=== PATIENT | female | born 1945 | race African-American/Black ===

== ENCOUNTER 2024-06-25 13:38 | Outpatient (CLI) | payer MEDICARE, SELFPAY ==
--- NOTE | ~2024-06-25 | XR_ITS ---
[id number] Ordering provider: Himanshu Quinn, History: . Cervicalgia . Comparison: None. FINDINGS: VERTEBRAL BODIES: Normal height and alignment. No visible fracture or subluxation. The dens is intact . DISK SPACES: Well maintained. PARASPINOUS SOFT TISSUES: No prevertebral soft tissue swelling. 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 IMPRESSION: No acute osseous abnormality cervical spine. 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 Reviewed, dictated and finalized at location A. IMPRESSION: No acute osseous abnormality cervical spine. 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
--- OUTSIDE RECORDS SUMMARY | 2024-06-26 14:07 | XMS_ITS | Continuity of Care Document ---
Author Organization [facility] Address [address] [place] [address] [address] [place] [address] Phone Care Team Providers Care Medical Office Coordinator Name Role Phone Abdulaziz Mak MD Unavailable Unavailable Procedures Procedure Date Office/outpatient Visit, Est Office/outpatient Visit, Est Progressive Lens, Plastic Frames Deluxe Tint Plastic, Non-Lizette Tax - Medical Office/outpatient Visit, Est Progressive Lens, Plastic Frames Deluxe Tint Plastic, Lizette 1 Or 2 Tax - Medical Office/outpatient Visit, Est Advance Directives Directive Yes / No Effective Date File Name No Information Encounters Encounter Description Practice Location Reason(s) For Visit Diagnoses Date Provider Providers Copied on Encounter Office/outpat ient Visit, [facility], [address] [place] [address] [address], [place], [place], [id number], [place] tel:[phone] [facility] No Information Oct-1 8-200 7 Aubree Cintron. [address] [facility] [address], [place], [place], [id number], [place]. tel:[phone] Office/outpat ient Visit, [facility], [address], [place], [place], [id number], [place] tel:[phone] [facility] No Information Sep-0 4-200 7 Aubree Cintron. [address], [place], [place], [id number], [place]. tel:[phone] [facility], [address], [place], [place], [id number], [place] tel:[phone] [facility] No Information 8[address] [facility] . [address] [facility], [address], [place], [place], [address], [place]. tel:[phone] Referring Provider: Abdulaziz Keen, [address] [facility] [address], [place], [address] . tel:[phone] sulting Provider: Dave Coelho, [facility], [place], [address]. tel:[phone] Office/outpat ient Visit, [facility], [address], [place], [place], [address], [place] tel:[phone] [facility] No Information 8200 7 Aubree Cintron. [address] [facility], [facility] [place], [id number], [place]. tel:[phone] [facility], [address], [place], [place], [address], [place] tel:[phone] [facility] No Information 0200 7 [facility] . [address] [facility], [address], [place], [place], [address], [place]. tel:[phone] Referring Provider: Abdulaziz Keen, [address] [facility] [address], [place], [address] . tel:[phone] sulting Provider: Dave Coelho, [facility] [address] [facility], [place], [address]. tel:[phone] Office/outpat ient Visit, [facility], [address], [place], [place], [address], [place] tel:[phone] [facility] No Information 0200 7 Aubree Cintron. [address] [facility], [place], [place], [address], [place]. tel:[phone] Family History Family Member Type Diagnosis Age At Onset No Information Payers Payer name Insurance type Covered republican ID Authoriza tion(s) No Information Social History Type Description Quantity Date Captured Comments Sex Female Smoking Status No Information Chief Complaint And Reason For Visit No Information Reason For Referral Reason For Referral No Information History Of Present Illness Encounter Date Complaint History Of Prese nt Illness No Information Functional Status Date Functional Assessmen t No Information Instructions Date Instruction Additional Infor mation No Information Assessments Type Assessment Date No Information Patient Care Teams Name Effective Dates (start - stop) Status Members No Information
--- OUTSIDE RECORDS SUMMARY | 2024-06-26 14:07 | XMS_ITS | Data Portability ---
Author Organization [place] - [facility] [employer], Main Office Address [address] [place] [address] Assessment Encounter Date Assessment Date Assessment LastModified by Organization Details LastModified Time 08/07/2022 08/07/2022 AFib anticoagulated and rate controlled. Rhinitis Singulair gout allopurinol GERD omeprazole AFib RVR stable still follows with Pulmonary Cardiology continue current therapy and follow up with me in 4 months [email or web address] Not available 09/15/2022 18:55:36 11/06/2022 11/06/2022 Will continue current therapy will follow-up in 4 months [email or web address] Not available 11/19/2022 10:24:25 12/11/2022 12/11/2022 Continue current therapy follow-up in 4 months [email or web address] Not available 12/13/2022 11:44:02 03/12/2023 03/12/2023 Warned of the il l effects of tobacco which were included but not limited to increased tumors of the aerodigestive tract increase incidence of heart attack stroke and cancer that can lead to cope chronic illness or sudden follow-up with me in 4 months continue current therapy [email or web address] Not available 03/25/2023 09:34:46 Plan of Treatment Reminders Order Date Submit Date Provider Last Modified By Organization Details Last Modified Time Details Appointments None recorded. Lab uric acid, serum or plasma 2022 023 [email or web address] [facility] (Lab), [address] [place], [address], 16:04:31 HbA1c (hemoglobin A1c), blood [email or web address] [place] [address] (Lab), [address] [place], [address], 4 18:25:52 T4, free, serum 2022 023 [facility] (Lab), [address] [place], [address], 3 16:04:55 T3, free, serum or plasma 2022 023 [facility] (Lab), [address] [place], [address], 3 16:36:30 TSH, serum or plasma 2022 023 [facility] (Lab), [address] [place], [address], 3 16:06:46 CMP, serum or plasma 2022 023 [facility] (Lab), [address] [place], [address], 3 16:04:20 lipid panel, serum 2022 023 [facility] (Lab), [address] [place], [address], 3 16:04:25 CBC w/ auto diff 2022 023 [email or web address] [facility] (Lab), [address] [place], [address], 3 13:47:39 Referral None recorded. Procedures None recorded. Surgeries None recorded. Imaging None recorded. Medication Orders mirtazapine 15 mg tablet 2022 023 [email or web address] [id number], [address], [place], [id number], 4 11:16:17 Patient TargetsNo targets recorded. Patient InstructionsNo instructions recorded. Reason for Referral None Reported. Results Created Date Observation Date Name Description Value Unit Range Abnormal Flag Note LastModifiedBy Organization Detail LastModifiedTime 11/07/1911/06/2022 CBC/C OMPLE TE BLD COUNT W/DIF F white blood cells 7.8 x10'3 /uL 4.2-10 .8 Not Available [facility] (Lab) [address] [place], [address], 11/06/2022 12:55:26 11/07/1911/06/2022 CBC/C OMPLE TE BLD COUNT W/DIF F red blood cells 3.97 x10'6 /uL 3.80-5 .20 Not Available [facility] (Lab) [address] [place], [address], 11/06/2022 12:55:26 11/07/1911/06/2022 CBC/C OMPLE TE BLD COUNT W/DIF F hemoglobin 11.8 g/dL 12.0-1 5.6 low Not Available [facility] (Lab) [address] [place], [address], 11/06/2022 12:55:26 11/07/1911/06/2022 CBC/C OMPLE TE BLD COUNT W/DIF F hematocrit 36.5 % 35.7-4 5.7 Not Available [facility] (Lab) [address] [place], [address], 11/06/2022 12:55:26 11/07/1911/06/2022 CBC/C OMPLE TE BLD COUNT W/DIF F mean red cell volume 91.9 fL 82.0-9 9.0 Not Available [facility] (Lab) [address] [place], [address], 11/06/2022 12:55:26 11/07/19 23 11/06/2022 CBC/C OMPLE TE BLD COUNT W/DIF F mean red cell hemoglobin 29.7 pg 27.0-3 3.0 Not Available [facility] (Lab) [address] [place], [address], 11/06/2022 12:55:26 11/07/1911/06/2022 CBC/C OMPLE TE BLD COUNT W/DIF F mean RBC HGB concentratio n 32.3 g/dL 31.0-[address] [facility] (Lab) [address] [place], [address], 11/06/2022 12:55:26 11/07/1911/06/2022 CBC/C OMPLE TE BLD COUNT W/DIF F red cell distribution width 15.6 % 11.8-1 5.5 high Not Available [facility] (Lab) [address] [place], [address], 11/06/2022 12:55:26 11/07/1911/06/2022 CBC/C OMPLE TE BLD COUNT W/DIF F platelets 201 x10'3 /uL 150-40 0 Not Available [facility] (Lab) [address] [place], [address], 11/06/2022 12:55:26 11/07/1911/06/2022 CBC/C OMPLE TE BLD COUNT W/DIF F mean platelet volume 9.7 fL 9.0-12 .4 Not Available [facility] (Lab) [address] [place], [address], 11/06/2022 12:55:26 11/07/1911/06/2022 CBC/C OMPLE TE BLD COUNT W/DIF F neutrophils 72.6 % 39.0-7 2.0 high Not Available [facility] (Lab) [address] [place], [address], 11/06/2022 12:55:26 11/07/19 23 11/06/2022 CBC/C OMPLE TE BLD COUNT W/DIF F lymphocytes 19.5 % 16.0-4 7.0 Not Available [facility] (Lab) [address] [place], [address], 11/06/2022 12:55:26 11/07/1911/06/2022 CBC/C OMPLE TE BLD COUNT W/DIF F monocytes 6.1 % 5.0-12 .0 Not Available [facility] (Lab) [address] [place], [address], 11/06/2022 12:55:26 11/07/1911/06/2022 CBC/C OMPLE TE BLD COUNT W/DIF F eosinophils 1.0 % 1.0-7. 0 Not Available [facility] (Lab) [address] [place], [address], 11/06/2022 12:55:26 11/07/1911/06/2022 CBC/C OMPLE TE BLD COUNT W/DIF F basophils 0.4 % 0.0-2. 0 Not Available [facility] (Lab) [address] [place], [address], 11/06/2022 12:55:26 11/07/1911/06/2022 CBC/C OMPLE TE BLD COUNT W/DIF F immature granulocytes 0.4 % 0.00-0 .50 Not Available [facility] (Lab) [address] [place], [address], 11/06/2022 12:55:26 11/07/1911/06/2022 CBC/C OMPLE TE BLD COUNT W/DIF F neutrophils, absolute count 5.64 x10'3 /uL 1.5-8. 0 Not Available [facility] (Lab) [address] [place], [address], 11/06/2022 12:55:26 11/07/1911/06/2022 CBC/C OMPLE TE BLD COUNT W/DIF F lymphocytes, absolute count 1.51 x10'3 /uL 1.07-3 .43 Not Available [facility] (Lab) [address] [place], [address], 11/06/2022 12:55:26 11/07/1911/06/2022 CBC/C OMPLE TE BLD COUNT W/DIF F monocytes, absolute count 0.47 x10'3 /uL 0.29-0 .99 Not Available [facility] (Lab) [address] [place], [address], 11/06/2022 12:55:26 11/07/1911/06/2022 CBC/C OMPLE TE BLD COUNT W/DIF F eosinophils, absolute count 0.08 x10'3 /uL 0.02-0 .53 Not Available [facility] (Lab) [address] [place], [address], 11/06/2022 12:55:26 11/07/1911/06/2022 CBC/C OMPLE TE BLD COUNT W/DIF F basophils, absolute count 0.03 x10'3 /uL 0.01-0 .08 Not Available [facility] (Lab) [address] [place], [address], 11/06/2022 12:55:26 11/07/1911/06/2022 CBC/C OMPLE TE BLD COUNT W/DIF F immature granulocytes ,absolute 0.03 x10'3 /uL 0.00-0 .05 Not Available [facility] (Lab) [address] [place], [address], 11/06/2022 12:55:26 11/07/1911/06/2022 CBC/C OMPLE TE BLD COUNT W/DIF F nucleated red blood cells 0.0 % -0 Not Available [facility] (Lab) [address] [place], [address], 11/06/2022 12:55:26 11/07/19 23 11/06/2022 CBC/C OMPLE TE BLD COUNT W/DIF F NRBC# 0.00 x10'3 /uL Not Available [facility] (Lab) [address] [place], [address], 11/06/2022 12:55:26 11/07/19 23 11/06/2022 HEMOG LOBIN A1C HA1C 6.3 % 4.0-6. 0 high Diabe tavia Scree naomi Crite tye: <5.7% Consi stent with absen ce of diabe tavia 5.7-6 .4% Consi stent with incre ased risk for diabe tavia (pred iabet es) >OR=6 .5% Consi stent with diabe tavia REFER ENCE: Diabe tavia Care 2016, 39( ppl.1 ):s13 -s22 Not Available [facility] (Lab) [address] [place], [address], 11/06/2022 13:40:06 11/07/19 23 11/06/2022 COMPR EHENS LAURA METAB OLIC PANEL sodium 139 mmol/ L 137-14 5 Not Available [facility] (Lab) [address] [place], [address], 11/06/2022 16:04:20 11/07/19 23 11/06/2022 COMPR EHENS LAURA METAB OLIC PANEL potassium 3.2 mmol/ L 3.5-5. 1 low Not Available [facility] (Lab) [address] [place], [address], 11/06/2022 16:04:20 11/07/19 23 11/06/2022 COMPR EHENS LAURA METAB OLIC PANEL chloride 100 mmol/ L 98-107 Not Available [facility] (Lab) [address] [place], [address], 11/06/2022 16:04:20 11/07/19 23 11/06/2022 COMPR EHENS LAURA METAB OLIC PANEL carbon dioxide 33 mmol/ L 22-[address] [facility] (Lab) [address] [place], [address], 11/06/2022 16:04:20 11/07/19 23 11/06/2022 COMPR EHENS LAURA METAB OLIC PANEL anion gap 9.2 mmol/ L 14-[address] [facility] (Lab) [address] [place], [address], 11/06/2022 16:04:20 11/07/19 23 11/06/2022 COMPR EHENS LAURA METAB OLIC PANEL glucose 138 mg/dL 70-99 high Not Available [facility] (Lab) [address] [place], [address], 11/06/2022 16:04:20 11/07/19 23 11/06/2022 COMPR EHENS LAURA METAB OLIC PANEL BUN 10 mg/dL 8-19 Not Available [facility] (Lab) [address] [place], [address], 11/06/2022 16:04:20 11/07/19 23 11/06/2022 COMPR EHENS LAURA METAB OLIC PANEL creatinine 0.65 mg/dL 0.66-1 .25 low Not Available [facility] (Lab) [address] [place], [address], 11/06/2022 16:04:20 11/07/1911/06/2022 COMPR EHENS LAURA METAB OLIC PANEL GFR >60 Refer ence Range : [place] GFR Healt hy Adult : >60 mL/mi n/1.7 3 m2 Chron ic Kidne y Disea se: 15-60 mL/mi n/1.7 3 m2 Kidne y Failu re: <15/m L/min /1.73 m2 www.n iddk. nih.g ov The MDRD study equat ion has not been valid ated in child denise <18 years of age; pregn ant women ; the elder ly >85 years of age; or in some racia l or ethni c subgr oups, such as Hispa nics. Outsi de the valid ated peyton eters , estim ated GFR is less accur ate, requi ring clini yonny judgm ent on a case- by-ca se basis . Clini yonny inter preta tion for other races and ages must be made by the clini uzma. The MDRD study equat ion has not been valid ated for the evalu ation of serum creat inine relat ed to nutri jordon l statu s or medic ation usage . For perso ns <18 years of age, a pedia tric GFR calcu lator is avail able on the [facility] websi te: https ://dulce maria nunez.yessica young/pr juan luisess ional s/kdo qi/gf r_cal culat or Not Available [facility] (Lab) [address] [place], [address], 11/06/2022 16:04:20 11/07/1911/06/2022 COMPR EHENS LAURA METAB OLIC PANEL alkaline phosphatase 93 U/L 38-126 Not Available [facility] (Lab) [address] [place], [address], 11/06/2022 16:04:20 11/07/19 23 11/06/2022 COMPR EHENS LAURA METAB OLIC PANEL alanine aminotransfe rase 19 U/L 0-35 Not Available [facility] (Lab) [address] [place], [address], 11/06/2022 16:04:20 11/07/19 23 11/06/2022 COMPR EHENS LAURA METAB OLIC PANEL aspartate aminotransfe rase 24 U/L 15-37 Not Available [facility] (Lab) [address] [place], [address], 11/06/2022 16:04:20 11/07/19 23 11/06/2022 COMPR EHENS LAURA METAB OLIC PANEL bilirubin, total 0.80 mg/dL 0.20-1 .30 Not Available [facility] (Lab) [address] [place], [address], 11/06/2022 16:04:20 11/07/19 23 11/06/2022 COMPR EHENS LAURA METAB OLIC PANEL calcium 9.0 mg/dL 8.4-10 .2 Not Available [facility] (Lab) [address] [place], [address], 11/06/2022 16:04:20 11/07/19 23 11/06/2022 COMPR EHENS LAURA METAB OLIC PANEL total protein 8.2 g/dL 6.3-8. 2 Not Available [facility] (Lab) [address] [place], [address], 11/06/2022 16:04:20 11/07/19 23 11/06/2022 COMPR EHENS LAURA METAB OLIC PANEL albumin 4.0 g/dL 3.0-4. 4 Not Available [facility] (Lab) [address] [place], [address], 11/06/2022 16:04:20 11/07/19 23 11/06/2022 COMPR EHENS LAURA METAB OLIC PANEL globulin 4.2 g/dL 2.6-4. 2 Not Available [facility] (Lab) [address] [place], [address], 11/06/2022 16:04:20 11/07/19 23 11/06/2022 COMPR EHENS LAURA METAB OLIC PANEL A/G ratio 1.0 ratio 1.0-2. 0 Not Available [facility] (Lab) [address] [place], [address], 11/06/2022 16:04:20 11/07/19 23 11/06/2022 LIPID PANEL cholesterol 137 mg/dL 140-19 9 low NIH OLIVIA NSUS RECOM MENDA TION FOR CHRISTIANO STERO L: ADULT CHILD LOW RISK: <200 <170 BORDE RLINE : <200- 239 ----- HIGH RISK: >240 >200 Not Available [facility] (Lab) [address] [place], [address], 11/06/2022 16:04:25 11/07/19 23 11/06/2022 LIPID PANEL triglyceride s 51 mg/dL 0-150 NIH OLIVIA NSUS REPOR T RECOM MENDA TION FOR TRIGL YCERI MARVA: ADULT CHILD LOW RISK: <150 ----- BODER LINE: 150-1 99 ----- HIGH RISK: >200 ----- Not Available [facility] (Lab) [address] [place], [address], 11/06/2022 16:04:25 11/07/19 23 11/06/2022 LIPID PANEL HDL cholesterol 62 mg/dL 40- Not Available [facility] (Lab) [address] [place], [address], 11/06/2022 16:04:25 11/07/19 23 11/06/2022 LIPID PANEL LDL cholesterol, calculated 65 mg/dL 0-130 NIH OLIVIA NSUS REPOR T RECOM MENDA TIONS FOR LDL: ADULT CHILD LOW RISK <130 <110 (OPTI MAL LDL) <100 ----- BORDE RLINE : 130-1 59 ----- HIGH RISK: >160 >130 A TRIGL YCERI DE RESUL T >400 INVAL IDATE S THE CALCU LATIO N FOR LDL FRACT IONAT ION - THE LDL RESUL T WILL NOT BE REPOR GINGER. Not Available [facility] (Lab) [address] [place], [address], 11/06/2022 16:04:25 11/07/1911/06/2022 URIC ACID SERUM uric acid 5.2 mg/dL 2.5-6. 2 Not Available [facility] (Lab) [address] [place], [address], 11/06/2022 16:04:31 11/07/19 23 11/06/2022 T4 FREE free T4 1.72 NG/dL 0.78-2 .19 Not Available [facility] (Lab) [address] [place], [address], 11/06/2022 16:04:55 11/07/19 23 11/06/2022 TSH thyroid-stim ulating hormone 1.890 uIU/m L 0.465- 4.680 Not Available [facility] (Lab) [address] [place], [address], 11/06/2022 16:06:46 11/07/19 23 11/06/2022 T3 FREE free T3 3.9 pg/mL 2.77-5 .27 Not Available [facility] (Lab) [address] [place], [address], 11/06/2022 16:36:30 08/06/19 23 07/20/2022 XR, chest No observ ation record ed. [facility] [address] [place], [address], 08/07/2022 16:10:20 08/06/19 23 07/20/2022 XR, chest No observ ation record ed. [facility] [address] [place], [address], 08/07/2022 16:08:56 01/29/20 23 01/20/2023 , echoc ardio gram No observ ation record ed. [email or web address] [facility] [address], [place], [address], 03/01/2023 11:51:45 Result Notes None recorded. Problems Name Problem SNOMED Code Status Onset Date Resolution Date Notes Provider Name and Address Organization Details Recorded Time Benign essential hypertensi on 9558778 Active Florence Rodríguez RN null, [place] [facility] [employer] 11:08:21 Bronchiect asis 20567906 Active 2021 Florence Rodríguez RN null, [facility] 4 11:08:22 Abscess 883779049 Active 2021 Florence Rodríguez RN null, [facility] 4 11:08:22 Chronic obstructiv e pulmonary disease 30139913 Active 2021 Florence Rodríguez RN null, [facility] 4 11:08:22 Urinary incontinen ce 658352777 Active 2022 Florence Rodríguez RN null, [facility] 4 11:08:22 Gastroesop hageal reflux disease 658107046 Active Florence Rodríguez RN null, [facility] 4 11:08:22 Dyspnea 054874025 Active 2021 Florence Rodríguez RN null, [facility] 4 11:08:22 Lesion of breast 716443290 Active Florence Rodríguez RN null, [facility] 4 11:08:22 Sarcoidosi s 30586478 Active 2019 Florence Rodríguez RN null, [facility] 4 11:08:22 Vitamin D deficiency 23003886 Active Florence Rodríguez RN null, [facility] 4 11:08:22 Irregular heart beat 402503073 Completed 201705/29/2017 Not Available [facility] 3 02:58:44 Neuropathy 713462705 Active Florence Rodríguez RN null, [facility] 4 11:08:22 Chronic atrial fibrillati on 596040788 Active 2021 Florence Rodríguez RN null, [facility] 4 11:08:22 Upper respirator y infection 80429843 Active 2021 Florence Rodríguez RN null, [facility] 4 11:08:22 Rhinitis 82786020 Active Florence Rodríguez RN null, [facility] 4 11:08:22 Diabetes mellitus 86249512 Active 2019 Florence Rodríguez RN null, [facility] 4 11:08:22 Palpitatio ns 39151527 Active 2016 Florence Rodríguez RN null, [facility] 4 11:08:22 Skin sensation disturbanc e 67344930 Active Florence Rodríguez RN null, [facility] 4 11:08:22 Gout 06777244 Active 2022 Florence Rodríguez RN null, [facility] 4 11:08:22 Fatigue 63319439 Active 2022 Florence Rodríguez RN null, [facility] 4 11:08:22 Notes:Medical History: Rhini tis Eosinophils 80/uL Severe COPD Hypertension EF 55% Elevated BNP Atrial fibrillation on warfarin Mod AR/MR/TR LAE, ROSIO PASP 41 mmHg T2DM with neuropathy/nephropathy GERD Urge urinary incontinence Vit D deficiency 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 Procedures Surgical History Date Name Laterality Status Provider Name and Address Organization Details Recorded Time 06/15/19 22 drainage of abscess completed Not Available [facility] 04/24/2022 02:51:32 05/30/19 18 Colonoscopy completed Not Available [facility] 04/25/19 02:51:32 05/29/19 18 Date of Last Colonoscopy completed Not Available [facility] 04/24/2022 02:51:28 05/30/19 17 Exc tr-ext b9+tabitha >4.0 cm completed Not Available [facility] 04/24/2022 02:51:32 05/30/19 17 Exc h-f-nk-sp b9+tabitha 2.1-3 completed Not Available [facility] 04/24/2022 02:51:32 Hysterectomy completed [facility] 04/24/2022 02:51:32 Imaging Results Imaging Date Name Status LastModified by Organization Details LastModified Time 07/20/2022 XR, chest completed [facility] [address] [facility], [place], [address], 08/07/2022 16:10:20 07/20/2022 XR, chest completed [facility] [address] [place], [address], 08/07/2022 16:08:56 01/20/2023 US, echocardiogram completed [address] [facility] [address], [place], [address], 03/01/2023 11:51:45 Procedure Notes None recorded. Medical Equipment None Reported. Allergies No known drug allergies Medications Name Sig Start Date Stop Date Status Note LastModified by Organization Details LastModified Time furosemid e 40 mg tablet TAKE 1 TABLET BY MOUTH EVERY DAY active Not Available Not Available No t Available metformin 500 mg tablet TAKE 1 TABLET BY MOUTH EVERY DAY 03/12 completed Not Available Not Available Not Available Ceftin 500 mg tablet Take 1 tablet every 12 hours by oral route for 10 days. 05/14 completed Not Available Not Available Not Available Klor-Con 10 mEq tablet,ex tended release Take 1 tablet every day by oral route. 2021 active Not Available Not Available Not Avai lable azithromy wilma 250 mg tablet TAKE 2 TABLETS (500 MG) BY ORAL ROUTE ONCE DAILY FOR 1 DAY THEN 1 TABLET (250 MG) BY ORAL ROUTE ONCE DAILY FOR 4 DAYS 03/21 completed Not Available Not Available Not Available metoprolo l succinate ER 50 mg tablet,ex tended release 24 hr TAKE 1 TABLET BY MOUTH DAILY AT NIGHT active Not Available Not Available No t Available hydrocodo ne 5 mg-acetam inophen 325 mg tablet TAKE 1 TABLET BY MOUTH EVERY 6 HOURS NEEDED 12/13 completed Not Available Not Available Not Available diltiazem CD 240 mg capsule,e xtended release 24 hr TK 1 C PO D 12/13 completed Not Available Not Available Not Available prednison e 20 mg tablet TAKE 2 TABLETS BY MOUTH EVERY DAY 08/07 completed Not Available Not Available Not Available ciproflox acin 250 mg tablet TAKE 1 TABLET BY MOUTH TWICE DAILY 09/13 completed Not Available Not Available Not Available allopurin ol 100 mg tablet TAKE 1 TABLET BY MOUTH DAILY 03/12 completed Not Available Not Available Not Available aspirin 81 mg tablet,de layed release Take 1 tablet every day by oral route. 11/19 completed Not Available Not Available Not Available doxycycli ne monohydra te 100 mg tablet TAKE 1 TABLET BY MOUTH TWICE DAILY FOR 10 DAYS active Not Available Not Available No t Available oxycodone -acetamin ophen 5 mg-325 mg tablet 04/30 completed Not Available Not Available Not Available magnesium oxide 400 mg (241.3 mg magnesium ) tablet TK 1 T PO BID 02/11 completed Not Available Not Available Not Available lisinopri l 10 mg tablet 06/10 completed Not Available Not Available Not Available warfarin 5 mg tablet TAKE 1 TABLET BY MOUTH EVERY DAY. EXCEPT ON FRIDAY TAKE A HALF OF A TABLET TO. MAKE 2.5 MG 08/07 completed Not Available Not Available Not Available metoprolo l tartrate 50 mg tablet Take 1 tablet twice a day by oral route. 02/11 completed Not Available Not Available Not Available omeprazol e 20 mg capsule,d elayed release TAKE 1 CAPSULE BY MOUTH EVERY DAY active Not Available Not Available No t Available felodipin e ER 10 mg tablet,ex tended release 24 hr TAKE 1 TABLET BY MOUTH EVERY MORNING active Not Available Not Available No t Available montel[facility] st 10 mg tablet TAKE 1 TABLET BY MOUTH EVERY DAY active Not Available Not Available No t Available lisinopri l 5 mg tablet TAKE ONE TABLET BY MOUTH EVERY DAY 04/26 completed stopped in hosp Not Available Not Available Not Available hydrochlo rothiazid e 25 mg tablet TK 1 T PO QD 05/10 completed Not Available Not Available Not Available furosemid e 20 mg tablet TAKE 1 TABLET BY MOUTH EVERY DAY 08/07 completed Not Available Not Available Not Available mirtazapi ne 15 mg tablet TAKE 1 TABLET BY MOUTH EVERY DAY 03/12 completed Not Available Not Available Not Available ergocalci ferol (vitamin D2) 1,250 mcg (50,000 unit) capsule TAKE 1 CAPSULE BY MOUTH EVERY OTHER WEEK active Not Available Not Available No t Available levofloxa wilma 500 mg tablet TAKE 1 TABLET BY MOUTH ONCE A DAY FOR 7 DAYS 03/27 completed Not Available Not Available Not Available levofloxa wilma 750 mg tablet TAKE 1 TABLET BY MOUTH EVERY DAY 08/07 completed Not Available Not Available Not Available albuterol sulfate HFA 90 mcg/actua tion aerosol inhaler INHALE 1 PUFF BY MOUTH FOUR TIMES DAILY DIRECTED active Not Available Not Available No t Available colchicin e 0.6 mg tablet TAKE 2 TABLETS BY MOUTH TWICE DAILY 12/13 completed Not Available Not Available Not Available fluticaso ne propionat e 50 mcg/actua tion nasal spray,sienna pension SPRAY TWICE IN EACH NOSTRIL ONCE DAILY active Not Available Not Available No t Available amoxicill in 875 mg-potass ium clavulana te 125 mg tablet 11/19 completed Not Available Not Available Not Available neomycin- polymyxin -hydrocor t 3.5 mg-10,000 unit/mL-1 % ear drops,sienna p 2014 active Not Available Not Available Not Avai lable Vigamox 0.5 % eye drops 04/28 completed Not Available Not Available Not Available metoprolo l tartrate 25 mg tablet 04/30 completed Not Available Not Available Not Available DILT-XR 180 mg capsule, extended release TK ONE C PO D 02/11 completed Not Available Not Available Not Available peg 3350 240 gram-elec trolytes 22.72 gram-6.72 g-5.84 g powdr for soln 05/29 completed Not Available Not Available Not Available oseltamiv ir 30 mg capsule TK 1 C PO BID 04/26 completed Not Available Not Available Not Available Durezol 0.05 % eye drops 04/28 completed Not Available Not Available Not Available Vitamin D3 50 mcg (2,000 unit) capsule Take 1 capsule every day by oral route. 07/03 completed Not Available Not Available Not Available Xarelto 20 mg tablet 04/30 completed Not Available Not Available Not Available OneTouch Verio test strips USE TO TEST TWICE DAILY active Not Available Not Available No t Available Myrbetriq 25 mg tablet,ex tended release TAKE 1 TABLET BY MOUTH DAILY active Not Available Not Available No t Available Ilevro 0.3 % eye drops,sienna pension 04/28 completed Not Available Not Available Not Available Eliquis 5 mg tablet TAKE 1 TABLET BY MOUTH TWICE DAILY 03/12 completed Not Available Not Available Not Available Fluvirin 45 mcg (15 mcg x 3)/0.5 mL intramusc ular suspensio n INJECT 0.5 ML INTRAMUS CULARLY DIRECTED . active Not Available Not Available No t Available OneTouch Verio Flex Meter USE TO TEST TWICE DAILY active Not Available Not Available No t Available Trelegy Ellipta 100 mcg-62.5 mcg-25 mcg powder for inhalatio n INHALE 1 PUFF BY MOUTH EVERY DAY active Not Available Not Available No t Available OneTouch Delica Plus Lancet 33 gauge USE TO TEST TWICE DAILY active Not Available Not Available No t Available Fluzone High-Dose Quad (PF) 240 mcg/0.7 mL IM syringe ADM 0.7ML IM UTD 05/10 completed Not Available Not Available Not Available Vitals Date Recorded Body height Body mass index (BMI) Body weight Body temperature Heart rate Systolic blood pressure Diastolic blood pressure Provider Name and Address Organization Details Last Updated DateTime 3 170.18 cm 24 kg/m2 37504.6 3 g 97.3 [degF] 82 /min 122 mm[Hg] 76 mm[Hg] LEVON Enriquez [facility] [employer] [facility] 3 14:22:31 Date Recorded Body height Body mass index (BMI) Body weight Body temperature Heart rate Systolic blood pressure Diastolic blood pressure Provider Name and Address Organization Details Last Updated DateTime 3 170.18 cm 23 kg/m2 31019.0 8 g 97.8 [degF] 88 /min 118 mm[Hg] 84 mm[Hg] LEVON Enriquez [facility] [employer] [facility] 3 11:41:05 Date Recorded Body height Body mass index (BMI) Body weight Body temperature Heart rate Oxygen saturation Oxygen saturation in Arterial blood by Pulse oximetry Systolic blood pressure Diastolic blood pressure Provider Name and Address Organization Details Last Updated DateTime 3 170.18 cm 23.2 kg/m2 69497.6 7 g 97.8 [degF] 84 /min 97 % 97 % 122 mm[Hg] 80 mm[Hg] Nova Ndiaye RN [facility] [employer] [facility] 3 12:05:14 Date Recorded Body weight Body temperature Respiratory rate Pain severity - 0-10 verbal numeric rating [Score] - Reported Heart rate Oxygen saturation Oxygen saturation in Arterial blood by Pulse oximetry Systolic blood pressure Diastolic blood pressure Provider Name and Address Organization Details Last Updated DateTime 4 05348.1 1 g 95.3 [degF] 20 /min 0 80 /min 99 % 99 % 152 mm[Hg] 82 mm[Hg] Florence Rodríguez RN [facility] [employer] 4 11:19:42 Date Recorded Body mass index (BMI) Body height Heart rate Body temperature Body weight Systolic blood pressure Diastolic blood pressure Provider Name and Address Organization Details Last Updated DateTime 3 24.9 kg/m2 170.18 cm 70 /min 98.3 [degF] 99727.1 9 g 118 mm[Hg] 74 mm[Hg] Not Available [employer] 3 02:55:45 Social History Question Answer Notes LastModified by Organization Details LastModified Time Tobacco Smoking Status Former Smoker quit May 2022 LEVON Enriquez, MS [employer] [facility] [employer] 08/07/2022 14:21:09 Do You Have An Advance Directive? No MIGRATION.0301 823127 Information not available 04/24/2022 What Is Your Level Of Alcohol Consumption? None MIGRATION.030 569455 Information not available 04/24/2022 Do You Wear A Helmet When Biking? No MIGRATION.030 163589 Information not available 04/24/2022 Are You Blind Or Do You Have Difficulty Seeing? No MIGRATION.030 175441 Information not available 04/24/2022 What Is Your Level Of Caffeine Consumption? Occasional MIGRATION.0301 484339 Information not available 04/24/2022 How Much Tobacco Do You Chew? None MIGRATION.0301 384846 Information not available 04/24/2022 In The 14 Days Before Symptom Onset, Have You Had Close Contact With A Laboratory-confi rmed COVID-19 While That Case Was Ill? No MIGRATION.0301 893181 Information not available 04/24/2022 In The 14 Days Before Symptom Onset, Have You Had Close Contact With A Person Who Is Under Investigation For COVID-19 While That Person Was Ill? No MIGRATION.0301 909115 Information not available 04/24/2022 Are You Deaf Or Do You Have Serious Difficulty Hearing? No MIGRATION.0301 221000 Information not available 04/24/2022 What Type Of Diet Are You Following? REGULAR MIGRATION.0301 [id number] Information not available 04/24/2022 Which Illicit Or Recreational Drugs Have You Used? None MIGRATION.0301 897468 Information not available 04/24/2022 Do You Or Have You Ever Used E-cigarettes Or Vape? Never Used Electronic Cigarettes MIGRATION.0301 660726 Information not available 04/24/2022 What Is The Highest Grade Or Level Of School You Have Completed Or The Highest Degree You Have Received? [id number] MIGRATION.0301 153797 Information not available 04/24/2022 What Is Your Occupation? Retired MIGRATION.0301 080891 Information not available 04/24/2022 Have There Been Any Changes To Your Family Or Social Situation? No MIGRATION.0301 093622 Information not available 04/24/2022 Are There Any Guns Present In Your Home? No MIGRATION.0301 459879 Information not available 04/24/2022 Do You Use Insect Repellent Routinely? No MIGRATION.0301 916474 Information not available 04/24/2022 Where Do You Live? SingleLevelHouse MIGRATION.0301 234472 Information not available 04/24/2022 Do You Have A Medical Power Of V Belt Coverer? No MIGRATION.0301 957579 Information not available 04/24/2022 What Was The Date Of Your Most Recent Tobacco Screening? 12/11/2022 [email or web address] Information not available 12/11/2022 Do You Have Any Pets? Yes MIGRATION.0301 185984 Information not available 04/24/2022 What Is Your Relationship Status? MIGRATION.0301 595522 Information not available 04/24/2022 Do You Use Your Seat Belt Or Car Seat Routinely? Yes MIGRATION.0301 870209 Information not available 04/24/2022 Do You Have Smoke And Carbon Monoxide Detectors In Your Home? Yes MIGRATION.0301 744667 Information not available 04/24/2022 At What Age Did You Start Smoking Tobacco? 13 MIGRATION.0301 998570 Information not available 04/24/2022 Are You Passively Exposed To Smoke? Yes MIGRATION.0301 689491 Information not available 04/24/2022 Do You Or Have You Ever Used Smokeless Tobacco? Never Used Smokeless Tobacco MIGRATION.0301 914391 Information not available 04/24/2022 Are There Any Smokers In Your House? Yes MIGRATION.0301 375048 Information not available 04/24/2022 How Much Tobacco Do You Smoke? 0.25 PPD MIGRATION.030 653141 Information not available 04/24/2022 Do You Feel Stressed (tense, Restless, Nervous, Or Anxious, Or Unable To Sleep At Night)? [id number] MIGRATION.0301 560237 Information not available 04/24/2022 Do You Use Any Illicit Or Recreational Drugs? No MIGRATION.0301 993999 Information not available 04/24/2022 Do You Use Sunscreen Routinely? No MIGRATION.0301 484289 Information not available 04/24/2022 Have You Recently Traveled Abroad? No MIGRATION.0301 784147 Information not available 04/24/2022 Do You Have Any Dietary Restrictions? No MIGRATION.0301 616113 Information not available 04/24/2022 Do You Or Have You Ever Used Any Other Forms Of Tobacco Or Nicotine? No MIGRATION.0301 365086 Information not available 04/24/2022 Sex: Female Functional Status Question Answer Note LastModified by [employer] ion Details LastModified Time Do you have difficulty walking or climbing stairs? No MIGRATION.0295570 026 Information not available 04/24/2022 Do you have transportation difficulties? No MIGRATION.6493782 026 Information not available 04/24/2022 Are you able to walk? YESWOREST MIGRATION.0999618 026 Information not available 04/24/2022 Do you have difficulty doing errands alone? No MIGRATION.1313566 026 Information not available 04/24/2022 Are you able to care for yourself? Yes MIGRATION.5188153 026 Information not available 04/24/2022 Do you have difficulty dressing or bathing? No MIGRATION.7944155 026 Information not available 04/24/2022 What is your exercise level? Moderate MIGRATION.6413209 026 Information not available 04/24/2022 Mental Status Question Answer Note LastModified by [employer] ion Details LastModified Time Do you have difficulty concentrating, remembering or making decisions? No MIGRATION.[id number] 6 Information not available 04/24/2022 Family History Relationship Description Onset Age of this Age Resolved Age Notes LastModified by Organization Details LastModified Time Paternal Grandmother General health good MIGRATION.786 [id number] Not available 04/24/2022 02:51:36 Father Congestive heart failure MIGRATION.306 [id number] Not available 04/24/2022 02:51:36 Medical History Condition Response BLINDNESS N NERVE DISEASE Y RHEUMATIC FEVER N BLADDER PROBLEMS N KIDNEY STONES N MRSA N OTHER # 1 N POLIO N LUNG DISEASE/DISORDER Y HISTORY OF DRUG ABUSE N RADIATION / CHEMOTHERAPY N COPD N Other # 2 N BLOOD DISEASES N SURGERY N EAR OR HEARING PROBLEMS N MUMPS N SHINGLES N DEPRESSION (INCLUDING POST ) N BOWEL PROBLEMS N STROKE/TIA N ULCERS N BENIGN PROSTATIC HYPERPLASIA N MEASLES Y HYPOTENSION N MYOCARDIAL INFARCTION N OBESITY N GERD/NAUSEA Y ANEURYSM N URINARY/BLADDER/KIDNEY PROBLEMS N INPATIENT PSYCH CARE N CORONARY ARTERY DISEASE (CAD) N ADDICTION CONCERNS N ENDOMETRIOSIS N Impotence N USE OF BLOOD THINNERS Y SKIN PROBLEMS N GASTROINTESTINAL DISORDER N PERIPHERAL VASCULAR DISEASE N MUSCLE,JOINT OR BONE PROBLEMS N GASTROINTESTINAL BLEEDING N BLOOD CLOTS N ASTHMA N CATARACTS N ERECTILE DYSFUNCTION N VARICOSITIES N GI PROBLEMS N Low Testosterone N INFERTILITY N AIDS/HIV N CHEMOTHERAPY / RADIATION N LIVER DISEASE N MALE HYPOGONADISM N HYPERTENSION Y Deficiency Y TOURETTE'S N ANXIETY DISORDER N BLOOD TRANSFUSION N ANEMIA/BLOOD DISORDER N CHRONIC EAR INFECTIONS N BRONCHITIS N TUBERCULOSIS N GLAUCOMA N FOOT PROBLEM N DIVERTICULITIS N CHICKENPOX Y SLEEP APNEA N INFECTIOUS DISEASE N HEART ARRHYTHMIA N PROSTATE N INSOMNIA N HIGH CHOLESTEROL / HYPERLIPIDEMIA Y HYPERTHYROIDISM N EYE PROBLEMS N NEUROLOGICAL PROBLEMS N EDEMA N CHRONIC PAIN SYNDROME N HYPOTHYROIDISM N CAROTID BLOCKAGE N CONSTIPATION N BACK / NECK PROBLEMS N HAVE YOU BEEN HOSPITALIZED OR SEEN IN [facility] IN THE PAST YEAR ? N ATHEROSCLEROSIS N BREAST PROBLEMS N DIALYSIS N ECZEMA N OSTEOPOROSIS N ARTHRITIS N APPENDICITIS N DIABETES, TYPE Y BAD TEETH N ENT N HEARTBURN / REFLUX N AUTISM SPECTRUM DISORDER (ASD) N HEPATITIS / LIVER DISEASE N PULMONARY DISEASE N GOUT N SLEEP DISORDER N ALZHEIMER'S DISEASE N Brain Problems N HERPES N DEMENTIA N HEADACHES/MIGRAINES N SEIZURES/EPILEPSY N VASCULAR DISEASE N PACEMAKER N Blood Disorder N DIZZINESS N HEART DISEASE/HEART PROBLEMS N KIDNEY DISEASE N MULTIPLE SCLEROSIS N CARDIAC ARRHYTHMIA N CANCER: SPECIFY N ANESTHESIA COMPLICATIONS N ATRIAL FIBRILLATION Y Gall Stones N PULMONARY EMBOLISM N AUTOIMMUNE DISEASE N Gynecological History Statement/Question Response Date of Last Pap Date of Last Mammogram 04/25/2017 Date of Last Colonoscopy 05/28/2017 Obstetrics History GPAL:G 0 P 0 0 0 0 Immunizations Vaccine Type Date Status Note Provider Nam e and Address Organization Details Recorded Time COVID-19, mRNA, LNP-S, PF, 100 mcg/0.5mL dose or 50 mcg/0.25mL dose 01/05/2021 completed Not Available [facility] 3 00:19:52 Influenza, high-dose, quadrivalent, PF 12/31/2020 completed Not Available [facility] 3 00:19:52 COVID-19, mRNA, LNP-S, PF, 100 mcg/0.5mL dose or 50 mcg/0.25mL dose 04/28/2020 completed Not Available [facility] 3 00:19:52 COVID-19, mRNA, LNP-S, PF, 100 mcg/0.5mL dose or 50 mcg/0.25mL dose 03/31/2020 completed Not Available [facility] 3 00:19:52 Influenza, high-dose, quadrivalent, PF 12/20/2019 completed Not Available [facility] 3 00:19:52 Influenza, high-dose, quadrivalent, PF 11/28/2021 completed Not Available [facility] 3 00:19:52 Influenza, high-dose, trivalent, PF 12/27/2015 completed Not Available [facility] 2022 00:19:52 Influenza, split virus, quadrivalent, PF 12/28/2014 completed Not Available [facility] 3 00:19:52 Past Encounters Encounter ID Performer Location Encounter Start Date Encounter Closed Date Diagnosis/Indication Diagnosis SNOMED-CT Code Diagnosis ICD10 Code Diagnosis Note [id number] Himanshu Quinn MD [facility] Internal Med [facility] [address] [address] 05/10/2020 00:00:00 05/21/2020 18:46:10 [id number] Himanshu Quinn MD [facility] Internal Med [facility] [address] [place] [address] [address] 09/13/2020 00:00:00 09/16/2020 12:37:12 [id number] Himanshu Quinn MD [facility] Internal Med [facility] [address] [facility] [address] [address] 12/13/2020 00:00:00 12/31/2020 15:04:52 [id number] Forrest Prado MD [facility] Pulmonolo [facility] [address] [place] [address] 12/27/2020 00:00:00 12/27/2020 15:08:33 [id number] Himanshu Quinn MD [facility] Internal Med [facility] [address] [place] [address]., [address] [address] 03/21/2021 00:00:00 03/21/2021 21:33:36 [id number] MD EDWARD BrasherS_[facility]G Internal Med [facility] [address] [place] [address]., [address] [address] 06/13/2021 00:00:00 06/23/2021 14:11:34 [id number] Grant cohen MD S[facility] General Surgery [address] [facility] [address] [address] 06/14/2021 00:00:00 06/14/2021 11:56:19 [id number] Grant cohen MD [facility] General Surgery [address] [place] [address]., [address] [address] 06/19/2021 00:00:00 06/19/2021 13:41:05 [id number] Himanshu Quinn MD [facility] Internal Med [facility] [address] [place] [address]., [address] [address] 1 06/21/2021 00:00:00 06/23/2021 14:12:54 [id number] Himanshu Quinn MD [facility] Internal Med [facility] [address] [place], [place] [address]., [address] [address] 06/27/2021 00:00:00 06/27/2021 21:35:08 [id number] Grant cohen MD [facility] General Surgery [address] [facility] [address] [place] [address] 07/03/2021 00:00:00 07/03/2021 13:57:08 [id number] Himanshu Quinn MD [facility] Internal Med [facility] [address] [facility] [address] 08/06/2021 00:00:00 09/01/2021 16:55:53 [id number] Himanshu Quinn MD [facility] Internal Med [facility] [address] [address] 08/29/2021 00:00:00 08/29/2021 18:26:54 [id number] Himanshu Quinn MD [facility] Internal Med [facility] 2043 [facility], [address] [address] 11/28/2021 00:00:00 01/13/2022 21:13:52 [id number] Hiamnshu Quinn MD [facility] Internal Med [facility] [address] [address] 03/27/2022 00:00:00 03/27/2022 22:35:23 [id number] Himanshu Quinn MD [facility] Internal Med [facility] [address] [address] 08/07/2022 14:04:41 08/07/2022 15:35:32 Chronic atrial fibrillation 580207553 I48.20 Bronchiectasis 34928805 J47.9 Chronic ob structive pulmonary disease 65426173 J44.9 Gastroesop hageal reflux disease 301924360 K21.9 Diabetes mellitus 109249 09 E11.9 [id number] Himanshu Quinn MD [facility] Internal Med [facility] [address] [place] [address] 11/06/2022 11:15:40 11/06/2022 12:11:07 Benign essential hypertension 4873952 I10 Diabetes mellitus 178850 09 E11.9 Gout 57101662 M10.9 Fatigue 98442782 R53.83 Chronic at rial fibrillation 541675921 I48.20 Sarcoidosis 48017144 D86 .9 [id number] Himanshu Quinn MD [facility] Internal Med [address] [place] [address] 12/11/2022 11:19:11 12/11/2022 12:56:13 Bronchiectasis 32840144 J47.9 Chronic at rial fibrillation 755316116 I48.20 Sarcoidosis 28565995 D86 .9 Urinary incontinence 165 013607 R32 Benign ess ential hypertension 7036925 I10 Diabetes mellitus 307660 09 E11.9 [id number] Himanshu Quinn MD [facility] Internal Med [address] [place] [address] 03/12/2023 11:05:21 03/12/2023 12:17:53 Benign essential hypertension 8463432 I10 Chronic ob structive pulmonary disease 53842295 J44.9 Diabetes mellitus 044435 09 E11.9 Gastroesop hageal reflux disease 396118446 K21.9 Chronic at rial fibrillation 872128797 I48.20 Sarcoidosis 88483013 D86 .9 Health Concerns Section Related Observation LastModified by Organization Detai ls LastModified Time None Recorded Concern Status LastModified by Organization Details LastModified Time None Recorded Advance Directives Directive N: Payers Encounter Date Sequence Insurance Name Policy Number Policy Cortes Covered Member ID Cortes Member ID Guarantor Name 08/07/2022 1 [facility] (MEDICARE REPLACEMENT/A DVANTAGE - PPO) [id number] Jacqueline El [id number] Jacqueline El 11/06/2022 1 [facility] (MEDICARE REPLACEMENT/A DVANTAGE - PPO) [id number] Jacqueline El [id number] Jacqueline El 12/11/2022 1 [facility] (MEDICARE REPLACEMENT/A DVANTAGE - PPO) [id number] Jacqueline El [id number] Jacqueline El 03/12/2023 1 [facility] (MEDICARE REPLACEMENT/A DVANTAGE - PPO) [id number] Jacqueline El [id number] Jacqueline El Notes Date Note Type Note Provider Name and Address Organization Details Recorded Time 08/07/2022 text/html Hospitalized las t month AFib RVR little bit of pneumonia she is feeling better no major changes in her medication regimen diabetes has been doing fine Himanshu Quinn MD [address], [place], [address], [employer] [facility] [employer] [facility] 09/15/2022 18:55:57 11/06/2022 text/html AFib RVR little bit of pneumonia she is feeling better no major changes in her medication regimen diabetes has been doing fine Himanshu Quinn MD [address], [place], [address], [facility] [employer] [facility] [employer] [facility] 11/19/2022 10:25:44 12/11/2022 text/html Bronchiectasis d oing fine COPD stable sarcoid cough sometimes AFib no palpitations or dizziness urinary incontinence better hypertension no headache no dizziness diabetes no polyphagia no polydipsia Himanshu Quinn MD [address], [place], [address], [employer] [facility] [employer] [facility] 12/13/2022 11:44:20 03/12/2023 text/html Bronchiectasis d oing fine COPD stable sarcoid cough sometimes AFib no palpitations or dizziness urinary incontinence better hypertension no headache no dizziness diabetes no polyphagia no polydipsia Himanshu Quinn MD [address], [place], [address], [employer] [facility] [employer] [facility] 03/25/2023 09:35:04 OBGyn Episode No OBEpisode recorded.
--- OUTSIDE RECORDS SUMMARY | 2024-06-26 14:07 | XMS_ITS | Referral Summary ---
Author Organization [facility] [address] Address [address] [place] [address] Care Team Providers Care Dean Of Student Services Name Role Phone Himanshu Quinn MD Primary Care Provider [phone] Allergies No known active allergies Medications lisinopril (PRINIVIL,ZESTRI L) 5 mg tablet Take 5 mg by mouth daily. Active omeprazole (PriLOSEC) 20 mg capsule Take 20 mg by mouth daily. Active felodipine (PLENDIL) 10 mg 24 hr tablet Take 10 mg by mouth daily. Active rivaroxaban (XARELTO) 20 mg tablet Take 1 tablet (20 mg total) by mouth daily. 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/2016): PULMONARY TB NOS-UNSPEC Benign hypertension 07/10/2013 Overview (05/31/2016): BENIGN HYPERTENSION Atopic rhinitis 07/10/2013 Overview (05/31/2016): ALLERGIC RHINITIS NOS Impaired fasting glucose 07/10/2013 Overview (05/31/2016): IMPAIRED FASTING GLUCOSE Immunizations Immunization Administration Dates Next Due Influenza, Split 12/15/2009 Influenza, Trivalent, IM (MDV) 12/21/2008 Pneumococcal Polysaccharide PPV23 12/15/2009 Social History Tobacco Use Types Packs/Day Years Used Date Smoking Tobacco: Every Day Cigarettes Smokeless Tobacco: Never Alcohol Use Standard Drinks/Week Comments No 0 (1 standard drink = 0.6 oz pur e alcohol) Comments Unknown Sex and Gender Information Value Date Recorded Sex Assigned at Not on file 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 Gender Identity Not on file Sexual Orientation Not on file Last Filed Vital Signs Vital Sign Reading Time Taken Comments Blood Pressure 136/74 10/21/2016 9:40 AM CDT Pulse 72 10/21/2016 9:40 AM CDT Temperature - - Respiratory Rate - - Oxygen Saturation 99% 10/21/2016 9:40 AM CDT Inhaled Oxygen Concentration - - Weight 74.4 kg (164 lb) 10/21/2016 9:40 AM CDT Height 172.7 cm (5' 8 ) 10/21/2016 9:40 AM CDT Body Mass Index 24.94 10/21/2016 9:40 AM CDT Plan of Treatment Not on file Insurance Care Teams Dean Of Student Services Relationship Specialty Start Date End Date Himanshu Quinn MD PCP - General Internal Medicine 10/21/16
--- OUTSIDE RECORDS SUMMARY | 2024-06-26 14:07 | XMS_ITS | Clinical Summary ---
Author Organization [facility] [address] Address [address] [place] [address] Care Team Providers Care Fax Machine Repairer Name Role Phone Himanshu Quinn MD Primary Care Provider Allergies No known active allergies Medications lisinopril [...] IM (MDV) 12/21/2008 Pneumococcal Polysaccharide PPV23 12/15/2009 Surgical History Surgery Date Site/Laterality Comments APPENDECTOMY Appendectomy TOTAL ABDOMINAL HYSTERECTOMY W/ BILATERAL SALPINGOOPHORECTOMY 1978 Hysterectomy, total abdominal, BSO Medical History Medical History Date Comments Hx Other Medical Iritis Gastroesophageal reflux disease GERD Family History Medical History Relation Name Comments Heart disease Father Relation Name Status Comments Father Mother Social History Tobacco Use Types Packs/Day Years Used Date Smoking Tobacco: Every Day Cigarettes Smokeless Tobacco: Never Alcohol Use Standard Drinks/Week Comments No 0 (1 standard drink = 0.6 oz pur e alcohol) Comments Unknown Sex and Gender Information Value Date Recorded Sex Assigned at Not on file 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
--- OUTSIDE RECORDS SUMMARY | 2024-06-26 14:08 | XMS_ITS | Data Portability ---
[facility] [address] [place] [address] Care Team Providers Care Provisioning Specialist Name Role Phone SAEID QUINN Primary Care Provider Assessment Encounter Date Assessment Date Assessment LastModified by Organization Details LastModified Time 05/27/2023 05/27/2023 Continue current therapy follow-up 3 months [email or web address] Not available 06/01/2023 15:07:25 08/26/2023 08/26/2023 continue current therapy all questions answered about diagnosis and assessment and plan we will follow up in 4 months. [email or web address] Not available 08/26/2023 21:31:02 11/25/2023 11/25/2023 blood work has been ordered advised to stay up-to-date on flu COVID and RSV as well as pneumonia shots she will see me in 3 months continue current therapy [email or web address] Not available 12/07/2023 15:15:46 05/14/2024 05/14/2024 COPD continue wi th inhalers atrial fibrillation she was anticoagulated and is in atrial fibrillation currently rhinitis montelukast GERD omeprazole cop winder albuterol and Trelegy she did try to take the Chantix it did not work well for her hypertension felodipine metoprolol hyperuricemia allopurinol blood work ordered she is not interested in pharmacotherapy to stop smoking see me in 3 months [email or web address] Not available 05/15/2024 14:14:21 Plan of Treatment Reminders Order Date Submit Date Provider Last Modified By Organization Details Last Modified Time Details Appointments ANY 15 2024 01:30P M Saeid Quinn MD Not available Not available Not available Lab CBC w/ auto diff 2024 025 [facility], [address], [place], [address], 05/15/2024 08:25:01 CMP, serum or plasma 2024 025 [facility], [address], [place], [address], 05/15/2024 08:25:00 lipid panel, serum 2024 025 [facility], [address], [place], [address], 05/15/2024 08:24:59 uric acid, serum or plasma 2023 024 [facility], [address], [place], [address], 11/26/2023 08:31:18 CBC w/ auto diff 2023 024 [facility], [address], [place], [address], 11/26/2023 08:31:19 CMP, serum or plasma 2023 024 [facility], [address], [place], [address], 11/26/2023 08:31:18 lipid panel, serum 2023 024 [facility], [address], [place], [address], 11/26/2023 08:31:17 Referral None recorded . Procedures None recorded . Surgeries None recorded . Imaging None recorded . Medication Orders None recorded . Patient TargetsNo targets recorded. Patient Instructions Encounter Date Encounter Id Patient Instructions Last Modified By Organization Details Last Modified Time 05/14/2024 [id number] A healthy lifestyle: care instructions [email or web address] Not available 05/14/2024 17:58:26 Reason for Referral None Reported. Results Created Date Observation Date Name Description Value Unit Range Abnormal Flag Note LastModifiedBy Organization Detail LastModifiedTime 04/30/19 24 05/01/2023 LIPID PANEL cholesterol, total 119 mg/dL 100-19 9 Not Available [facility] ([facility]) [address], [address], 05/01/2023 08:27:41 04/30/19 24 05/01/2023 LIPID PANEL triglyceride s 47 mg/dL 0-149 Not Available [facility] ([facility]) [address] [facility] [place], [address], 05/01/2023 08:27:41 04/30/19 24 05/01/2023 LIPID PANEL HDL cholesterol 36 mg/dL >39 below low normal Not Available [facility] ([facility]) [address] [facility] [place], [address], 05/01/2023 08:27:41 04/30/19 24 05/01/2023 LIPID PANEL VLDL cholesterol yonny 11 mg/dL 5-40 Not Available [facility] ([facility]) [address] [facility] [place], [address], 05/01/2023 08:27:41 04/30/19 24 05/01/2023 LIPID PANEL LDL chol calc ([facility]) 72 mg/dL 0-99 Not Available [facility] ([facility]) [address] [facility] [place], [address], 05/01/2023 08:27:41 04/30/19 24 05/01/2023 COMP. METAB OLIC PANEL (14) glucose 181 mg/dL 70-99 above high normal Not Available [facility] ([facility]) [address] [facility] [place], [address], 05/01/2023 08:27:41 04/30/19 24 05/01/2023 COMP. METAB OLIC PANEL (14) BUN 12 mg/dL 8-27 Not Available [facility] ([facility]) [address] [place], [address], 05/01/2023 08:27:41 04/30/19 24 05/01/2023 COMP. METAB OLIC PANEL (14) creatinine 0.82 mg/dL 0.57-1 .00 Not Available [facility] ([facility]) [address] [place], [address], 05/01/2023 08:27:41 04/30/19 24 05/01/2023 COMP. METAB OLIC PANEL (14) eGFR 73 mL/mi n/1.7 3 >59 Not Available [facility] ([facility]) [address] [place], [address], 05/01/2023 08:27:41 04/30/19 24 05/01/2023 COMP. METAB OLIC PANEL (14) BUN/creatini ne ratio 15 12-28 Not Available [facility] ([facility]) [address] [place], [address], 05/01/2023 08:27:41 04/30/19 24 05/01/2023 COMP. METAB OLIC PANEL (14) sodium 141 mmol/ L 134-14 4 Not Available [facility] ([facility]) [address] [place], [address], 05/01/2023 08:27:41 04/30/19 24 05/01/2023 COMP. METAB OLIC PANEL (14) potassium 4.2 mmol/ L 3.5-5. 2 Not Available [facility] ([facility]) [address] [facility], [address], 05/01/2023 08:27:41 04/30/19 24 05/01/2023 COMP. METAB OLIC PANEL (14) chloride 98 mmol/ L 96-106 Not Available [facility] ([facility]) [address] [facility], [address], 05/01/2023 08:27:41 04/30/19 24 05/01/2023 COMP. METAB OLIC PANEL (14) carbon dioxide, total 28 mmol/ L 20-29 Not Available [facility] ([facility]) [address] [place], [address], 05/01/2023 08:27:41 04/30/19 24 05/01/2023 COMP. METAB OLIC PANEL (14) calcium 9.5 mg/dL 8.7-10 .3 Not Available [facility] ([facility]) [address] [place], [address], 05/01/2023 08:27:41 04/30/19 24 05/01/2023 COMP. METAB OLIC PANEL (14) protein, total 7.8 g/dL 6.0-8. 5 Not Available [facility] ([facility]) [address] [place], [address], 05/01/2023 08:27:41 04/30/19 24 05/01/2023 COMP. METAB OLIC PANEL (14) albumin 3.4 g/dL 3.8-4. 8 below low normal Not Available [facility] ([facility]) [address] [facility], [address], 05/01/2023 08:27:41 04/30/19 24 05/01/2023 COMP. METAB OLIC PANEL (14) globulin, total 4.4 g/dL 1.5-4. 5 Not Available [facility] ([facility]) [address] [place], [address], 05/01/2023 08:27:41 04/30/19 24 05/01/2023 COMP. METAB OLIC PANEL (14) A/G ratio 0.8 1.2-2. 2 below low normal Not Available [facility] ([facility]) [address] [facility], [address], 05/01/2023 08:27:41 04/30/19 24 05/01/2023 COMP. METAB OLIC PANEL (14) bilirubin, total 0.5 mg/dL 0.0-1. 2 Not Available [facility] ([facility]) [address] [facility] [place], [address], 05/01/2023 08:27:41 04/30/19 24 05/01/2023 COMP. METAB OLIC PANEL (14) alkaline phosphatase 101 IU/L 44-121 Not Available [facility] ([facility]) [address] [facility] [place], [address], 05/01/2023 08:27:41 04/30/19 24 05/01/2023 COMP. METAB OLIC PANEL (14) AST (SGOT) 18 IU/L 0-40 Not Available [facility] ([facility]) [address] [facility] [place], [address], 05/01/2023 08:27:41 04/30/19 24 05/01/2023 COMP. METAB OLIC PANEL (14) ALT (SGPT) 12 IU/L 0-32 Not Available [facility] ([facility]) [address] [facility] [place], [address], 05/01/2023 08:27:41 04/30/19 24 05/01/2023 MAGNE SIUM magnesium 1.1 mg/dL 1.6-2. 3 below low normal Not Available [facility] ([facility]) [address] [place], [address], 05/01/2023 08:27:42 04/30/19 24 05/01/2023 CBC WITH DIFFE RENTI AL/PL ATELE T WBC 11.0 x10e3 /uL 3.4-10 .8 above high normal Not Available [facility] ([facility]) [address] [facility] [place], [address], 05/01/2023 08:27:43 04/30/19 24 05/01/2023 CBC WITH DIFFE RENTI AL/PL ATELE T RBC 3.87 x10e6 /uL 3.77-5 .28 Not Available [facility] ([facility]) [address] [facility], [place], [address], 05/01/2023 08:27:43 04/30/19 24 05/01/2023 CBC WITH DIFFE RENTI AL/PL ATELE T hemoglobin 11.8 g/dL 11.1-1 5.9 Not Available [facility] ([facility]) [address] [place], [address], 05/01/2023 08:27:43 04/30/19 24 05/01/2023 CBC WITH DIFFE RENTI AL/PL ATELE T hematocrit 35.4 % 34.0-4 6.6 Not Available [facility] ([facility]) [address] [place], [address], 05/01/2023 08:27:43 04/30/19 24 05/01/2023 CBC WITH DIFFE RENTI AL/PL ATELE T MCV 92 fL 79-97 Not Available [facility] ([facility]) [address] [place], [address], 05/01/2023 08:27:43 04/30/19 24 05/01/2023 CBC WITH DIFFE RENTI AL/PL ATELE T MCH 30.5 pg 26.6-3 3.0 Not Available [facility] ([facility]) [address] [place], [address], 05/01/2023 08:27:43 04/30/19 24 05/01/2023 CBC WITH DIFFE RENTI AL/PL ATELE T MCHC 33.3 g/dL 31.5-3 5.7 Not Available [facility] ([facility]) [address] [place], [address], 05/01/2023 08:27:43 04/30/19 24 05/01/2023 CBC WITH DIFFE RENTI AL/PL ATELE T RDW 13.4 % 11.7-1 5.4 Not Available [facility] ([facility]) [address] [facility], [place], [address], 05/01/2023 08:27:43 04/30/19 24 05/01/2023 CBC WITH DIFFE RENTI AL/PL ATELE T platelets 386 x10e3 /uL 150-45 0 Not Available [facility] ([facility]) [address] [facility] [address], [place], [address], 05/01/2023 08:27:43 04/30/19 24 05/01/2023 CBC WITH DIFFE RENTI AL/PL ATELE T neutrophils 74 % notest ab. Not Available [facility] ([facility]) [address] [facility] [address], [place], [address], 05/01/2023 08:27:43 04/30/19 24 05/01/2023 CBC WITH DIFFE RENTI AL/PL ATELE T lymphs 18 % notest ab. Not Available [facility] ([facility]) [address] [facility] [address], [place], [address], 05/01/2023 08:27:43 04/30/19 24 05/01/2023 CBC WITH DIFFE RENTI AL/PL ATELE T monocytes 6 % notest ab. Not Available [facility] ([facility]) [address] [facility], [place], [address], 05/01/2023 08:27:43 04/30/19 24 05/01/2023 CBC WITH DIFFE RENTI AL/PL ATELE T eos 1 % notest ab. Not Available [facility] ([facility]) [address] [facility] [address], [place], [address], 05/01/2023 08:27:43 04/30/19 24 05/01/2023 CBC WITH DIFFE RENTI AL/PL ATELE T basos 1 % notest ab. Not Available [facility] ([facility]) [address] [facility], [place], [address], 05/01/2023 08:27:43 04/30/19 24 05/01/2023 CBC WITH DIFFE RENTI AL/PL ATELE T neutrophils (absolute) 8.1 x10e3 /uL 1.4-7. 0 above high normal Not Available [facility] ([facility]) [address] [facility], [place], [address], 05/01/2023 08:27:43 04/30/19 24 05/01/2023 CBC WITH DIFFE RENTI AL/PL ATELE T lymphs (absolute) 2.0 x10e3 /uL 0.7-3. 1 Not Available [facility] ([facility]) [address] [facility], [place], [address], 05/01/2023 08:27:43 04/30/19 24 05/01/2023 CBC WITH DIFFE RENTI AL/PL ATELE T monocytes(ab solute) 0.7 x10e3 /uL 0.1-0. 9 Not Available [facility] ([facility]) [address] [facility] [address], [place], [address], 05/01/2023 08:27:43 04/30/19 24 05/01/2023 CBC WITH DIFFE RENTI AL/PL ATELE T eos (absolute) 0.1 x10e3 /uL 0.0-0. 4 Not Available [facility] ([facility]) [address] [place], [address], 05/01/2023 08:27:43 04/30/19 24 05/01/2023 CBC WITH DIFFE RENTI AL/PL ATELE T baso (absolute) 0.1 x10e3 /uL 0.0-0. 2 Not Available [facility] ([facility]) [address] [place], [address], 05/01/2023 08:27:43 04/30/19 24 05/01/2023 CBC WITH DIFFE RENTI AL/PL ATELE T immature granulocytes 0 % notest ab. Not Available [facility] ([facility]) [address] [facility] [address], [place], [address], 05/01/2023 08:27:43 04/30/19 24 05/01/2023 CBC WITH DIFFE RENTI AL/PL ATELE T immature grans (abs) 0.0 x10e3 /uL 0.0-0. 1 Not Available [facility] ([facility]) [address] [facility] [address], [place], [address], 05/01/2023 08:27:43 11/25/1911/26/2023 LIPID PANEL cholesterol, total 115 mg/dL 100-19 9 Not Available [facility] ([facility]) [address] [facility], [place], [address], 11/26/2023 08:31:17 11/25/19 24 11/26/2023 LIPID PANEL triglyceride s 41 mg/dL 0-149 Not Available [facility] ([facility]) [address] [place], [address], 11/26/2023 08:31:17 11/25/19 24 11/26/2023 LIPID PANEL HDL cholesterol 55 mg/dL >39 Not Available [facility] ([facility]) [address] [facility] [address], [place], [address], 11/26/2023 08:31:17 11/25/1911/26/2023 LIPID PANEL VLDL cholesterol yonny 11 mg/dL 5-40 Not Available [facility] ([facility]) [address] [place], [address], 11/26/2023 08:31:17 11/25/1911/26/2023 LIPID PANEL LDL chol calc ([facility]) 49 mg/dL 0-99 Not Available [facility] ([facility]) [address] [place], [address], 11/26/2023 08:31:17 11/25/19 24 11/26/2023 COMP. METAB OLIC PANEL (14) glucose 136 mg/dL 70-99 above high normal Not Available [facility] ([facility]) [address] [facility], [place], [address], 11/26/2023 08:31:17 11/25/19 24 11/26/2023 COMP. METAB OLIC PANEL (14) BUN 11 mg/dL 8-27 Not Available [facility] ([facility]) [address] [place], [address], 11/26/2023 08:31:17 11/25/19 24 11/26/2023 COMP. METAB OLIC PANEL (14) creatinine 0.85 mg/dL 0.57-1 .00 Not Available [facility] ([facility]) [address] [place], [address], 11/26/2023 08:31:17 11/25/19 24 11/26/2023 COMP. METAB OLIC PANEL (14) eGFR 70 mL/mi n/1.7 3 >59 Not Available [facility] ([facility]) [address] [place], [address], 11/26/2023 08:31:17 11/25/19 24 11/26/2023 COMP. METAB OLIC PANEL (14) BUN/creatini ne ratio 13 12-28 Not Available [facility] ([facility]) [address] [place], [address], 11/26/2023 08:31:17 11/25/19 24 11/26/2023 COMP. METAB OLIC PANEL (14) sodium 140 mmol/ L 134-14 4 Not Available [facility] ([facility]) [address] [place], [address], 11/26/2023 08:31:17 11/25/19 24 11/26/2023 COMP. METAB OLIC PANEL (14) potassium 3.9 mmol/ L 3.5-5. 2 Not Available [facility] ([facility]) [address] [facility] [place], [address], 11/26/2023 08:31:17 11/25/19 24 11/26/2023 COMP. METAB OLIC PANEL (14) chloride 97 mmol/ L 96-106 Not Available [facility] ([facility]) [address] [facility] [place], [address], 11/26/2023 08:31:17 11/25/19 24 11/26/2023 COMP. METAB OLIC PANEL (14) carbon dioxide, total 28 mmol/ L 20-29 Not Available [facility] ([facility]) [address] [facility], [place], [address], 11/26/2023 08:31:17 11/25/19 24 11/26/2023 COMP. METAB OLIC PANEL (14) calcium 9.0 mg/dL 8.7-10 .3 Not Available [facility] ([facility]) [address] [facility] [place], [address], 11/26/2023 08:31:17 11/25/19 24 11/26/2023 COMP. METAB OLIC PANEL (14) protein, total 7.9 g/dL 6.0-8. 5 Not Available [facility] ([facility]) [address] [facility], [place], [address], 11/26/2023 08:31:17 11/25/19 24 11/26/2023 COMP. METAB OLIC PANEL (14) albumin 3.5 g/dL 3.8-4. 8 below low normal Not Available [facility] ([facility]) [address] [facility] [place], [address], 11/26/2023 08:31:17 11/25/19 24 11/26/2023 COMP. METAB OLIC PANEL (14) globulin, total 4.4 g/dL 1.5-4. 5 Not Available [facility] ([facility]) [address] [facility], [place], [address], 11/26/2023 08:31:17 11/25/19 24 11/26/2023 COMP. METAB OLIC PANEL (14) bilirubin, total 0.5 mg/dL 0.0-1. 2 Not Available [facility] ([facility]) [address] [facility], [place], [address], 11/26/2023 08:31:17 11/25/19 24 11/26/2023 COMP. METAB OLIC PANEL (14) alkaline phosphatase 93 IU/L 44-121 Not Available [facility] ([facility]) [address] [facility] [address], [place], [address], 11/26/2023 08:31:17 11/25/19 24 11/26/2023 COMP. METAB OLIC PANEL (14) AST (SGOT) 23 IU/L 0-40 Not Available [facility] ([facility]) [address] [facility], [place], [address], 11/26/2023 08:31:17 11/25/1911/26/2023 COMP. METAB OLIC PANEL (14) ALT (SGPT) 11 IU/L 0-32 Not Available [facility] ([facility]) [address] [facility], [place], [address], 11/26/2023 08:31:17 11/25/19 24 11/26/2023 URIC ACID uric acid 5.6 mg/dL 3.1-7. 9 Thera peuti c elige t for gout patie nts: <6.0 Not Available [facility] ([facility]) [address] [facility], [place], [address], 11/26/2023 08:31:18 11/25/19 24 11/26/2023 CBC WITH DIFFE RENTI AL/PL ATELE T WBC 8.5 x10e3 /uL 3.4-10 .8 Not Available [facility] ([facility]) [address] [facility], [place], [address], 11/26/2023 08:31:19 11/25/19 24 11/26/2023 CBC WITH DIFFE RENTI AL/PL ATELE T RBC 4.06 x10e6 /uL 3.77-5 .28 Not Available [facility] ([facility]) [address] [facility], [place], [address], 11/26/2023 08:31:19 11/25/19 24 11/26/2023 CBC WITH DIFFE RENTI AL/PL ATELE T hemoglobin 12.3 g/dL 11.1-1 5.9 Not Available [facility] ([facility]) [address] [facility], [place], [address], 11/26/2023 08:31:19 11/25/19 24 11/26/2023 CBC WITH DIFFE RENTI AL/PL ATELE T hematocrit 37.8 % 34.0-4 6.6 Not Available [facility] ([facility]) [address] [facility], [place], [address], 11/26/2023 08:31:19 11/25/19 24 11/26/2023 CBC WITH DIFFE RENTI AL/PL ATELE T MCV 93 fL 79-97 Not Available [facility] ([facility]) [address] [facility], [place], [address], 11/26/2023 08:31:19 11/25/19 24 11/26/2023 CBC WITH DIFFE RENTI AL/PL ATELE T MCH 30.3 pg 26.6-3 3.0 Not Available [facility] ([facility]) [address] [facility], [place], [address], 11/26/2023 08:31:19 11/25/19 24 11/26/2023 CBC WITH DIFFE RENTI AL/PL ATELE T MCHC 32.5 g/dL 31.5-3 5.7 Not Available [facility] ([facility]) [address] [facility], [place], [address], 11/26/2023 08:31:19 11/25/19 24 11/26/2023 CBC WITH DIFFE RENTI AL/PL ATELE T RDW 13.2 % 11.7-1 5.4 Not Available [facility] ([facility]) [address] [facility], [place], [address], 11/26/2023 08:31:19 11/25/19 24 11/26/2023 CBC WITH DIFFE RENTI AL/PL ATELE T platelets 224 x10e3 /uL 150-45 0 Not Available [facility] ([facility]) [address] [facility], [place], [address], 11/26/2023 08:31:19 11/25/19 24 11/26/2023 CBC WITH DIFFE RENTI AL/PL ATELE T neutrophils 70 % notest ab. Not Available [facility] ([facility]) [address] [facility], [place], [address], 11/26/2023 08:31:19 11/25/19 24 11/26/2023 CBC WITH DIFFE RENTI AL/PL ATELE T lymphs 20 % notest ab. Not Available [facility] ([facility]) [address] [facility], [place], [address], 11/26/2023 08:31:19 11/25/19 24 11/26/2023 CBC WITH DIFFE RENTI AL/PL ATELE T monocytes 8 % notest ab. Not Available [facility] ([facility]) [address] [facility], [place], [address], 11/26/2023 08:31:19 11/25/19 24 11/26/2023 CBC WITH DIFFE RENTI AL/PL ATELE T eos 1 % notest ab. Not Available [facility] ([facility]) [address] [facility], [place], [address], 11/26/2023 08:31:19 11/25/19 24 11/26/2023 CBC WITH DIFFE RENTI AL/PL ATELE T basos 1 % notest ab. Not Available [facility] ([facility]) [address] [facility], [place], [address], 11/26/2023 08:31:19 11/25/19 24 11/26/2023 CBC WITH DIFFE RENTI AL/PL ATELE T neutrophils (absolute) 6.0 x10e3 /uL 1.4-7. 0 Not Available [facility] ([facility]) [address] [facility], [place], [address], 11/26/2023 08:31:19 11/25/19 24 11/26/2023 CBC WITH DIFFE RENTI AL/PL ATELE T lymphs (absolute) 1.7 x10e3 /uL 0.7-3. 1 Not Available [facility] ([facility]) [address] [facility], [place], [address], 11/26/2023 08:31:19 11/25/19 24 11/26/2023 CBC WITH DIFFE RENTI AL/PL ATELE T monocytes(ab solute) 0.7 x10e3 /uL 0.1-0. 9 Not Available [facility] ([facility]) [address] [facility], [place], [address], 11/26/2023 08:31:19 11/25/19 24 11/26/2023 CBC WITH DIFFE RENTI AL/PL ATELE T eos (absolute) 0.1 x10e3 /uL 0.0-0. 4 Not Available [facility] ([facility]) [address] [facility], [place], [address], 11/26/2023 08:31:19 11/25/19 24 11/26/2023 CBC WITH DIFFE RENTI AL/PL ATELE T baso (absolute) 0.0 x10e3 /uL 0.0-0. 2 Not Available [facility] ([facility]) [address] [facility], [place], [address], 11/26/2023 08:31:19 11/25/1911/26/2023 CBC WITH DIFFE RENTI AL/PL ATELE T immature granulocytes 0 % notest ab. Not Available [facility] ([facility]) [address] [facility], [place], [address], 11/26/2023 08:31:19 11/25/19 24 11/26/2023 CBC WITH DIFFE RENTI AL/PL ATELE T immature grans (abs) 0.0 x10e3 /uL 0.0-0. 1 Not Available [facility] ([facility]) [address] [facility], [place], [address], 11/26/2023 08:31:19 05/15/19 25 05/15/2024 LIPID PANEL cholesterol, total 130 mg/dL 100-19 9 Not Available [facility] ([facility]) [address] [place], [address], 05/15/2024 08:24:59 05/15/19 25 05/15/2024 LIPID PANEL triglyceride s 38 mg/dL 0-149 Not Available [facility] ([facility]) [address] [place], [address], 05/15/2024 08:24:59 05/15/19 25 05/15/2024 LIPID PANEL HDL cholesterol 60 mg/dL >39 Not Available [facility] ([facility]) [address] [place], [address], 05/15/2024 08:24:59 05/15/19 25 05/15/2024 LIPID PANEL VLDL cholesterol yonny 10 mg/dL 5-40 Not Available [facility] ([facility]) [address] [place], [address], 05/15/2024 08:24:59 05/15/19 25 05/15/2024 LIPID PANEL LDL chol calc ([facility]) 60 mg/dL 0-99 Not Available [facility] ([facility]) [address] [place], [address], 05/15/2024 08:24:59 05/15/19 25 05/15/2024 COMP. METAB OLIC PANEL (14) glucose 111 mg/dL 70-99 above high normal Not Available [facility] ([facility]) [address] [place], [address], 05/15/2024 08:25:00 05/15/19 25 05/15/2024 COMP. METAB OLIC PANEL (14) BUN 12 mg/dL 8-27 Not Available [facility] ([facility]) [address] [place], [address], 05/15/2024 08:25:00 05/15/19 25 05/15/2024 COMP. METAB OLIC PANEL (14) creatinine 0.81 mg/dL 0.57-1 .00 Not Available [facility] ([facility]) [address] [place], [address], 05/15/2024 08:25:00 05/15/19 25 05/15/2024 COMP. METAB OLIC PANEL (14) eGFR 74 mL/mi n/1.7 3 >59 Not Available [facility] ([facility]) [address] [place], [address], 05/15/2024 08:25:00 05/15/19 25 05/15/2024 COMP. METAB OLIC PANEL (14) BUN/creatini ne ratio 15 12-28 Not Available [facility] ([facility]) [address] [place], [address], 05/15/2024 08:25:00 05/15/19 25 05/15/2024 COMP. METAB OLIC PANEL (14) sodium 141 mmol/ L 134-14 4 Not Available [facility] ([facility]) [address] [place], [address], 05/15/2024 08:25:00 05/15/19 25 05/15/2024 COMP. METAB OLIC PANEL (14) potassium 4.1 mmol/ L 3.5-5. 2 Not Available [facility] ([facility]) [address] [place], [address], 05/15/2024 08:25:00 05/15/19 25 05/15/2024 COMP. METAB OLIC PANEL (14) chloride 100 mmol/ L 96-106 Not Available [facility] ([facility]) [address] [place], [address], 05/15/2024 08:25:00 05/15/19 25 05/15/2024 COMP. METAB OLIC PANEL (14) carbon dioxide, total 28 mmol/ L 20-29 Not Available [facility] ([facility]) [address] [facility] [place], [address], 05/15/2024 08:25:00 05/15/19 25 05/15/2024 COMP. METAB OLIC PANEL (14) calcium 9.1 mg/dL 8.7-10 .3 Not Available [facility] ([facility]) [address] [facility] [place], [address], 05/15/2024 08:25:00 05/15/19 25 05/15/2024 COMP. METAB OLIC PANEL (14) protein, total 8.2 g/dL 6.0-8. 5 Not Available [facility] ([facility]) [address] [facility] [place], [address], 05/15/2024 08:25:00 05/15/19 25 05/15/2024 COMP. METAB OLIC PANEL (14) albumin 3.8 g/dL 3.8-4. 8 Not Available [facility] ([facility]) [address] [facility] [place], [address], 05/15/2024 08:25:00 05/15/19 25 05/15/2024 COMP. METAB OLIC PANEL (14) globulin, total 4.4 g/dL 1.5-4. 5 Not Available [facility] ([facility]) [address] [facility], [place], [address], 05/15/2024 08:25:00 05/15/19 25 05/15/2024 COMP. METAB OLIC PANEL (14) bilirubin, total 0.5 mg/dL 0.0-1. 2 Not Available [facility] ([facility]) [address] [facility], [place], [address], 05/15/2024 08:25:00 05/15/19 25 05/15/2024 COMP. METAB OLIC PANEL (14) alkaline phosphatase 111 IU/L 44-121 Not Available [facility] ([facility]) [address] [facility], [place], [address], 05/15/2024 08:25:00 05/15/19 25 05/15/2024 COMP. METAB OLIC PANEL (14) AST (SGOT) 24 IU/L 0-40 Not Available [facility] ([facility]) [address] [facility], [place], [address], 05/15/2024 08:25:00 05/15/19 25 05/15/2024 COMP. METAB OLIC PANEL (14) ALT (SGPT) 17 IU/L 0-32 Not Available [facility] ([facility]) [address] [facility], [place], [address], 05/15/2024 08:25:00 05/15/19 25 05/15/2024 CBC WITH DIFFE RENTI AL/PL ATELE T WBC 8.7 x10e3 /uL 3.4-10 .8 Not Available [facility] ([facility]) [address] [place], [address], 05/15/2024 08:25:01 05/15/19 25 05/15/2024 CBC WITH DIFFE RENTI AL/PL ATELE T RBC 4.25 x10e6 /uL 3.77-5 .28 Not Available [facility] ([facility]) [address] [facility], [place], [address], 05/15/2024 08:25:01 05/15/19 25 05/15/2024 CBC WITH DIFFE RENTI AL/PL ATELE T hemoglobin 13.0 g/dL 11.1-1 5.9 Not Available [facility] ([facility]) [address] [place], [address], 05/15/2024 08:25:01 05/15/1905/15/2024 CBC WITH DIFFE RENTI AL/PL ATELE T hematocrit 39.8 % 34.0-4 6.6 Not Available [facility] ([facility]) [address] [facility], [place], [address], 05/15/2024 08:25:01 05/15/1905/15/2024 CBC WITH DIFFE RENTI AL/PL ATELE T MCV 94 fL 79-97 Not Available [facility] ([facility]) [address] [place], [address], 05/15/2024 08:25:01 05/15/19 25 05/15/2024 CBC WITH DIFFE RENTI AL/PL ATELE T MCH 30.6 pg 26.6-3 3.0 Not Available [facility] ([facility]) [address] [place], [address], 05/15/2024 08:25:01 05/15/19 25 05/15/2024 CBC WITH DIFFE RENTI AL/PL ATELE T MCHC 32.7 g/dL 31.5-3 5.7 Not Available [facility] ([facility]) [address] [place], [address], 05/15/2024 08:25:01 05/15/19 25 05/15/2024 CBC WITH DIFFE RENTI AL/PL ATELE T RDW 13.0 % 11.7-1 5.4 Not Available [facility] ([facility]) [address] [facility], [place], [address], 05/15/2024 08:25:01 05/15/19 25 05/15/2024 CBC WITH DIFFE RENTI AL/PL ATELE T platelets 216 x10e3 /uL 150-45 0 Not Available [facility] ([facility]) [address] [facility], [place], [address], 05/15/2024 08:25:01 05/15/19 25 05/15/2024 CBC WITH DIFFE RENTI AL/PL ATELE T neutrophils 62 % notest ab. Not Available [facility] ([facility]) [address] [facility], [place], [address], 05/15/2024 08:25:01 05/15/19 25 05/15/2024 CBC WITH DIFFE RENTI AL/PL ATELE T lymphs 28 % notest ab. Not Available [facility] ([facility]) [address] [facility], [place], [address], 05/15/2024 08:25:01 05/15/19 25 05/15/2024 CBC WITH DIFFE RENTI AL/PL ATELE T monocytes 8 % notest ab. Not Available [facility] ([facility]) [address] [facility], [place], [address], 05/15/2024 08:25:01 05/15/19 25 05/15/2024 CBC WITH DIFFE RENTI AL/PL ATELE T eos 1 % notest ab. Not Available [facility] ([facility]) [address] [facility], [place], [address], 05/15/2024 08:25:01 05/15/19 25 05/15/2024 CBC WITH DIFFE RENTI AL/PL ATELE T basos 1 % notest ab. Not Available [facility] ([facility]) [address] [facility], [place], [address], 05/15/2024 08:25:01 05/15/19 25 05/15/2024 CBC WITH DIFFE RENTI AL/PL ATELE T neutrophils (absolute) 5.4 x10e3 /uL 1.4-7. 0 Not Available [facility] ([facility]) [address] [facility], [place], [address], 05/15/2024 08:25:01 05/15/19 25 05/15/2024 CBC WITH DIFFE RENTI AL/PL ATELE T lymphs (absolute) 2.4 x10e3 /uL 0.7-3. 1 Not Available [facility] ([facility]) [address] [facility], [place], [address], 05/15/2024 08:25:01 05/15/19 25 05/15/2024 CBC WITH DIFFE RENTI AL/PL ATELE T monocytes(ab solute) 0.7 x10e3 /uL 0.1-0. 9 Not Available [facility] ([facility]) [address] [place], [address], 05/15/2024 08:25:01 05/15/19 25 05/15/2024 CBC WITH DIFFE RENTI AL/PL ATELE T eos (absolute) 0.1 x10e3 /uL 0.0-0. 4 Not Available [facility] ([facility]) [address] [place], [address], 05/15/2024 08:25:01 05/15/19 25 05/15/2024 CBC WITH DIFFE RENTI AL/PL ATELE T baso (absolute) 0.1 x10e3 /uL 0.0-0. 2 Not Available [facility] ([facility]) [address] [place], [address], 05/15/2024 08:25:01 05/15/19 25 05/15/2024 CBC WITH DIFFE RENTI AL/PL ATELE T immature granulocytes 0 % notest ab. Not Available [facility] ([facility]) [address] [facility], [place], [address], 05/15/2024 08:25:01 05/15/19 25 05/15/2024 CBC WITH DIFFE RENTI AL/PL ATELE T immature grans (abs) 0.0 x10e3 /uL 0.0-0. 1 Not Available [facility] ([facility]) [address] [facility], [place], [address], 05/15/2024 08:25:01 06/26/19 25 06/25/2024 XR, cervi yonny spine No observ ation record ed. [address], [place], [address], 06/25/2024 17:18:18 06/27/19 25 06/25/2024 XR, cervi yonny spine No observ ation record ed. [address], [place], [address], 06/26/2024 09:38:57 Result Notes None recorded. Problems Name Problem SNOMED Code Status Onset Date Resolution Date Notes Provider Name and Address Organization Details Recorded Time Essential hypertension 67558982 Active 2023 Saeid Quinn MD Attn: Sada cooley,[address] [place], [address], [place] - [facility] 4 15:07:02 Atrial fibrillation 27147924 Active 2023 Saeid Quinn MD Attn: Sada cooley,[address] [place], [address], [place] [facility] 4 15:07:03 Pulmonary Mycobacterium avium complex infection 886048922 Active 2023 Saeid Quinn MD Attn: Sada cooley,[address] [place], [address], [place] [facility] 4 15:07:04 Gastroesophage al reflux disease without esophagitis 023714381 Active 2023 Saeid Quinn MD Attn: Sada cooley,[address] [facility], [place], [address], [facility] - [facility] 4 15:07:08 Chronic rhinitis 71335620 Active 2023 Saeid Quinn MD Attn: Accountangella g,[address] [facility], [place], [address], [facility] - [facility] 4 15:07:09 Chronic obstructive pulmonary disease 70858554 Active 2023 Saeid Quinn MD Attn: Sada cooley,[address] [facility], [place], [address], [facility] - [facility] 4 15:07:10 Neck pain 25093612 Active 2024 Kristy Liriano MA [facility], [place] - [facility] 5 11:31:58 Problem Notes None recorded. Procedures Surgical History Date Name Laterality Status Provider Name and Address Organization Details Recorded Time Eye Surgery completed Olegario Hayward MA [facility] 04/30/2023 10:46:19 Total hysterectomy completed Olegario Hayward MA [facility] 04/30/2023 10:46:26 Imaging Results Imaging Date Name Status LastModified by [facility] Details LastModified Time 06/25/2024 XR, cervical spine active [address] [place] [address], [address], 06/25/2024 17:18:18 06/25/2024 XR, cervical spine active [address] [place] [address], [address], 06/26/2024 09:38:57 Procedure Notes None recorded. Medical Equipment None Reported. Allergies No known drug allergies Medications Name Sig Start Date Stop Date Status Note LastModified by Organization Details LastModified Time cyclobenz aprine 10 mg tablet Take 0.5 tablets twice a day by oral route as needed, for neck spasms. 2024 active Not Available Not Available Not Avai lable furosemid e 40 mg tablet TAKE 1 TABLET BY MOUTH EVERY DAY 04/29 completed Not Available Not Available Not Available metformin 500 mg tablet TAKE 1 TABLET BY MOUTH EVERY DAY 04/29 completed Not Available Not Available Not Available benzonata te 200 mg capsule TAKE 1 CAPSULE BY MOUTH THREE TIMES DAILY FOR 10 DAYS 05/14 completed Not Available Not Available Not Available metoprolo l succinate ER 50 mg tablet,ex tended release 24 hr TAKE 1 TABLET BY MOUTH DAILY AT NIGHT active Not Available Not Available No t Available prednison e 20 mg tablet TAKE 2 TABLETS BY MOUTH EVERY DAY 04/29 completed Not Available Not Available Not Available allopurin ol 100 mg tablet TAKE 1 TABLET BY MOUTH DAILY active Patient stop taking Not Available Not Available Not Available magnesium oxide 400 mg (241.3 mg magnesium ) tablet TAKE 1 TABLET BY MOUTH TWICE DAILY active Not Available Not Available No t Available doxycycli ne monohydra te 100 mg capsule TAKE 1 CAPSULE BY MOUTH TWICE DAILY FOR 7 DAYS 05/14 completed Not Available Not Available Not Available warfarin 5 mg tablet TAKE 1 TABLET BY MOUTH EVERY DAY. EXCEPT ON FRIDAY TAKE A HALF OF A TABLET TO. MAKE 2.5 MG 04/29 completed Not Available Not Available Not Available omeprazol e 20 mg capsule,d elayed release TAKE 1 CAPSULE BY MOUTH EVERY DAY active Not Available Not Available No t Available felodipin e ER 10 mg tablet,ex tended release 24 hr TAKE 1 TABLET BY MOUTH EVERY DAY 2024 active Not Available Not Available Not Avai lable mont[place] st 10 mg tablet TAKE 1 TABLET BY MOUTH EVERY DAY active Not Available Not Available No t Available furosemid e 20 mg tablet TAKE 1 TABLET BY MOUTH EVERY DAY 04/29 completed Not Available Not Available Not Available mirtazapi ne 15 mg tablet TAKE 1 TABLET BY MOUTH EVERY DAY 04/29 completed Not Available Not Available Not Available levofloxa wilma 750 mg tablet TAKE 1 TABLET BY MOUTH EVERY DAY 04/29 completed Not Available Not Available Not Available albuterol sulfate HFA 90 mcg/actua tion aerosol inhaler INHALE 1 PUFF BY MOUTH FOUR TIMES DAILY DIRECTED 05/14 completed Not Available Not Available Not Available varenicli ne tartrate 0.5 mg (11)-1 mg (42) tablets in a dose pack FOLLOW PACKAGE DIRECTIO NS 05/14 completed Not Available Not Available Not Available Eliquis 5 mg tablet TAKE 1 TABLET BY MOUTH TWICE DAILY active this is managed by Cardiol[facility] gy Not Available Not Available Not Available Eliquis 2.5 mg tablet TAKE 1 TABLET BY MOUTH TWICE DAILY active Not Available Not Available No t Available Trelegy Ellipta 100 mcg-62.5 mcg-25 mcg powder for inhalatio n INHALE 1 PUFF BY MOUTH EVERY DAY active Not Available Not Available No t Available Vitals Date Recorded Body height Body mass index (BMI) Body weight Oxygen saturation Oxygen saturation in Arterial blood by Pulse oximetry Heart rate Systolic blood pressure Diastolic blood pressure Provider Name and Address Organization Details Last Updated DateTime 4 170.18 cm 22.4 kg/m2 48015.7 1 g 95 % 95 % 99 /min 130 mm[Hg] 86 mm[Hg] Olegario Hayward MA [facility] 4 12:04:31 Date Recorded Body height Body mass index (BMI) Body weight Heart rate Oxygen saturation Oxygen saturation in Arterial blood by Pulse oximetry Systolic blood pressure Diastolic blood pressure Provider Name and Address Organization Details Last Updated DateTime 4 170.18 cm 22.4 kg/m2 17665.9 9 g 67 /min 99 % 99 % 124 mm[Hg] 82 mm[Hg] Olegario Hayward MA [facility] 4 11:23:07 Date Recorded Body height Body mass index (BMI) Body weight Respiratory rate Oxygen saturation Oxygen saturation in Arterial blood by Pulse oximetry Heart rate Systolic blood pressure Diastolic blood pressure Provider Name and Address Organization Details Last Updated DateTime 4 170.18 cm 21.8 kg/m2 33006.4 2 g 18 /min 97 % 97 % 60 /min 136 mm[Hg] 74 mm[Hg] Tracy Hayward MA [facility] 4 11:35:08 Date Recorded Body height Body mass index (BMI) Body weight Heart rate Oxygen saturation Oxygen saturation in Arterial blood by Pulse oximetry Systolic blood pressure Diastolic blood pressure Provider Name and Address Organization Details Last Updated DateTime 5 170.18 cm 22.3 kg/m2 82214.8 4 g 69 /min 96 % 96 % 130 mm[Hg] 70 mm[Hg] Vianney Padilla MA [facility] 15:00:07 Date Recorded Body height Body mass index (BMI) Body weight Heart rate Oxygen saturation Oxygen saturation in Arterial blood by Pulse oximetry Systolic blood pressure Diastolic blood pressure Provider Name and Address Organization Details Last Updated DateTime 170.18 cm 21.9 kg/m2 59270.2 1 g 60 /min 96 % 96 % 130 mm[Hg] 80 mm[Hg] Bita Davis MA [facility] 10:42:41 Social History Question Answer Notes LastModified by Organizat ion Details LastModified Time Tobacco Smoking Status Current Some Day Smoker pt says when things get on her nerves she smokes 3-4 cigarettes Tracy Hayward MA [facility] 11/25/2023 11:42:24 What Is Your Level Of Alcohol Consumption? None Information not available 04/30/2023 Are You Blind Or Do You Have Difficulty Seeing? No Information not available 04/30/2023 What Is Your Level Of Caffeine Consumption? Occasional Information not available 04/30/2023 Are You Deaf Or Do You Have Serious Difficulty Hearing? No Information not available 04/30/2023 What Type Of Diet Are You Following? REGULAR Information not available 05/27/2023 Are There Any Guns Present In Your Home? No Information not available 04/30/2023 What Was The Date Of Your Most Recent Tobacco Screening? 06/25/2024 Information not available 06/25/2024 What Is Your Current Pack Years? 10-19packyear s Information not available 04/30/2023 What Is Your Relationship Status? Information not available 04/30/2023 Do You Use Your Seat Belt Or Car Seat Routinely? Yes Information not available 04/30/2023 Do You Have Smoke And Carbon Monoxide Detectors In Your Home? Yes Information not available 04/30/2023 At What Age Did You Start Smoking Tobacco? 15 crevisma Information not available 11/25/2023 Do You Feel Stressed (tense, Restless, Nervous, Or Anxious, Or Unable To Sleep At Night)? [id number] Information not available 04/30/2023 Do You Use Any Illicit Or Recreational Drugs? No Information not available 04/30/2023 Do You Use Sunscreen Routinely? No Information not available 04/30/2023 Has Tobacco Cessation Counseling Been Provided? Yes Information not available 04/30/2023 On What Date Was Tobacco Cessation Counseling Provided? 06/25/2024 Information not available 06/25/2024 Do You Or Have You Ever Used Any Other Forms Of Tobacco Or Nicotine? No Information not available 04/30/2023 Sex: Female Functional Status Question Answer Note LastModified by Organization D etails LastModified Time Are you able to care for yourself? Yes Information n ot available 04/30/2023 What is your exercise level? None Information not available 05/27/2023 Mental Status None recorded. Family History Nothing Reported. Medical History Condition Response Coronary Artery Disease N Other N High Blood Pressure Y Atrial Fibrillation N Kidney or Bladder Problems N Thyroid Problems N GI Problems N Depression N COPD Y Blood Clots N Skin Problems N Anemia N Heart Attack ([place]) N Anxiety Disorder N Diabetes N Muscle, Joint, or Bone Problems N Seizures/Epilepsy N Acid Reflux (GERD) N Cancer N Stroke N Asthma N Allergies N High Cholesterol N Hepatitis N Liver Disease N Headaches N Osteoporosis N Heart Failure N Gynecological History Statement/Question Response If Post Menopausal, Age at Menopause 38 Obstetrics History GPAL:G 2 P 2 0 0 1 Type Value Full Term 2 Living 1 Total 2 Immunizations Vaccine Type Date Status Note Provider Nam e and Address Organization Details Recorded Time Influenza, high-dose, quadrivalent, PF 2 completed Amy C[place], [place] [facility] 07/28/2023 15:50:11 Influenza, high-dose, quadrivalent, PF 3 completed [place] [facility] 07/28/2023 15:50:11 Influenza, high-dose, quadrivalent, PF 0 completed [place] [facility] 07/28/2023 15:50:11 Influenza, high-dose, quadrivalent, PF 1 completed [place] [facility] 07/28/2023 15:50:11 Influenza, adjuvanted, quadrivalent, PF 1 completed Amy [place] [facility] 07/28/2023 15:50:11 COVID-19, mRNA, LNP-S, PF, 100 mcg/0.5mL dose or 50 mcg/0.25mL dose 1 completed Amy [place] [facility] 07/28/2023 15:50:11 COVID-19, mRNA, LNP-S, PF, 100 mcg/0.5mL dose or 50 mcg/0.25mL dose 1 completed Amy [place] [facility] 07/28/2023 15:50:11 COVID-19, mRNA, LNP-S, PF, 100 mcg/0.5mL dose or 50 mcg/0.25mL dose 1 completed [place] [facility] 07/28/2023 15:50:11 COVID-19, mRNA, LNP-S, bivalent, PF, 30 mcg/0.3 mL dose 2 completed [place] [facility] 07/28/2023 15:50:11 COVID-19, mRNA, LNP-S, PF, 50 mcg/0.5 mL 3 completed [place] [facility] 07/28/2023 15:50:11 Influenza, high-dose, trivalent, PF 0 completed [place] [facility] 07/28/2023 15:50:11 Influenza, high-dose, trivalent, PF 6 completed [place] [facility] 07/28/2023 15:50:11 Influenza, split virus, trivalent, preservative 4 completed [place] [facility] 07/28/2023 15:50:11 Influenza, split virus, quadrivalent, PF 5 completed [place] [facility] 07/28/2023 15:50:11 Influenza, high-dose, trivalent, PF 4 completed Saeid Quinn MD Attn: Accounting,[address] [facility], [place], [address], [facility] - [facility] 12/07/2023 15:14:38 Past Encounters Encounter ID Performer Location Encounter Start Date Encounter Closed Date Diagnosis/Indication Diagnosis SNOMED-CT Code Diagnosis ICD10 Code Diagnosis Note [id number] Saeid Quinn MD [facility] (Adult Med) [address] [place] [phone] 04/30/2023 09:58:59 04/30/2023 11:52:43 Essential hypertension 22306698 I10 Atrial fibrillation 4943 6004 I48.91 Pulmonary Mycobacterium avium complex infection 056321779 A31.0 Gastroesop hageal reflux disease without esophagitis 475593761 K21.9 Chronic rhinitis 8109891 6 J31.0 Chronic ob structive pulmonary disease 47227917 J44.9 [id number] Saeid Quinn MD [place] (Adult Med) [address] [place] [phone] 05/27/2023 11:18:26 05/27/2023 12:51:10 Essential hypertension 96938784 I10 Atrial fibrillation 4943 6004 I48.91 Pulmonary Mycobacterium avium complex infection 285455156 A31.0 Gastroesop hageal reflux disease without esophagitis 392293471 K21.9 Chronic rhinitis 3840430 6 J31.0 Chronic ob structive pulmonary disease 13506261 J44.9 [id number] Saeid Quinn MD [facility] (Adult Med) [address] [place] [phone] 08/26/2023 11:06:50 08/26/2023 12:22:45 Chronic obstructive pulmonary disease 62611077 J44.9 Atrial fibrillation 4943 6004 I48.91 Gastroesop hageal reflux disease without esophagitis 471237600 K21.9 Chronic rhinitis 6038819 6 J31.0 [id number] MD Laurie Driscoll (Adult Med) [address] [place] [phone] 11/25/2023 11:10:07 11/25/2023 12:08:59 Essential hypertension 83057408 I10 Gout 73892542 M10.9 Administra tion of influenza vaccine 78492159 Z23 Pulmonary Mycobacterium avium complex infection 159142744 A31.0 Gastroesop hageal reflux disease without esophagitis 981164551 K21.9 Chronic ob structive pulmonary disease 72403859 J44.9 Atrial fibrillation 4943 6004 I48.91 [id number] Saeid Quinn MD [facility] (Adult Med) [address] [place] [id number] 05/14/2024 14:43:09 05/14/2024 15:54:31 Body mass index 20-24 - normal 922797888 Z68.22 Overweight 118931642 E66 .3 Essential hypertension 22465723 I10 Gastroesop hageal reflux disease without esophagitis 456796191 K21.9 Atrial fibrillation 4943 6004 I48.91 Chronic ob structive pulmonary disease 85121090 J44.9 Chronic rhinitis 9353400 6 J31.0 [id number] Saeid Quinn MD [facility] (Adult Med) [address] [place] [phone] 06/25/2024 10:24:38 06/25/2024 11:48:40 Cigarette smoker 88663626 F17.210 Smoker 73146532 F17.200 Normal weight 91804227 Z 68.21 Overweight 441079371 E66 .3 Neck pain 53750283 M54.2 Health Concerns Section Related Observation LastModified by Organization Detai ls LastModified Time None Recorded Concern Status LastModified by Organization Details LastModified Time None Recorded Advance Directives Directive None Recorded Payers Encounter Date Sequence Insurance Name Policy Number Policy Cortes Covered Member ID Cortes Member ID Guarantor Name 05/27/2023 1 [facility] (MEDICARE REPLACEMENT/A DVANTAGE - HMO) [id number] Jacqueline J Nikko [id number] Jacqueline Nikko 08/26/2023 1 [facility] (MEDICARE REPLACEMENT/A DVANTAGE - HMO) [id number] Jacqueline J Nikko [id number] Jacqueline Nikko 11/25/2023 1 [facility] (MEDICARE REPLACEMENT/A DVANTAGE - HMO) [id number] Jacqueline J Nikko [id number] Jacqueline Nikko 05/14/2024 1 [facility] (MEDICARE REPLACEMENT/A DVANTAGE - HMO) [id number] Jacqueline J Nikko [id number] Jacqueline Nikko Notes Date Note Type Note Provider Name and Address Organization Details Recorded Time 05/27/2023 text/html Short interval follow-up she feels 100% better Saeid Quinn MD Attn: Accounting,[address] [facility], [place], [address], [facility] 06/01/2023 15:07:40 08/26/2023 text/html Hypertension no headache or dizziness atrial fibrillation no palpitations does not like she has got a pass out SHAMIKA some cough GERD no nausea or vomiting chronic rhinitis stable COPD no wheezing Saeid Quinn MD Attn: Accounting,[address] [facility], [place], [address], [facility] 08/26/2023 21:31:19 11/25/2023 text/html atrial fibrillation no headache no palpitations. Gout no red hot swollen joints. hypertension no palpitations or dizziness. Chronic rhinitis stable. GERD doing fine on current medications. COPD no cough or wheezing at this time. SHAMIKA no fever chills night sweats weight loss Saeid Quinn MD Attn: Accounting,[address] [facility], [place], [address], [facility] 12/07/2023 15:16:08 05/14/2024 text/html COPD no cough wheezing or shortness of breath GERD denies nausea or vomiting atrial fibrillation she was wearing a heart monitor from Cardiology currently rhinitis has been stable on current medical management blood pressure has been continues to smoke [facility] [facility] 05/17/2024 11:56:16 OBGyn Episode No OBEpisode recorded.
--- OUTSIDE RECORDS SUMMARY | 2024-06-26 14:08 | XMS_ITS | CONTINUITY OF CARE DOCUMENT ---
Author Name colleen macias Address Unknown Organization [facility] Address [address] [place] [address] Phone [phone] Care Team Providers Care Tapper Shank Name Role Phone Marcio MORAN, Molly Unavailable SAEID SINGH MD Unavailable [phone] SAEID SINGH MD Unavailable PROBLEMS Condition Status Date Provider Notes Weight loss active Myles Jj RN Vitamin D deficiency- on meds active Myles Jj RN Palpitations active Angeli Luis Atrial fibrillation, persistent active Toy Dominguez Hypertension--echo ef nl, 12/2022 active Molly Buckley MD Aortic insufficiency, moderate active Molly Buckley MD Mitral regurgitation, mild active Molly contreras MD Tricuspid insufficiency, mild completed - Molly Buckley MD Leg edema, bilateral active Molly Buckley MD Diabetes mellitus active Molly Buckley MD Gout active Toy Dominguez Tobacco abuse active Molly Buckley MD Coumadin therapy completed - Molly Buckley MD Aortic stenosis, mild active Molly Camacho Cardiology examination active Janine frias [employer] Date Type Provider Location Encounter Diag nosis - In-person encounter Office Visit Molly Buckley MD [facility] - In-person encounter Office Visit Molly Buckley MD [facility] Office Cardiology examinati on - In-person encounter Office Visit Molly Buckley MD [facility] - In-person encounter Office Visit Molly Buckley MD [facility] Hypertension--echo ef nl, 12/2022Mitral regurgitation, mildTricuspid insufficiency, mildTobacco abuseAortic stenosis, mild - In-person encounter Office Visit Molly Buckley MD [facility] - In-person encounter Office Visit Molly Buckley MD [facility] - In-person encounter Office Visit Molly Buckley MD [facility] Tobacco abuse - In-person encounter Office Visit Mloly Buckley MD [facility] - In-person encounter Office Visit Molly Buckley MD [facility] Coumadin therapy - In-person encounter Office Visit Molly Buckley MD [facility] - In-person encounter Office Visit Molly Buckley MD [facility] - In-person encounter Office Visit Molly Buckley MD [facility] - In-person encounter Office Visit Molly Buckley MD [facility] Hypertension--echo ef nl, 12/2022 - In-person encounter Office Visit Molly Buckley MD [facility] Atrial fibrillation, persistentGout - In-person encounter Office Visit Molly Buckley MD [facility] - In-person encounter Office Visit Molly Buckley MD [facility] Diabetes mellitus - In-person encounter Office Visit Molly Buckley MD [facility] Leg edema, bilateral - In-person encounter Office Visit Molly Buckley MD [facility] - In-person encounter Office Visit Molly Buckley MD [facility] Aortic insufficiency, moderateMitral regurgitation, mild - In-person encounter Office Visit Molly Buckley MD [facility] - In-person encounter Office Visit Molly Buckley MD [facility] Hypertension--echo ef nl, 12/2022 VITAL SIGNS Date Observation Value Provider Body Mass Index (Ratio) 21.28 kg/m2 Tom Buckley MD oxygen saturation, oximetry 84 % [facility] pulse rate 83 /min [facility] blood pressure, diastolic 80 mm[Hg] [facility] blood pressure, systolic 142 mm[Hg] [facility] respiratory rate E&M 12 /min [facility] weight E&M 140 [lb_av] [facility] height E&M 68 [in_i] [facility] blood pressure, cuff size regular An [facility] Body Mass Index (Ratio) 21.13 kg/m2 Tom Buckley MD blood pressure, diastolic 91 mm[Hg] Demetra nkLogic blood pressure, systolic 164 mm[Hg] Sherie kLogic blood pressure, diastolic 91 mm[Hg] Vinicius odom Harrell blood pressure, systolic 164 mm[Hg] Rosangela Harrell blood pressure, cuff size regular Vinicius odom Harrell pulse rate 103 /min Nathalia Praneeth s weight E&M 139 [lb_av] Nathalia Praneeth s height E&M 68 [in_i] Nathalia hilton Body Mass Index (Ratio) 21.89 kg/m2 Tom Buckley MD blood pressure, cuff size regular Ja rr blood pressure, diastolic 75 mm[Hg] Ja blood pressure, systolic 122 mm[Hg] Jar pulse rate 93 /min Darshan oxygen saturation, oximetry 95 % respiratory rate E&M 16 /min Darshan weight E&M 144 [lb_av] Darshan height E&M 68 [in_i] Darshan y Body Mass Index (Ratio) 22.65 kg/m2 Adilene shrutimari Mark blood pressure, cuff size regular blood pressure, diastolic 89 mm[Hg] Ja blood pressure, systolic 164 mm[Hg] Jar pulse rate 92 /min Darshan oxygen saturation, oximetry 96 % respiratory rate E&M 12 /min Darshan weight E&M 149 [lb_av] Darshan height E&M 68 [in_i] Darshan y Body Mass Index (Ratio) 22.20 kg/m2 Tom Buckley MD blood pressure, cuff size regular Estela Murillo blood pressure, diastolic 93 mm[Hg] Estela Murillo blood pressure, systolic 148 mm[Hg] Emeterio Murillo oxygen saturation, oximetry 97 % Anisha Murillo pulse rate 60 /min Anisha Murillo respiratory rate E&M 16 /min Anisha taylor weight E&M 146 [lb_av] Anisha Murillo height E&M 68 [in_i] Anisha Murillo Body Mass Index (Ratio) 22.96 kg/m2 Carlos Taylorminerva pulse rate 100 /min Darshan y blood pressure, cuff size regular [facility] blood pressure, diastolic 90 mm[Hg] [facility], [facility] 161 mm[Hg] [facility] respiratory rate E&M 12 /min Darshan oxygen saturation, oximetry 99 % Darshan weight E&M 151 [lb_av] Darshan y height E&M 68 [in_i] Darshan y Body Mass Index (Ratio) 23.11 kg/m2 Carlos Ortega blood pressure, diastolic 94 mm[Hg] No david Holloway blood pressure, systolic 138 mm[Hg] Any madisyn Holloway pulse rate 112 /min Cindy Holloway oxygen saturation, oximetry 85 % Cindy Holloway weight E&M 152 [lb_av] Cindy Hloloway blood pressure, cuff size large An david Holloway height E&M 68 [in_i] Cindy Holloway Body Mass Index (Ratio) 23.26 kg/m2 Tmo Buckley MD blood pressure, diastolic 97 mm[Hg] josafat Garcia blood pressure, systolic 139 mm[Hg] She kelsea Garcia oxygen saturation, oximetry 97 % Gwendolyn Garcia pulse rate 88 /min Gwendolyn Garcia respiratory rate E&M 20 /min Gwendolyn Garcia weight E&M 153 [lb_av] Gwendolyn Garcia height E&M 68 [in_i] Gwendolyn Garcia blood pressure, cuff size regular Roslyn Garcia Body Mass Index (Ratio) 23.87 kg/m2 Tom Buckley MD blood pressure, diastolic 110 mm[Hg] St acy Ed blood pressure, systolic 160 mm[Hg] Sta cy Ed oxygen saturation, oximetry 99 % Amie Ed pulse rate 83 /min Amie Ed weight E&M 157 [lb_av] Amie Ed respiratory rate E&M 18 /min Amie D lui height E&M 68 [in_i] Amie Ed Body Mass Index (Ratio) 22.93 kg/m2 Elaina guerita Negrete pulse rate 100 /min Amie Ed blood pressure, diastolic 116 mm[Hg] [facility] acy Ed blood pressure, systolic 159 mm[Hg] Sta cy Ed oxygen saturation, oximetry 98 % Amie Ed respiratory rate E&M 18 /min Amie D lui weight E&M 150.8 [lb_av] Amie Ed height E&M 68 [in_i] Amie Ed Body Mass Index (Ratio) 23.87 kg/m2 Tom Buckley MD blood pressure, diastolic 89 mm[Hg] Demetra nkLogalexandru blood pressure, systolic 146 mm[Hg] Sherie kLogalexandru blood pressure, diastolic 89 mm[Hg] Barbara Dasilva blood pressure, systolic 146 mm[Hg] Alan Dasilva respiratory rate E&M 22 /min Alex Dasilva pulse rate 114 /min Alanleeelinor hanson weight E&M 157 [lb_av] Bryant hanson height E&M 68 [in_i] Bryant hanson blood pressure, cuff size regular Barbara Dasilva Body Mass Index (Ratio) 22.20 kg/m2 Alfonso Dominguez blood pressure, cuff size regular Harish Flores blood pressure, diastolic 70 mm[Hg] Cy satinder Flores blood pressure, systolic 136 mm[Hg] Kelly Flores oxygen saturation, oximetry 96 % Pilar Flores respiratory rate E&M 16 /min Pilaredwin Flores pulse rate 83 /min Pilar Jethro abbott weight E&M 146 [lb_av] Pilar Campbel l height E&M 68 [in_i] Pilar Campbel l Body Mass Index (Ratio) 23.63 kg/m2 Laina Najera blood pressure, diastolic 70 mm[Hg] Alex Macias blood pressure, systolic 130 mm[Hg] Yessenia Macias oxygen saturation, oximetry 99 % Lila Macias respiratory rate E&M 16 /min Deidra Macias pulse rate 67 /min Lila Alvares kendellmichelet weight E&M 155.4 [lb_av] Lila hartmannon height E&M 68 [in_i] Lila Alvares kendellon Body Mass Index (Ratio) 24.93 kg/m2 Tom Buckley MD blood pressure, diastolic 95 mm[Hg] To nsha Vergara blood pressure, systolic 161 mm[Hg] Ton sha Jai oxygen saturation, oximetry 98 % Tonsha Vergara respiratory rate E&M 18 /min Tonsha Vergara pulse rate 78 /min Tonsha Vergara weight E&M 164 [lb_av] Tonsha Vergara height E&M 68 [in_i] Tonsha Vergara Body Mass Index (Ratio) 24.78 kg/m2 Tom Buckley MD blood pressure, cuff size regular Cy satinder Flores blood pressure, diastolic 85 mm[Hg] Cy satinder Flores blood pressure, systolic 142 mm[Hg] Kelly edwin Flores oxygen saturation, oximetry 96 % Pilar Floers pulse rate 75 /min Pilaredwin Morelos l respiratory rate E&M 16 /min Pilar Flores weight E&M 163 [lb_av] Pilar Bjornbel l height E&M 68 [in_i] Pilaredwin Milanbel l temperature site temporal Barbara Tank sley temperature E&M 96.1 [degF] Barbara Tanks jacki Body Mass Index (Ratio) 24.33 kg/m2 Tom Buckley MD blood pressure, diastolic 73 mm[Hg] To [facility] blood pressure, systolic 120 mm[Hg] [facility] oxygen saturation, oximetry 92 % [facility] respiratory rate E&M 16 /min [facility] pulse rate 68 /min [facility] weight E&M 160 [lb_av] [facility] height E&M 68 [in_i] [facility] Body Mass Index (Ratio) 25.24 kg/m2 Tom Buckley MD blood pressure, resting Yes Marciano Conway blood pressure, diastolic 76 mm[Hg] Lyndon Conway blood pressure, systolic 118 mm[Hg] Africa Conway oxygen saturation, oximetry 99 % Ayesha Conway pulse rate 105 /min Ayesha Bui weight E&M 166 [lb_av] Ayesha Bui height E&M 68 [in_i] Ayesha Bui Body Mass Index (Ratio) 25.24 kg/m2 Tom Buckley MD blood pressure, diastolic 90 mm[Hg] Da ajay Janelle blood pressure, systolic 174 mm[Hg] Dac ia Janelle oxygen saturation, oximetry 97 % Angeli Janelle respiratory rate E&M 18 /min Angeli V oss pulse rate 91 /min Angeli Janelle weight E&M 166 [lb_av] Angeli Janelle height E&M 68 [in_i] Angeli Janelle Body Mass Index (Ratio) 25.63 kg/m2 Tom Buckley MD blood pressure, cuff size regular Ke rri Khanh blood pressure, diastolic 80 mm[Hg] Ke rri Khanh blood pressure, systolic 140 mm[Hg] Garfield Cassidy oxygen saturation, oximetry 97 % Tamika Cassidy respiratory rate E&M 18 /min Tamika G eldonenealexiser pulse rate 101 /min Tamika Marguerite lder height E&M 68 [in_i] Tamika Hermiloe lder weight E&M 168.6 [lb_av] Tamika Hermilo elder ALLERGIES Allergy Name Onset Date Reaction Criticality Status DILTIAZEM dizziness, ankle swelling Low Critic ality active RESULTS Date Observation Value Provider Reference Range Interpretation Location coagulation managed by Myles Jj RN international normalized ratio (INR) 3.7 Myles Jj RN Normal prothrombin time (patient) 44.7 s Myles Jj RN coagulation managed by Myles Jj RN international normalized ratio (INR) 3.0 Myles Jj RN Normal prothrombin time (patient) 35.9 s Myles Jj RN coagulation managed by Cheryl Holloway RN international normalized ratio (INR) 1.8 Cheryl Holloway RN Normal prothrombin time (patient) 21.9 s Cheryl Holloway RN coagulation managed by Cheryl Holloway RN international normalized ratio (INR) 4.2 Cheryl Holloway RN Normal prothrombin time (patient) 50.4 s Cheryl Holloway RN coagulation managed by Cheryl Holloway RN international normalized ratio (INR) 2.7 Cheryl Holloway RN Normal prothrombin time (patient) 32.0 s Cheryl Holloway RN international normalized ratio (INR) 1.3 Jeanette Perez Normal coagulation managed by Jeanette Perez coagulation managed by Cheryl Holloway RN international normalized ratio (INR) 4.0 Cheryl Holloway RN Normal prothrombin time (patient) 48.2 s Cheryl Holloway RN coagulation managed by Myles Jj RN international normalized ratio (INR) 2.4 Myles Jj RN Normal prothrombin time (patient) 28.5 s Myles Jj RN coagulation managed by Myles Jj RN international normalized ratio (INR) 1.9 Myles Jj RN Normal coagulation managed by Cheryl Holloway RN international normalized ratio (INR) 1.9 Cheryl Holloway RN Normal coagulation managed by Cheryl Holloway RN international normalized ratio (INR) 1.7 Cheryl Holloway RN Normal prothrombin time (patient) 20.7 s Cheryl Holloway RN coagulation managed by Cheryl Holloway RN international normalized ratio (INR) 28.0 Cheryl Holloway RN Normal prothrombin time (patient) 2.3 s Cheryl Holloway RN coagulation managed by Cheryl Holloway RN international normalized ratio (INR) 2.2 Cheryl Holloway RN Normal prothrombin time (patient) 26.0 s Cheryl Holloway RN coagulation managed by Cheryl Holloway RN international normalized ratio (INR) 2.3 Cheryl Holloway RN Normal prothrombin time (patient) 27.6 s Cheryl Holloway RN coagulation managed by Cheryl Holloway RN international normalized ratio (INR) 1.7 Cheryl Holloway RN Normal prothrombin time (patient) 20.5 s Cheryl Holloway RN international normalized ratio (INR) 2.9 Jeanette Perez Normal coagulation managed by Jeanette Perez RN Jeanettelaura Perez coagulation managed by Cheryl Holloway RN international normalized ratio (INR) 2.1 Cheryl Holloway RN Normal prothrombin time (patient) 25.5 s Cheryl Holloway RN coagulation managed by Cheryl Holloway RN international normalized ratio (INR) 1.7 Cheryl Holloway RN Normal prothrombin time (patient) 20.3 s Cheryl Holloway RN coagulation managed by Cheryl Holloway RN international normalized ratio (INR) 1.2 Cheryl Holloway RN Normal prothrombin time (patient) 14.3 s Cheryl Holloway RN coagulation managed by Cheryl Holloway RN international normalized ratio (INR) 2.2 Cheryl Holloway RN Normal prothrombin time (patient) 26.5 s Cheryl Holloway RN coagulation managed by Cheryl Holloway RN international normalized ratio (INR) 2.2 Cheryl Holloway RN Normal prothrombin time (patient) 26 s Cheryl Holloway RN coagulation managed by Myles Jj RN international normalized ratio (INR) 3.9 Myles Jj RN Normal prothrombin time (patient) 46.9 s Myles Jj RN coagulation managed by Cheryl Holloway RN international normalized ratio (INR) 2.5 Cheryl Holloway RN Normal coagulation managed by Myles Jj RN prothrombin time (patient) 28.8 s Myles Jj RN coagulation managed by Myles Jj RN international normalized ratio (INR) 2.2 Hattie Brandon Normal prothrombin time (patient) 26.9 s Hattie Brandon coagulation managed by Myles Jj RN international normalized ratio (INR) 2.6 [place] Normal prothrombin time (patient) 31.5 s Enriqueta Dean coagulation managed by Myles Jj RN international normalized ratio (INR) 1.8 Tamika Cassidy Normal prothrombin time (patient) 22.0 s Tamika Cassidy coagulation managed by Myles Jj RN international normalized ratio (INR) 1.7 Myles Jj RN Normal prothrombin time (patient) 20.9 s Myles Jj RN coagulation managed by Cheryl Holloway RN prothrombin time (patient) 59.7 s Katy Bishop international normalized ratio (INR) 5.0 Katy Bishop Normal coagulation managed by Myles Jj RN international normalized ratio (INR) 2.3 Enriqueta Dean Normal prothrombin time (patient) 27.7 s [place]eta [place] coagulation managed by Myles Jj RN international normalized ratio (INR) 1.8 Enriqueta Dean Normal prothrombin time (patient) 21.8 s [place]ri[place]eta [place] coagulation managed by Myles Jj RN international normalized ratio (INR) 1.4 Pilar Flores Normal prothrombin time (patient) 17.3 s Pilar Flores coagulation managed by Myles Jj RN international normalized ratio (INR) 4.3 Pilar Flores Normal prothrombin time (patient) 51.4 s Pilar Flores coagulation managed by Myles Jj RN prothrombin time (patient) 18.9 s Mackenzie Spears international normalized ratio (INR) 1.6 Mackenzie Spears Normal coagulation managed by Myles Jj RN prothrombin time (patient) 18.5 s Chastity Roxanne international normalized ratio (INR) 1.5 Chastity Roxanne Normal coagulation managed by Myles Jj RN international normalized ratio (INR) 2.0 Lila Macias Normal prothrombin time (patient) 24.1 s Lila Valeroenson coagulation managed by Myles Jj RN international normalized ratio (INR) 2.8 Lila Macias Normal prothrombin time (patient) 33.6 s Lila Valeroenson coagulation managed by Myles Jj RN international normalized ratio (INR) 2.7 Lila Macias Normal coagulation managed by Myles Jj RN prothrombin time (patient) 57.3 s Shakila Pfeiffer international normalized ratio (INR) 4.8 Shakila [place] Normal coagulation managed by Myles Jj RN international normalized ratio (INR) 3.1 Pilar Flores Normal prothrombin time (patient) 37.2 s Pilar Flores coagulation managed by Myles Jj RN international normalized ratio (INR) 2.2 Tamika Khanh Normal prothrombin time (patient) 25.9 s Tamika Khanh coagulation managed by Myles Jj RN international normalized ratio (INR) 2.0 Pilar Flores Normal prothrombin time (patient) 23.7 s Pilar Flores coagulation managed by Myles Jj RN international normalized ratio (INR) 2.0 Myles Jj RN Normal prothrombin time (patient) 23.7 s Myles Jj RN coagulation managed by Myles Jj RN international normalized ratio (INR) 2.0 Pilar Folres Normal prothrombin time (patient) 23.9 s Pilar Flores coagulation managed by Myles Jj RN international normalized ratio (INR) 2.7 Pilar Flores Normal prothrombin time (patient) 32.0 s Pilar Flores coagulation managed by Myles Jj RN international normalized ratio (INR) 2.7 Myles Jj RN Normal prothrombin time (patient) 32.5 s Myles Jj RN coagulation managed by Myles Jj RN international normalized ratio (INR) 1.8 Pilar Flores Normal prothrombin time (patient) 21.5 s Pilar Flores coagulation managed by Myles Jj RN international normalized ratio (INR) 1.9 Pilar Flores Normal prothrombin time (patient) 22.8 s Pilar Flores coagulation managed by Jeanette Perez international normalized ratio (INR) 2.0 Pilar Flores Normal prothrombin time (patient) 24.1 s Pilar Flores coagulation managed by Jeanette Perez international normalized ratio (INR) 1.3 Lila Macias Normal prothrombin time (patient) 15.5 s Lila Macias coagulation managed by Myles Jj RN international normalized ratio (INR) 1.8 Pilar Flores Normal prothrombin time (patient) 21.6 s Pilar Flores coagulation managed by Myles Jj RN international normalized ratio (INR) 3.7 Pilar Flores Normal prothrombin time (patient) 44.4 s Pilar Flores coagulation managed by Jeanette Perez prothrombin time (patient) 35.8 s Pilar Flores international normalized ratio (INR) 3.0 Pilar Flores Normal coagulation managed by Myles Jj RN international normalized ratio (INR) 1.6 Myles Jj RN Normal prothrombin time (patient) 19.1 s Myles Jj RN thyroid stimulating hormone, serum 2.200 u[IU]/mL LinkLogic 0.450-4.500 lipoprotein, beta, serum, point, quantitative, calculated 72 mg/dL [facility] 0-99 very low density lipoproteins 9 mg/dL [facility] 5-40 HDL cholesterol, serum 60 mg/dL [facility] >39 triglyceride, serum, random 45 mg/dL [facility] 0-149 cholesterol, serum 141 mg/dL [facility] [phone]/07 /17 alanine aminotransferase (SGPT), serum 13 1/L [facility] 0-32 aspartate aminotransferase (SGOT), serum 19 1/L [facility] 0-40 alkaline phosphatase, serum 99 1/L [facility] 39-117 bilirubin, serum, total 0.7 mg/dL [facility] 0.0-1.2 albumin/globulin ratio, serum 1.0 [facility] 1.2-2.2 Low globulin, serum 4.1 [facility] 1.5-4.5 albumin, serum 3.9 g/dL [facility] 3.7-4.7 protein, total, serum 8.0 g/dL [facility] 6.0-8.5 calcium, serum 9.7 mg/dL [facility] 8.7-10.3 carbon dioxide, venous blood 31 mmol/L [facility] 20-29 High chloride, serum 98 mmol/L [facility] 96-106 potassium, serum 4.3 mmol/L [facility] 3.5-5.2 sodium, serum 142 mmol/L [facility] 733-488 4939/07 /17 urea nitrogen/creatinin e ratio, serum 12 [facility] 12-28 eGFR if 79 mL/min/{1. 73_m2} Link[facility]ic >59 eGFR if not 69 mL/min/{1. 73_m2} Link[facility] >59 creatinine, serum 0.84 mg/dL LinkLog 0.57-1.00 urea nitrogen, blood 10 mg/dL [facility] 8-27 blood glucose, random 139 mg/dL [facility] 65-99 High hemoglobin A1C, blood, as % of total hemoglobin 6.9 % LinkLog 4.8-5.6 High platelet count 216 [phone]/07 /17 red blood cell distribution width 14.2 % [facility] 11[facility]-15.4 mean corpuscular hemoglobin concentration, RBC 33.5 G/DL [facility] 31.5-35.7 mean corpuscular hemoglobin, RBC 30.9 pg LinkLog 26.6-33.0 mean corpuscular volume, RBC 92 fL [facility] 79-97 hematocrit, blood 37.6 % [facility] 34.0-46.6 hemoglobin, blood 12.6 g/dL [facility] 11[facility]-15.9 erythrocyte (RBC) count 4.08 X10E6/UL [facility] 3.77-5.28 leukocyte count, blood 9.4 X10E3/UL [facility] 3.4-10.8 coagulation managed by Myles Jj RN international normalized ratio (INR) 2.6 Myles Jj RN Normal prothrombin time (patient) 31.6 s Myles Jj RN coagulation managed by Myles Jj RN international normalized ratio (INR) 2.0 Pilar Flores Normal prothrombin time (patient) 23.9 s Pilar Flores coagulation managed by Myles Jj RN international normalized ratio (INR) 3.2 Pilarmadisyn Flores Normal prothrombin time (patient) 38.8 s Pilar Flores coagulation managed by Myles Jj RN international normalized ratio (INR) 1.8 Myles Jj RN Normal prothrombin time (patient) 21.9 s Myles Jj RN coagulation managed by Myles Jj RN international normalized ratio (INR) 2.6 Tonsha Vergara Normal prothrombin time (patient) 31.8 s Tonsha Vergara coagulation managed by Myles Jj RN international normalized ratio (INR) 1.7 Tonsha Vergara Normal prothrombin time (patient) 20.3 s Tonsha Vergara coagulation managed by Myles Jj RN international normalized ratio (INR) 1.8 Pilar Flores Normal prothrombin time (patient) 21.4 s Pilar Flores coagulation managed by Myles Jj RN international normalized ratio (INR) 2.4 Lila Macias Normal prothrombin time (patient) 29.2 s Lila Macias coagulation managed by Myles Jj RN international normalized ratio (INR) 1.6 Myles Jj RN Normal prothrombin time (patient) 19.0 s Myles Jj RN coagulation managed by Myles Jj RN international normalized ratio (INR) 2.4 Lila Macias Normal prothrombin time (patient) 28.4 s Lila Macias coagulation managed by Myles Jj RN international normalized ratio (INR) 2.2 Pilaredwin Flores Normal prothrombin time (patient) 26.8 s Pilar Flores coagulation managed by Myles Jj RN international normalized ratio (INR) 2.4 Pilar Flores Normal prothrombin time (patient) 28.2 s Pilar Flores coagulation managed by Myles Jj RN prothrombin time (patient) 25.1 s Crystal Jewel international normalized ratio (INR) 2.1 Crystal Jewel Normal coagulation managed by Myles Jj RN prothrombin time (patient) 23.6 s Crystal Jewel international normalized ratio (INR) 2.0 Crystal Jewel Normal coagulation managed by Myles Jj RN international normalized ratio (INR) 2.4 [place] Normal prothrombin time (patient) 28.8 s [place] coagulation managed by Myles Jj RN prothrombin time (patient) 26.5 s Crystal Jewel international normalized ratio (INR) 2.2 Crystal Jewel Normal coagulation managed by Myles Jj RN international normalized ratio (INR) 2.2 [place] Normal prothrombin time (patient) 25.8 s Marco Antonio Bell coagulation managed by Myles Jj RN international normalized ratio (INR) 1.6 Pilar Flores Normal prothrombin time (patient) 18.7 s Pilar Flores coagulation managed by Myles Jj RN international normalized ratio (INR) 2.7 Pilar Flores Normal prothrombin time (patient) 32.9 s Pilar Flores coagulation managed by Myles Jj RN international normalized ratio (INR) 4.3 [place] Normal prothrombin time (patient) 51.5 s [place] coagulation managed by Myles Jj RN international normalized ratio (INR) 3.2 Pilar Flores Normal prothrombin time (patient) 38.9 s Pilar Flores coagulation managed by Myles Jj RN international normalized ratio (INR) 2.2 Pilar Flores Normal prothrombin time (patient) 26.3 s Pilar Flores coagulation managed by Myles Jj RN international normalized ratio (INR) 1.8 Pilar Folres Normal prothrombin time (patient) 22.1 s Pilar Flores coagulation managed by Yuliana Ocampo RN international normalized ratio (INR) 1.5 Pilar Flores Normal prothrombin time (patient) 18.5 s Pilar Flores coagulation managed by Myles Jj RN international normalized ratio (INR) 2.2 Pilar Flores Normal prothrombin time (patient) 26.2 s Pilar Flores coagulation managed by Myles Jj RN international normalized ratio (INR) 1.8 Pilar Flores Normal prothrombin time (patient) 21.8 s Pilar Flores coagulation managed by Myles Jj RN international normalized ratio (INR) 2.2 Pilar Flores Normal prothrombin time (patient) 26.1 s Pilar Flores coagulation managed by Ava Kelley international normalized ratio (INR) 2.8 Pilar Flores Normal prothrombin time (patient) 33.1 s Pilar Flores 2018/10 /10 coagulation managed by Myles Jj RN international normalized ratio (INR) 1.7 Pilar Flores Normal prothrombin time (patient) 20.4 s Pilar Flores coagulation managed by Myles Jj RN international normalized ratio (INR) 1.5 Angeli Janelle Normal prothrombin time (patient) 18.5 s Angeli Janelle coagulation managed by Myles Jj RN international normalized ratio (INR) 2.5 Pilar Flores Normal prothrombin time (patient) 29.9 s Pilar Flores coagulation managed by Myles Askew international normalized ratio (INR) 2.5 Pilar Flores Normal prothrombin time (patient) 30.4 s Pilar Flores coagulation managed by Myles Jj RN international normalized ratio (INR) 2.9 Pilar Flores Normal prothrombin time (patient) 34.7 s Pilar Flores coagulation managed by Myles Jj RN international normalized ratio (INR) 1.9 Pilar Florse Normal prothrombin time (patient) 23.2 s Pilar Flores coagulation managed by Alyssa Askew international normalized ratio (INR) 2.2 Pilar Flores Normal prothrombin time (patient) 25.8 s Pilar Flores coagulation managed by Myles Jj RN international normalized ratio (INR) 1.7 Pilar Flores Normal prothrombin time (patient) 20.1 s Pilar Flores coagulation managed by Alyssa Askew international normalized ratio (INR) 2.0 Tamika Khanh Normal prothrombin time (patient) 23.5 s Tamika Khanh coagulation managed by Alyssa Matiast international normalized ratio (INR) 1.7 Tamika Cassidy Normal prothrombin time (patient) 20.1 s Tamika Cassidy coagulation managed by Alyssa Askew Alyssa Matiassana international normalized ratio (INR) 2.1 Angeli Janelle Normal prothrombin time (patient) 25.5 s Angeli Janelle coagulation managed by Myles Jj RN international normalized ratio (INR) 3.4 Angeli Janelle Normal prothrombin time (patient) 40.4 s Angeli Janelle coagulation managed by Myles Jj RN international normalized ratio (INR) 3.5 Angeli Janelle Normal prothrombin time (patient) 42.3 s Angeli Janelle coagulation managed by Ava Kelley COMPENSATION/BENEFITS SPECIALIST Ava Kelley international normalized ratio (INR) 1.4 Angeli Janelle Normal prothrombin time (patient) 16.2 s Angeli Janelle coagulation managed by Myles Jj RN prothrombin time (patient) 12.4 s Jeremy Mansfield international normalized ratio (INR) 1.0 Jeremy Mansfield Low HISTORY OF MEDICATION USE Medication Status Instructions Dates Provider Indications Com ments Twan 2.5 mg tablet active 1 tablet by mouth twice a day 03/31 [facility] Specialist Chantix Starting Month Box 0.5 mg (11)- 1 mg (42) tablets,dose pack completed Take 0.5-1 tablet by mouth as directed Take 0.5 mg tablet once daily for 3 days, then 0.5 mg tablet twice daily for 4 days, then 1 mg tablet twice dailyStart 1 week prior to quit date 06/22 - 06/08 Janine Ventimiglia [employer]YROLL SPECIALIST magnesium oxide 400 mg (241.3 mg magnesium) tablet active TAKE 1 TABLET BY MOUTH TWICE DAILY Janine Ventimiglia PAYROLL SPECIALIST Trelegy Ellipta 100-62.5-25 mcg blister with device active INHALE 1 PUFF BY MOUTH EVERY DAY 08/14 Hattie Brandon albuterol sulfate 90 mcg/actuation HFA aerosol inhaler active Inhale 1 puff using inhaler as directed up to 4 times per day 08/14 Carlos Taylori Trelegy Ellipta 100-62.5-25 mcg blister with device completed Inhale 1 puff as directed once a day - 08/14 Hattie Brandon albuterol sulfate 90 mcg/actuation HFA aerosol inhaler completed Inhale 1 puff using inhaler as directed up to 4 times per day - 08/14 Carlos Shannon furosemide 40 mg tablet active Take 1 tablet by mouth once a day as needed Carlos Kimberlysamson Eliquis 5 mg tablet completed Take 1 table t by mouth twice a day - 03/31 Carlospita Ortega warfarin 5 mg tablet completed TAKE 1 TABLET ON FRIDAY ONLY TAKE A HALF OF A TABLET TO. MAKE 2.5 MG REST OF DAYS 05/01 - 07/02 Molly Buckley MD warfarin 5 mg tablet completed Take 1 tablet by mouth once a day Except on Fri take a Half of a tab to make 2.5 mg 04/04 - 05/01 Cheryl Holloway RN warfarin 5 mg tablet completed Take 1 tablet by mouth once a day Except on Fri and Fri take a Half of a tab to make 2.5 mg - 04/04 Myles Jj RN allopurinol 100 mg tablet completed TAKE 1 TABLET BY MOUTH DAILY 10/16 - 03/24 Carlos Ortega warfarin 5 mg tablet completed Take 0.5 tablet by mouth once a day 09/24 - Cheryl Holloway RN warfarin 5 mg tablet completed TAKE 1/2 TABLET BY MOUTH DAILY. EXCEPT ON SUN AND TUES TAKE 1 TABLET 08/01 - 09/24 Sharri Damon warfarin 5 mg tablet completed 1/2 tab daily except on Sun and Tues take 1 tab 07/26 - 08/01 Myles Jj RN metoprolol succinate 100 mg tablet extended release 24 hr active TAKE 1 TABLET BY MOUTH EVERY DAY 06/21 Janine YORK warfarin 5 mg tablet completed 1 tablet by mouth once a day except on Friday and Friday take 1/2 tab 06/13 - 07/26 Myles Jj RN Chantix Starting Month Box 0.5 mg (11)- 1 mg (42) tablets,dose pack completed Take 0.5-1 tablet by mouth as directed Take 0.5 mg tab once daily for 3 days, then 0.5 mg tab twice daily for 4 days, then 1 mg tab twice daily Start 1 week prior to quit date 05/30 - 03/24 Carlos Shannon warfarin 5 mg tablet completed 1 tablet by mouth every other day Vydt-[id number]-Kn t, 1/2 tab rest of days 05/30 - 06/13 Ro Tafoya warfarin 5 mg tablet completed tablet once a day one tab Xprl-Gyzrd-Gm t, 1/2 tab rest of days 10/26 - 05/30 Ro Tafoya warfarin 5 mg tablet completed TAKE 1/2 TABLET BY MOUTH FRIDAY THROUGH FRIDAY AND 1 TABLET FRIDAY AND 10/26 - 10/26 Beatrice Schuler allopurinol 100 mg tablet completed 1 tablet once a day 08/01 - 10/16 María Elena Salter colchicine 0.6 mg tablet completed Take 2 tablet by mouth twice a day 07/28 - 05/30 Pilar Flores #8, 2 days supply, Prescribed by PATSY CALVERT, Filled 07/28/2020 prednisone 20 mg tablet completed Take 3 tablet by mouth once a day 07/28 - 08/06 Ryann Flores #15, 5 days supply, Prescribed by PATSY CALVERT, Filled 07/28/2020 hydrocodone-acetami nophen 5-325 mg tablet completed Take 1 tablet by mouth every six hours as needed 07/28 - 06/22 Janine YORK #6, 1 days supply, Prescribed by PATSY CALVERT, Filled 07/28/2020 montelukast 10 mg tablet active TAKE 1 TABLET BY MOUTH EVERY DAY 03/24 Molly Buckley MD metformin 500 mg tablet completed 1 tablet twice a day 03/24 - 07/02 Molly Buckley MD Myrbetriq 25 mg tablet extended release 24 hr completed 1 tablet once a day 04/25 - 06/08 Janine Lesviaashleymarcia [facility] metoprolol succinate 50 mg tablet extended release 24 hr completed Take 1 tablet by mouth every night 06/13 - 06/21 Clark Benson WARFARIN SOD 5MG TABLETS ([facility]) completed TAKE 1 TABLET BY MOUTH ON FRIDAY, FRIDAY, AND FRIDAY. TAKE 1/2 TABLET REST OF DAYS 10/30 - 04/22 Myles Jj RN VITAMIN D 1000 UNIT ORAL TABLET completed take one daily 03/17 - 09/19 Lila Macias AMOXICILLIN-POT CLAVULANATE 875-125 MG ORAL TABLET completed Take 1 tablet orally twice daily for 5 days. 11/04 - 09/19 Angeli Luis omeprazole 20 mg capsule,delayed release(/EC) active 1 tablet once a day 06/18 Myles Jj RN HYDROCHLOROTHIAZIDE 25 MG ORAL TABLET completed ONE TAB DAILY 06/18 - 03/17 Molly Buckley MD LISINOPRIL 5 MG ORAL TABLET completed ONE TAB. DAILY 06/18 - 05/03 Kirsten Vergara change in dosage felodipine 10 mg tablet extended release 24 hr active once a day 06/18 Myles Jj RN potassium chloride 10 mEq tablet,ER particles/crystals active 1 tablet once a day 06/18 Myles Jj RN VITAMIN D3 67081 UNIT ORAL TABLET active Take 1 tablet by mouth once a week 06/18 Myles Jj RN ASPIRIN ADULT LOW DOSE 81 MG ORAL TABLET DELAYED RELEASE completed One Tab By Mouth Daily 06/18 - 11/04 Demi Dumont DILTIAZEM HCL ER 180 MG ORAL CAPSULE EXTENDED RELEASE 24 HOUR completed ones daily 06/18 - 08/04 Tamika Fordalexislyndon warfarin 5 mg tablet completed TAKE ONE-HALF TABLET Mon through Fri, 1 tab Sat and Sun 04/03 - 10/26 Myles Jj RN SOCIAL HISTORY Date Observation Value Provider personal history of marijuana use no Janine Ventimiglia [facility] drug use no Janine Ventimig agustin [facility] alcohol use no Janine Ventimig agustin [facility] smoking/tobacco cess ation, patient education and counseling yes Janine Ventimiglia [facility] number of years as a smoker 30 a Janine Ventimiglia [facility] smoking history, tot al pack/day 1 PPD Janine Ventimiglia [facility] cigarette use yes Janine Ventimi glia [facility] smoking status Current every da y smoker Janine Ventimiglia [facility] personal history of marijuana use no Janine Ventimiglia [facility] drug use no Janine Ventimig agustin [facility] alcohol use no Janine Ventimig agustin [facility] smoking/tobacco cess ation, patient education and counseling yes Janine Ventimiglia [facility] number of years as a smoker 30 a Janine Ventimiglia [facility] smoking history, tot al pack/day 02/27 PPD Janine Ventimiglia [facility] cigarette use yes Janine Ventimi glia [facility] smoking status Current every da y smoker Janine Ventimiglia [facility] personal history of marijuana use no Janine Ventimiglia [facility] drug use no Janine Ventimig agustin [facility] alcohol use no Janine Ventimig agustin [facility] smoking/tobacco cess ation, patient education and counseling yes Carlos Taylori number of years as a smoker 30 a Carlos Ahmedzai smoking history, tot al pack/day 1/ PPD Carlos Ortega cigarette use yes Carlos Ortega smoking status Current every da y smoker Carlos Ortega smoking/tobacco cess ation, patient education and counseling yes Carlos Ortega number of years as a smoker 30 a Carlos Ortega smoking history, tot al pack/day 02/27 PPD Carlos Ortega cigarette use yes Carlos Ortega smoking status Current every da y smoker Carlos Ortega social history E&M S moking History: Elan ramos currently smokes every day. Carlos Ortega smoking status Current every da y smoker Anisha Murillo social history reviewed E&M revi ewed - no changes required Molly Buckley MD social history reviewed E&M revi ewed - no changes required Carlos Ortega social history E&M S moking History: Elan ramos has never smoked. Carlos Kimberlybensonadolfo Exercise counseling yes Cindy Lucien duran smoking status Never smoker Cindy Jewel social history reviewed E&M revi ewed - no changes required Carlos elena smoking status Never smoker Ryannadia Flores social history E&M S moking History: Elan ramos has never smoked. Ryannadia Flores social history reviewed E&M revi ewed - no changes required Molly Buckley MD social history E&M S moking History: Elan ramos currently smokes every day. Elan ramos has been counseled to quit. Molly Buckley MD Exercise counseling yes Amie Bradshaw smoking/tobacco cess ation, patient education and counseling yes Amie Ward number of years as a smoker 30 a Amie Ward smoking history, tot al pack/day 02/27 PPD Amie Ward cigarette use yes Amie Ward smoking status Current every da y smoker Amie Ward social history reviewed E&M revi ewed - no changes required Molly Buckley MD social history E&M S moking History: P atient currently smokes every day. P atient has been counseled to quit. Carlos Ortega Exercise counseling yes Amie Ramesh patterson smoking/tobacco cess ation, patient education and counseling yes Amie Ward number of years as a smoker 30 a Amie Ward smoking history, tot al pack/day 1/4 PPD Amie Ward cigarette use yes Amie Ward smoking status Current every da y smoker Amie Ward social history reviewed E&M revi ewed - no changes required Carlos Ortega social history reviewed E&M revi ewed - no changes required Ro Tafoya Exercise counseling yes Jonn Dasilva social history reviewed E&M revi ewed - no changes required Carlos Ortega social history E&M S moking History: P atient currently smokes every day. P atient has been counseled to quit. Toy Dominguez social history reviewed E&M revi ewed - no changes required Toy Dominguez smoking/tobacco cess ation, patient education and counseling yes Pilar Mark number of years as a smoker 30 a Pilar Mark smoking history, tot al pack/day 1/4 PPD Pilar Mark cigarette use yes Pilar james smoking status Current every da y smoker Pilar Mark number of grandchildren Molly Dominguez social history E&M S moking History: P atient currently smokes every day. P atient has been counseled to quit. Toy Dominguez social history reviewed E&M revi ewed - no changes required Toy Dominguez smoking/tobacco cess ation, patient education and counseling yes Lila Macias number of years as a smoker 30 a Lila Macias smoking history, tot al pack/day 1/4 PPD Lila Macias cigarette use yes Lila hodges smoking status Current every da y smoker Lila Macias social history E&M S moking History: P atient currently smokes every day. P atient has been counseled to quit. Loyda Quinones social history reviewed E&M revi ewed - no changes required Loyda Joni smoking/tobacco cess ation, patient education and counseling yes Tonsha Vergara number of years as a smoker 30 a Tonsha Vergara smoking history, tot al pack/day 1/4 PPD Tonsha Vergara cigarette use yes Tonsha Vergara smoking status Current every da y smoker Tonsha Vergara social history E&M S moking History: P atient currently smokes every day. P atient has been counseled to quit. Toy Dominguez social history reviewed E&M revi ewed - no changes required Toy Dominguez smoking/tobacco cess ation, patient education and counseling yes Pilar Flores number of years as a smoker 30 a Pilar Flores smoking history, tot al pack/day 1/4 PPD Pilar Flores cigarette use yes Pilar james smoking status Current every da y smoker Pilar Mark social history E&M S moking History: P atient currently smokes every day. P atient has been counseled to quit. Molly Buckley MD social history reviewed E&M revi ewed - no changes required Molly Buckley MD smoking/tobacco cess ation, patient education and counseling yes Tonsha Vergara number of years as a smoker 30 a [facility] smoking history, tot al pack/day 1/4 PPD [facility] cigarette use yes [facility] smoking status Current every da y smoker [facility] smoking/tobacco cess ation, patient education and counseling yes Molly Buckley MD social history E&M S moking History: P richard currently smokes every day. P richard has been counseled to quit. Molly Buckley MD social history reviewed E&M revi ewed - no changes required Molly Buckley MD number of years as a smoker 30 a Ayesha Conway smoking history, tot al pack/day 1/4 PPD Ayesha Conway cigarette use yes Ayesha Leonard smoking status Current every da y smoker Ayesha Conway social history E&M S moking History: Elan ramos currently smokes every day. Molly Buckley MD social history reviewed E&M revi ewed - no changes required Molly Buckley MD number of years as a smoker 30 a Angeli Janelle smoking history, tot al pack/day 1/4 PPD Angeli Janelle cigarette use yes Angeli Janelle smoking status Current every da y smoker Angeli Janelle social history E&M S moking History: Elan ramos currently smokes every day. Molly Buckley MD social history reviewed E&M revi ewed - no changes required Molly Buckley MD number of years as a smoker 30 a Tamika Cassidy smoking history, tot al pack/day 1/4 PPD Tamika Cassidy cigarette use yes Tamika roth smoking status Current every da y smoker Tamika Cassidy FAMILY HISTORY Family Member Condition First Degree Blood Relative No Known Fam rolanda History INSURANCE PROVIDERS Payer name Policy type / Coverage type Bill galicia republican ID AARP MEDICARE ADVANTAGE [employer] (PPO) Medicare [id number] ADVANCE DIRECTIVES Name Date DISCUSSED - NO DECISION MADE TREATMENT PLAN Date Name Performer [id number],S, Carlos Ahmedza i [id number],S, Carlos Ahmedza i [id number],S, Carlos Ahmedza i [id number],S, Carlos Ahmedza i [id number],S, Carlos Ahmedza i [id number],S, Carlos Ahmedza i [id number],S, Carlos Ahmedza i [id number],S, Carlos Ahmedza i [id number],S, Carlos Ahmedza i [id number],S, Carlos Ahmedza i [id number],S, Carlos Ahmedza i [id number],S, Carlos Ahmedza i [id number],S, Carlos Ahmedza i [id number],S, Carlos Ahmedza i [id number],S, Carlos Ahmedza i [id number],S, Carlos Ahmedza i [id number],S, Carlos Ahmedza i [id number],S, Carlos Ahmedza i [id number],S, Carlos Ahmedza i [id number],S, Ryann Yeager s [id number],S, P rior BP: 160/110 (07/02/2022) Ryann Flores [id number],S, Ryann hilton [id number],S, Molly Buckley MD [id number],S, Molly Buckley MD [id number],B, Molly Buckley MD [id number],B, Molly Buckley MD [id number],S, Molly Buckley MD [id number],S, Carlos Ahmedza i [id number],S, Carlos Ahmedza i [id number],S, Carlos Ahmedza i [id number],S, Carlos Ahmedza i [id number],S, Carlos Ahmedza i [id number],B, Carlos Ahmedza i [id number],B, Ro Chucky obsmdyer [id number],S, Ro Locke obsmeyer [id number],W, Ro Locke obsmeyer [id number],S, Ro Chucky obsmeyer [id number],S, Ro Jac obsmeyer Cardiology:BP well c ontrolled in office today c ontinue present medication regimen H er updated medication list for this problem includes: Metoprolol Succinate 100 Mg Tablet Extended Release 24 Hr (Metoprolol succinate) ..... Take 1 tablet by mouth every day Furosemide 40 Mg Tablet (Furosemide) ..... Take 1 tablet by mouth once a day as needed Felodipine 10 Mg Tablet Extended Release 24 Hr (Felodipine) ..... Once a day T his visit has been a part of the consistent, comprehensive, and ongoing management of the chronic medical condition(s) listed above for the patient. Molly Buckley MD Cardiology:remains on replacemen t therapy [facility] Cardiology Ona Lesviaaries winters [facility] Cardiology:cessation encouraged [facility] Cardiology:rate cont rolled c ontinue BB dose O n eliquis for AC H er updated medication list for this problem includes: Metoprolol Succinate 100 Mg Tablet Extended Release 24 Hr (Metoprolol succinate) ..... Take 1 tablet by mouth every day [facility] Cardiology:BP well c ontrolled in office today c ontinue present medication regimen H er updated medication list for this problem includes: Metoprolol Succinate 100 Mg Tablet Extended Release 24 Hr (Metoprolol succinate) ..... Take 1 tablet by mouth every day Furosemide 40 Mg Tablet (Furosemide) ..... Take 1 tablet by mouth once a day as needed Felodipine 10 Mg Tablet Extended Release 24 Hr (Felodipine) ..... Once a day [facility] Cardiology:She is ta chycardic this am with reports of palpitations W ill increase BB dose w ill plan tele monitor w ill decrease Eliquis to 2.5 mg BID based on age and weight H er updated medication list for this problem includes: Metoprolol Succinate 100 Mg Tablet Extended Release 24 Hr (Metoprolol succinate) ..... Take 1 tablet by mouth every day T his visit has been a part of the consistent, comprehensive, and ongoing management of the chronic medical condition(s) listed above for the patient. Molly Buckley MD Cardiology:cessation encouraged [facility] Cardiology:plan tele monitor H er updated medication list for this problem includes: Metoprolol Succinate 100 Mg Tablet Extended Release 24 Hr (Metoprolol succinate) ..... Take 1 tablet by mouth every day Felodipine 10 Mg Tablet Extended Release 24 Hr (Felodipine) ..... Once a day Ona Cameliamarcia [facility] Cardiology:BP elevat ed W ill increase BB and monitor W ill return in one month for recheck or sooner if needed. H er updated medication list for this problem includes: Metoprolol Succinate 100 Mg Tablet Extended Release 24 Hr (Metoprolol succinate) ..... Take 1 tablet by mouth every day Furosemide 40 Mg Tablet (Furosemide) ..... Take 1 tablet by mouth once a day as needed Felodipine 10 Mg Tablet Extended Release 24 Hr (Felodipine) ..... Once a day [facility] Cardiology:unchanged E F of 55% [facility] Cardiology:echo show ed EF of 55% w ith mod AR and mild [facility] Cardiology:She is ta chycardic this am with reports of palpitations W ill increase BB dose w ill plan tele monitor w ill decrease Eliquis to 2.5 mg BID based on age and weight H er updated medication list for this problem includes: Metoprolol Succinate 100 Mg Tablet Extended Release 24 Hr (Metoprolol succinate) ..... Take 1 tablet by mouth every day [facility] Cardiology:EF of 55% mild on last echo with mod AR. ENRIQUE of 0.84cm2 W e will repeat echo in December [facility] Cardiology:rate andrzej ins controlled. remains on Eliquis for AC and tolerating well H er updated medication list for this problem includes: Metoprolol Succinate 50 Mg Tablet Extended Release 24 Hr (Metoprolol succinate) ..... Take 1 tablet by mouth daily at night [facility] Cardiology:mild MR o n last echo E F remains 55% [facility] Cardiology:Blood pre ssure 122/75 in office today c ontinue present medication regimen [facility] Cardiology:cessation encouraged. she would like to try Chantix and will send order. [facility] Cardiology Carlos Ortega Cardiology: O rders: C BC (INCLUDES DIFF/PLT) (6399) F ERRITIN (457) I BESSIE AND TOTAL IRON BINDING CAPACITY (9573) C OMPREHENSIVE METABOLIC PANEL, W/EGFR (95036) L IPID PANEL (7600) HEMOGLOBIN A1c (496) P ROBNP, N TERMINAL (11985) V itamin D, 25-Hydroxy (227315) Carlos Ahmedzai Cardiology Carlos Ahmedzai Cardiology Carlos Ahmedzai Cardiology Carlos Ahmedzai Cardiology Carlos Ahmedzai Cardiology Carlos Ahmedzai Cardiology Carlos Ahmedzai Cardiology Carlos Ahmedzai Cardiology Carlos Ahmedzai Cardiology Carlos Ahmedzai Cardiology Carlos Ahmedzai Cardiology Carlos Ahmedzai Cardiology Carlos Ahmedzai Cardiology Carlos Ahmedzai Cardiology Carlos Ahmedzai Cardiology Carlos Ahmedzai Cardiology Carlos Ahmedzai Cardiology Carlos Ahmedzai Cardiology Carlos Ahmedzai Cardiology Carlos Ahmedzai Cardiology Carlos Ahmedzai Cardiology Carlos Ahmedzai Cardiology Carlos Ahmedzai Cardiology Carlos Ahmedzai Cardiology Carlos Ahmedzai Cardiology Ryann Flores Cardiology: P rior BP: 160/110 (07/02/2022) Ryann Flores Cardiology Ryann Flores Cardiology Molly Buckley MD Cardiology Molly Buckley MD Cardiology Molly Buckley MD Cardiology Molly Buckley MD Cardiology Molly Buckley MD Cardiology Carlos Ahmedzai Cardiology Carlos Ahmedzai Cardiology Carlos Ahmedzai Cardiology Carlos Ahmedzai Cardiology Carlos Ahmedzai Cardiology Carlos Ahmedzai Cardiology Ro Jacobsm eyer Cardiology Ro Jacobsm eyer Cardiology Ro Jacobsm eyer [facility] [place] [facility] [place] [facility] [place] [facility] [place] [facility] [place] [facility] [place] [facility] [place] [facility] [place] [facility] [place] [facility] - Molly Buckley MD Cardiology - Molly Buckley MD Cardiology - Molly Buckley MD Cardiology - Molly Buckley MD Cardiology - Molly Buckley MD Cardiology - Molly Buckley MD Cardiology [place] [facility] Molly Buckley MD [facility] [place] [facility] [place] [facility] [place] [facility] Molly Buckley MD Cardiology Molly Buckley MD Cardiology Molly Buckley MD Cardiology Molly Buckley MD Cardiology Molly Buckley MD Cardiology Molly Buckley MD Cardiology Molly Buckley MD Cardiology Molly Buckley MD Cardiology Molly Buckley MD Cardiology follow up Molly ray MD Cardiology follow up Molly ray MD Cardiology follow up Molly ray MD [facility]iology [place] Follow [facility] To tanner Buckley MD Cardiology [place] Follow [facility] To tanner Buckley MD Cardiology [place] Follow up To tanner Buckley MD Date Name Monitor - Telemetry (Mobile Cardiac) Complete Echo Complete Echo Vitamin D, 25-Hydrox y PROBNP, N TERMINAL HEMOGLOBIN A1c LIPID PANEL COMPREHENSIVE METABO LIC PANEL, W/EGFR IRON AND TOTAL IRON BINDING CAPACITY FERRITIN CBC (INCLUDES DIFF/P LT) Complete Echo CBC (H/H, RBC, INDIC ES, WBC, PLT) HEMOGLOBIN A1c LIPID PANEL PROBNP, N TERMINAL COMPREHENSIVE METABO LIC PANEL, W/EGFR Complete Echo CBC (H/H, RBC, INDIC ES, WBC, PLT) COMPREHENSIVE METABO LIC PANEL, W/EGFR Prothrombin Time w/I NR Prothrombin Time w/I NR TSH, 3RD GENERATION W/REFLEX TO FT4 LIPID PANEL HEMOGLOBIN A1c CBC (H/H, RBC, INDIC ES, WBC, PLT) COMPREHENSIVE METABO LIC PANEL, W/EGFR Holter Monitor 24 Hr Complete Echo HEMOGLOBIN A1c Vitamin D, 25-Hydrox y TSH, 3RD GENERATION W/REFLEX TO FT4 LIPID PANEL CBC (H/H, RBC, INDIC ES, WBC, PLT) COMPREHENSIVE METABO LIC PANEL, W/EGFR Vitamin D, 25-Hydrox y TSH, 3RD GENERATION W/REFLEX TO FT4 HEMOGLOBIN A1c CBC (H/H, RBC, INDIC ES, WBC, PLT) COMPREHENSIVE METABO LIC PANEL, W/EGFR LIPID PANEL Venous Doppler Bilat eral LE Venous Doppler Bilat eral LE - Reflux INR Strip Holter Monitor 48 hr HISTORY OF PROCEDURES Procedure Date Procedure Name Provider Procedure Notes S tatus Complex e/m visit add on Molly Buckley MD completed Complex e/m visit add on Molly Buckley MD completed EKG Molly Buckley MD completed Tobacco user + tobac co cessation intervention Molly Buckley MD completed Tobacco user + tobac co cessation intervention Molly Buckley MD completed EKG Molly Buckley MD completed Penny Carmona MD complet ed Penny Jj RN completed Penny Buckley MD completed Penny Tierney MD comp leted EKG Gwendolyn Garcia completed Penny Carmona MD complet ed Penyn Beal MD complet ed Penny Carmona MD complet ed Penny Carmona MD complet ed Penny Buckley MD completed Penny Buckley MD completed Protroger Reynolds MD completed Penny Buckley MD completed Penny Buckley MD completed Penny Mann MD complete d Penny Carmnoa MD complet ed Penny Buckley MD completed Penny Buckley MD completed Protime Reji Carmona MD complet ed Protime Ty Reynolds MD completed Protime Chon Mc MD completed Protime Fletcher Patten MD compl eted Protime Ariel Hoyos MD completed EKSandee Buckley MD completed Protime Etienne Beal MD complet ed Protime Myles Jj RN completed Protime Molly Buckley MD completed Protime Myles Jj RN completed Protime Myles Jj RN completed Protime Nurse .Triage completed Protime Nurse .Triage completed Protime Molly Buckley MD completed Protime Bill Goldberg MD complete d Protime Molly Buckley MD completed Protime Myles Jj RN completed Protime Nurse .Triage completed Protime Nurse .Triage completed Protime Myles Jj RN completed Protime Molly Buckley MD completed [place], 24 or 48 Molly Buckley MD com pleted Protime Nurse .Triage completed Protime Molly Buckley MD completed Protime Molly Buckley MD completed FLORENCE Buckley MD completed Protime Bill Goldberg MD complete d Protime Molly Buckley MD completed Protime Bill Goldberg MD complete d Protime Molly Buckley MD completed Protime Molly Buckley MD completed Protime Molly Buckley MD completed Protime Bill Goldberg MD complete d Protime Bill Goldberg MD complete d Protime Bill Goldberg MD complete d Protime Fletcher Patten MD compl eted Protime Molly Buckley MD completed Protime Molly Buckley MD completed Protime Molly Buckley MD completed Protime Molly Buckley MD completed Protime Fletcher Patten MD compl eted Protime Alan Tierney MD comp leted Protime Alan Tierney MD comp leted Protime Fletcher Patten MD compl eted Protime Fletcher Patten MD compl eted Protime Fletcher Patten MD compl eted Protime Alan Tierney MD comp leted Germán, 24 or 48 Molly Buckley MD com pleted FLORENCE Buckley MD completed Protime Burton Mann MD complete d Protime Molly Buckley MD completed Protime Molly Buckley MD completed Protime Ty Reynolds MD completed Protime Molly Buckley MD completed Protime Molly Buckley MD completed Protime Burton Mann MD complete d Protime Molly Buckley MD completed Protime Molly Buckley MD completed Protime Ty Reynolds MD completed Protime Burton Mann MD complete d Protime Ty Reynolds MD completed Protime Ty Reynolds MD completed Holter, 24 or 48 Molly Buckley MD com pleted Protime Ty Reynolds MD completed Darnellime Burton Mann MD complete d Penny Carmona MD complet ed Penny Reynolds MD completed Protime Ty Reynolds MD completed Penny Carmona MD complet ed Penny Mann MD complete d Protime Burton Mann MD complete d Protime Ty Reynolds MD completed Protime Molly Buckley MD completed Protime Molly Buckley MD completed Protime Molly Buckley MD completed Protime Molly Buckley MD completed FLORENCE Buckley MD completed Protime Molly Buckley MD completed Protime Molly Buckley MD completed Protime Molly Buckley MD completed Protime Molly Buckley MD completed Protime Molly Buckley MD completed Protime Molly Buckley MD completed SOHEILA Buckley MD co mpleted
== END 2024-06-25 13:39 | disposition home or self-care (01) ==
LOC: ANHIMG 13:45
PROVIDERS: PCP Internal Medicine; Visit Provider Internal Medicine
DX: M54.2 Cervicalgia (principal)
CPT/HCPCS: 72040

== ENCOUNTER 2024-08-25 10:46 | Outpatient (CLI) | payer MEDICARE, SELFPAY ==
--- NOTE | ~2024-08-25 | CT_ITS ---
Clinical Indication: Abnormal chest x-ray CT Scan of the Chest with Contrast: Technique: Contiguous sections were acquired throughout the chest after intravenous administration of 70 cc of Omnipaque 350. Dose reduction technique was used on this scan by utilizing automated exposu re control and iterative reconstruction technique. The dose-length product (DLP) was 128.65 mGy-cm. Findings: There is no evidence of any significant mediastinal, hilar or axillary lymphadenopathy. There is no f illing defect in the pulmonary arterial tree to suggest pulmonary embolus. There is no evidence of ao rtic dissection or aneurysm. There is no evidence of pleural or pericardial effusion. There is extensive right-sided volume loss with extensive consolidation and areas of cystic or bronch iectatic change throughout the right lung. Left lung is hyperexpanded with moderate emphysema and pro bable posterior chronic scarring or atelectasis. Acute pneumonia cannot be completely excluded, espec ially without any prior exams for comparison. Images through the upper abdomen reveal no abnormalities. Impression: Extensive probable chronic right-sided volume loss with extensive areas of consolidation/atelectasis, with extensive presumed bronchiectatic and/or other cystic change. Correlate clinically for acute pn eumonia. Correlate for prior radiation therapy. Hyperexpanded left lung with moderate emphysema. Posterior consolidation in the left upper lobe, which could reflect chronic atelectasis versus possib ly pneumonia. Again, clinical correlation required. Reviewed, dictated and finalized at [facility]. Impression: Extensive probable chronic right-sided volume loss with extensive areas of cons olidation/atelectasis, with extensive presumed bronchiectatic and/or other cyst ic change. Correlate clinically for acute pneumonia. Correlate for prior radiat ion therapy. Hyperexpanded left lung with moderate emphysema. Posterior consolidation in the left upper lobe, which could reflect chronic ate lectasis versus possibly pneumonia. Again, clinical correlation required.
--- OUTSIDE RECORDS SUMMARY | 2024-08-25 11:04 | XMS_ITS | Data Portability ---
Author Organization [place] [facility] [employer], Main Office Address [address] [place] [address] Assessment Encounter Date Assessment Date Assessment LastModified by Organization Details LastModified Time 08/07/2022 08/07/2022 AFib anticoagulated and rate controlled. Rhinitis Singulair gout allopurinol GERD omeprazole AFib RVR stable still follows with Pulmonary Cardiology continue current therapy and follow up with me in 4 months [email or web address] Not available 09/15/2022 18:55:36 11/06/2022 11/06/2022 Will continue current therapy will follow-up in 4 months [email or web address] Not available 11/19/2022 10:24:25 12/11/2022 12/11/2022 Continue current therapy follow-up in 4 months Not available 12/13/2022 11:44:02 03/12/2023 03/12/2023 Warned of the il l effects of tobacco which were included but not limited to increased tumors of the aerodigestive tract increase incidence of heart attack stroke and cancer that can lead to cope chronic illness or sudden follow-up with me in 4 months continue current therapy [email or web address] Not available 03/25/2023 09:34:46 Plan of Treatment Reminders Order Date Submit Date Provider Last Modified By Organization Details Last Modified Time Details Appointments None recorded. Lab uric acid, serum or plasma 2022 023 [email or web address] [facility] (Lab), [address] [place], [address], 16:04:31 HbA1c (hemoglobin A1c), blood [email or web address] [place] [address] (Lab), [address] [place], [address], 4 18:25:52 T4, free, serum 2022 023 [facility] (Lab), [address] [place], [address], 3 16:04:55 T3, free, serum or plasma 2022 023 [facility] (Lab), [address] [place], [address], 3 16:36:30 TSH, serum or plasma 2022 023 [facility] (Lab), [address] [place], [address], 3 16:06:46 CMP, serum or plasma 2022 023 [facility] (Lab), [address] [place], [address], 3 16:04:20 lipid panel, serum 2022 023 [facility] (Lab), [address] [place], [address], 3 16:04:25 CBC w/ auto diff 2022 023 [email or web address] [facility] (Lab), [address] [place], [address], 3 13:47:39 Referral None recorded. Procedures None recorded. Surgeries None recorded. Imaging None recorded. Medication Orders mirtazapine 15 mg tablet 2022 023 [email or web address] [id number], [address], [place], [id number], 4 11:16:17 Patient TargetsNo targets recorded. Patient InstructionsNo instructions recorded. Reason for Referral None Reported. Results Created Date Observation Date Name Description Value Unit Range Abnormal Flag Note LastModifiedBy Organization Detail LastModifiedTime 11/07/1911/06/2022 CBC/C OMPLE TE BLD COUNT W/DIF F white blood cells 7.8 x10'3 /uL 4.2-10 .8 Not Available [facility] (Lab) [address] [place], [address], 11/06/2022 12:55:26 11/07/1911/06/2022 CBC/C OMPLE TE BLD COUNT W/DIF F red blood cells 3.97 x10'6 /uL 3.80-5 .20 Not Available [facility] (Lab) [address] [place], [address], 11/06/2022 12:55:26 11/07/1911/06/2022 CBC/C OMPLE TE BLD COUNT W/DIF F hemoglobin 11.8 g/dL 12.0-1 5.6 low Not Available [facility] (Lab) [address] [place], [address], 11/06/2022 12:55:26 11/07/1911/06/2022 CBC/C OMPLE TE BLD COUNT W/DIF F hematocrit 36.5 % 35.7-4 5.7 Not Available [facility] (Lab) [address] [place], [address], 11/06/2022 12:55:26 11/07/19 23 11/06/2022 CBC/C OMPLE TE BLD COUNT W/DIF F mean red cell volume 91.9 fL 82.0-9 9.0 Not Available [facility] (Lab) [address] [place], [address], 11/06/2022 12:55:26 11/07/19 23 11/06/2022 CBC/C OMPLE TE BLD COUNT W/DIF F mean red cell hemoglobin 29.7 pg 27.0-3 3.0 Not Available [facility]Lab[facility] [address] [facility] [place], [address], 11/06/2022 12:55:26 11/07/1911/06/2022 CBC/C OMPLE TE BLD COUNT W/DIF F mean RBC HGB concentratio n 32.3 g/dL 31.0-3 6.0 Not Available [facility] (Lab) [address] [place], [address], 11/06/2022 12:55:26 11/07/1911/06/2022 CBC/C OMPLE TE BLD COUNT W/DIF F red cell distribution width 15.6 % 11.8-1 5.5 high Not Available [facility] (Lab) [address] [place], [address], 11/06/2022 12:55:26 11/07/1911/06/2022 CBC/C OMPLE TE BLD COUNT W/DIF F platelets 201 x10'3 /uL 150-40 0 Not Available [facility] (Lab) [address] [place], [address], 11/06/2022 12:55:26 11/07/1911/06/2022 CBC/C OMPLE TE BLD COUNT W/DIF F mean platelet volume 9.7 fL 9.0-12 .4 Not Available [facility] (Lab) [address] [place], [address], 11/06/2022 12:55:26 11/07/1911/06/2022 CBC/C OMPLE TE BLD COUNT W/DIF F neutrophils 72.6 % 39.0-7 2.0 high Not Available [facility] (Lab) [address] [place], [address], 11/06/2022 12:55:26 11/07/1911/06/2022 CBC/C OMPLE TE BLD COUNT W/DIF F lymphocytes 19.5 % 16.0-4 7.0 Not Available [facility] (Lab) [address] [place], [address], 11/06/2022 12:55:26 11/07/1911/06/2022 CBC/C OMPLE TE BLD COUNT W/DIF F monocytes 6.1 % 5.0-12 .0 Not Available [facility] (Lab) [address] [place], [address], 11/06/2022 12:55:26 11/07/1911/06/2022 CBC/C OMPLE TE BLD COUNT W/DIF F eosinophils 1.0 % 1.0-7. 0 Not Available [facility] (Lab) [address] [place], [address], 11/06/2022 12:55:26 11/07/1911/06/2022 CBC/C OMPLE TE BLD COUNT W/DIF F basophils 0.4 % 0.0-2. 0 Not Available [facility] (Lab) [address] [place], [address], 11/06/2022 12:55:26 11/07/1911/06/2022 CBC/C OMPLE TE BLD COUNT W/DIF F immature granulocytes 0.4 % 0.00-0 .50 Not Available [facility] (Lab) [address] [place], [address], 11/06/2022 12:55:26 11/07/1911/06/2022 CBC/C OMPLE TE BLD COUNT W/DIF F neutrophils, absolute count 5.64 x10'3 /uL 1.5-8. 0 Not Available [facility] (Lab) [address] [place], [address], 11/06/2022 12:55:26 09/13/20 23 11/06/2022 CBC/C OMPLE TE BLD COUNT W/DIF F lymphocytes, absolute count 1.51 x10'3 /uL 1.07-3 .43 Not Available [facility] (Lab) [address] [place], [address], 11/06/2022 12:55:26 11/07/19 23 11/06/2022 CBC/C OMPLE TE BLD COUNT W/DIF F monocytes, absolute count 0.47 x10'3 /uL 0.29-0 .99 Not Available [facility] (Lab) [address] [place], [address], 11/06/2022 12:55:26 11/07/1911/06/2022 CBC/C OMPLE TE BLD COUNT W/DIF F eosinophils, absolute count 0.08 x10'3 /uL 0.02-0 .53 Not Available [facility] (Lab) [address] [place], [address], 11/06/2022 12:55:26 11/07/19 23 11/06/2022 CBC/C OMPLE TE BLD COUNT W/DIF F basophils, absolute count 0.03 x10'3 /uL 0.01-0 .08 Not Available [facility] (Lab) [address] [place], [address], 11/06/2022 12:55:26 11/07/1911/06/2022 CBC/C OMPLE TE BLD COUNT W/DIF F immature granulocytes ,absolute 0.03 x10'3 /uL 0.00-0 .05 Not Available [facility] (Lab) [address] [place], [address], 11/06/2022 12:55:26 11/07/1911/06/2022 CBC/C OMPLE TE BLD COUNT W/DIF F nucleated red blood cells 0.0 % -0 Not Available [facility] (Lab) [address] [place], [address], 11/06/2022 12:55:26 11/07/19 23 11/06/2022 CBC/C OMPLE TE BLD COUNT W/DIF F NRBC# 0.00 x10'3 /uL Not Available [facility] (Lab) [address] [place], [address], 11/06/2022 12:55:26 11/07/19 23 11/06/2022 HEMOG LOBIN A1C HA1C 6.3 % 4.0-6. 0 high Diabe tavia Scree naomi Crite tye: <5.7% Consi stent with absen ce of diabe tavia 5.7-6 .4% Consi stent with incre ased risk for diabe tavia (pred iabet es) >OR=6 .5% Consi stent with diabe tavia REFER ENCE: Diabe tavia Care 2016, 39(Rojas ppl.1 ):s13 -s22 Not Available [facility] (Lab) [address] [place], [address], 11/06/2022 13:40:06 11/07/19 23 11/06/2022 COMPR EHENS LAURA METAB OLIC PANEL sodium 139 mmol/ L 137-14 5 Not Available [facility] (Lab) [address] [place], [address], 11/06/2022 16:04:20 11/07/1911/06/2022 COMPR EHENS LAURA METAB OLIC PANEL potassium 3.2 mmol/ L 3.5-5. 1 low Not Available [facility] (Lab) [address] [place], [address], 11/06/2022 16:04:20 11/07/19 23 11/06/2022 COMPR EHENS LAURA METAB OLIC PANEL chloride 100 mmol/ L 98-107 Not Available [facility] (Lab) [address] [place], [address], 11/06/2022 16:04:20 11/07/19 23 11/06/2022 COMPR EHENS LAURA METAB OLIC PANEL carbon dioxide 33 mmol/ L 22-30 high Not Available [facility] (Lab) [address] [place], [address], 11/06/2022 16:04:20 11/07/19 23 11/06/2022 COMPR EHENS LAURA METAB OLIC PANEL anion gap 9.2 mmol/ L 14-22 low Not Available [facility] (Lab) [address] [place], [address], 11/06/2022 16:04:20 11/07/19 23 11/06/2022 COMPR EHENS LAURA METAB OLIC PANEL glucose 138 mg/dL 70-99 high Not Available [facility] (Lab) [address] [place], [address], 11/06/2022 16:04:20 11/07/19 23 11/06/2022 COMPR EHENS LAURA METAB OLIC PANEL BUN 10 mg/dL 8-19 Not Available [facility] (Lab) [address] [place], [address], 11/06/2022 16:04:20 11/07/19 23 11/06/2022 COMPR EHENS LAURA METAB OLIC PANEL creatinine 0.65 mg/dL 0.66-1 .25 low Not Available [facility] (Lab) [address] [place], [address], 11/06/2022 16:04:20 11/07/19 23 11/06/2022 COMPR EHENS LAURA METAB OLIC PANEL GFR >60 Refer ence Range : [place] ge GFR Healt hy Adult : >60 [...] calcu lator is avail able on the [facility] websi te: https :[email or web address] maria nunez.o hannah/pr ofess ional s/kdo qi/gf r_cal culat or Not Available [facility] (Lab) [address] [place], [address], 11/06/2022 16:04:20 11/07/1911/06/2022 COMPR EHENS LAURA METAB OLIC PANEL alkaline phosphatase 93 U/L 38-126 Not Available [facility] (Lab) [address] [place], [address], 11/06/2022 16:04:20 11/07/19 23 11/06/2022 COMPR EHENS LAURA METAB OLIC PANEL alanine aminotransfe rase 19 U/L 0-35 Not Available [facility] (Lab) [address] [place], [address], 11/06/2022 16:04:20 11/07/19 23 11/06/2022 COMPR EHENS LAURA METAB OLIC PANEL aspartate aminotransfe rase 24 U/L 15-37 Not Available [facility] (Lab) [address] [place], [address], 11/06/2022 16:04:20 11/07/19 23 11/06/2022 COMPR EHENS LAURA METAB OLIC PANEL bilirubin, total 0.80 mg/dL 0.20-1 .30 Not Available [facility] (Lab) [address] [place], [address], 11/06/2022 16:04:20 11/07/19 23 11/06/2022 COMPR EHENS LAURA METAB OLIC PANEL calcium 9.0 mg/dL 8.4-10 .2 Not Available [facility] (Lab) [address] [place], [address], 11/06/2022 16:04:20 11/07/19 23 11/06/2022 COMPR EHENS LAURA METAB OLIC PANEL total protein 8.2 g/dL 6.3-8. 2 Not Available [facility] (Lab) [address] [facility] [place], [address], 11/06/2022 16:04:20 11/07/19 23 11/06/2022 COMPR EHENS LAURA METAB OLIC PANEL albumin 4.0 g/dL 3.0-4. 4 Not Available [facility] (Lab) [address] [place], [address], 11/06/2022 16:04:20 11/07/19 23 11/06/2022 COMPR EHENS LAURA METAB OLIC PANEL globulin 4.2 g/dL 2.6-4. 2 Not Available [facility] (Lab) [address] [place], [address], 11/06/2022 16:04:20 11/07/19 23 11/06/2022 COMPR EHENS LAURA METAB OLIC PANEL A/G ratio 1.0 ratio 1.0-2. 0 Not Available [facility] (Lab) [address] [place], [address], 11/06/2022 16:04:20 11/07/19 23 11/06/2022 LIPID PANEL cholesterol 137 mg/dL 140-19 9 low NIH OLIVIA NSUS RECOM MENDA TION FOR CHRISTIANO STERO L: ADULT CHILD LOW RISK: <200 <170 BORDE RLINE : <200- 239 ----- HIGH RISK: >240 >200 Not Available [facility] (Lab) [address] [place], [address], 11/06/2022 16:04:25 11/07/19 23 11/06/2022 LIPID PANEL triglyceride s 51 mg/dL 0-150 NIH OLIVIA NSUS REPOR T RECOM MENDA TION FOR TRIGL YCERI MARVA: ADULT CHILD LOW RISK: <150 ----- BODER LINE: 150-1 99 ----- HIGH RISK: >200 ----- Not Available [facility] (Lab) [address] [place], [address], 11/06/2022 16:04:25 11/07/19 23 11/06/2022 LIPID PANEL HDL cholesterol 62 mg/dL 40- Not Available [facility] (Lab) [address] [place], [address], 11/06/2022 16:04:25 11/07/19 23 11/06/2022 LIPID PANEL [...] WILL NOT BE REPOR GINGER. Not Available [facility] (Lab) [address] [place], [address], 11/06/2022 16:04:25 11/07/1911/06/2022 URIC ACID SERUM uric acid 5.2 mg/dL 2.5-6. 2 Not Available [facility] (Lab) [address] [place], [address], 11/06/2022 16:04:31 11/07/19 23 11/06/2022 T4 FREE free T4 1.72 NG/dL 0.78-2 .19 Not Available [facility] (Lab) [address] [place], [address], 11/06/2022 16:04:55 11/07/19 23 11/06/2022 TSH thyroid-stim ulating hormone 1.890 uIU/m L 0.465- 4.680 Not Available [facility] (Lab) [address] [place], [address], 11/06/2022 16:06:46 11/07/19 23 11/06/2022 T3 FREE free T3 3.9 pg/mL 2.77-5 .27 Not Available [facility] (Lab) [address] [place], [address], 11/06/2022 16:36:30 08/06/19 23 07/20/2022 XR, chest No observ ation record ed. [facility] [address] [place], [address], 08/07/2022 16:10:20 08/06/19 23 07/20/2022 XR, chest No observ ation record ed. [facility] [address] [place], [address], 08/07/2022 16:08:56 01/29/20 23 01/20/2023 , echoc ardio gram No observ ation record ed. [email or web address] [facility] [address], [place], [address], 03/01/2023 11:51:45 Result Notes None recorded. Problems Name Problem SNOMED Code Status Onset Date Resolution Date Notes Provider Name and Address Organization Details Recorded Time Benign essential hypertensi on 0980620 Active Florence Rodríguez RN null, [place] - [facility] 11:08:21 Bronchiect asis 57135799 Active 2021 Florence Rodríguez RN null, [facility] 4 11:08:22 Abscess 918893351 Active 2021 Florence Rodríguez RN null, [facility] 4 11:08:22 Chronic obstructiv e pulmonary disease 08730828 Active 2021 Florence Rodríguez RN null, [facility] 4 11:08:22 Urinary incontinen ce 579945362 Active 2022 Florence Rodríguez RN null, [facility] 4 11:08:22 Gastroesop hageal reflux disease 401205233 Active Florence Rodríguez RN null, [facility] 4 11:08:22 Dyspnea 119685507 Active 2021 Florence Rodríguez RN null, [facility] 4 11:08:22 Lesion of breast 983264597 Active Florence Rodríguez RN null, [facility] 4 11:08:22 Sarcoidosi s 31360365 Active 2019 Florence Rodríguez RN null, [facility] 4 11:08:22 Vitamin D deficiency 40362862 Active Florence Rodríguez RN null, [facility] 4 11:08:22 Irregular heart beat 754680111 Completed 201705/29/2017 Not Available [facility] 3 02:58:44 Neuropathy 596956740 Active Florence Rodríguez RN null, [facility] 4 11:08:22 Chronic atrial fibrillati on 139994237 Active 2021 Florence Rodríguez RN null, [facility] 4 11:08:22 Upper respirator y infection 50202125 Active 2021 Florence Rodríguez RN null, [facility] 4 11:08:22 Rhinitis 42708407 Active Florence Rodríguez RN null, [facility] 4 11:08:22 Diabetes mellitus 09004837 Active 2019 Florence Rodríguez RN null, [facility] 4 11:08:22 Palpitatio ns 97758554 Active 2016 Florence Rodríguez RN null, [facility] 4 11:08:22 Skin sensation disturbanc e 79015209 Active Florence Rodríguez RN null, [facility] 4 11:08:22 Gout 62978256 Active 2022 Florence Rodríguez RN null, [facility] 4 11:08:22 Fatigue 14401407 Active 2022 Florence Rodríguez RN null, [facility] 4 11:08:22 Notes:Medical History: Rhini tis Eosinophils 80/uL Severe COPD Hypertension EF 55% Elevated BNP Atrial fibrillation on warfarin Mod AR/MR/TR LAE, ROSIO PASP 41 mmHg T2DM with neuropathy/nephropathy GERD Urge urinary incontinence Vit D deficiency 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 Procedures Surgical History Date Name Laterality Status Provider Name and Address Organization Details Recorded Time 06/15/19 22 drainage of abscess completed Not Available [facility] 04/24/2022 02:51:32 05/30/19 18 Colonoscopy completed Not Available [facility] 04/25/19 02:51:32 05/29/19 18 Date of Last Colonoscopy completed Not Available [facility] 04/24/2022 02:51:28 05/30/19 17 Exc tr-ext b9+tabitha >4.0 cm completed Not Available [facility] 04/24/2022 02:51:32 05/30/19 17 Exc h-f-nk-sp b9+tabitha 2.1-3 completed Not Available [facility] 04/24/2022 02:51:32 Hysterectomy completed Not Available [facility] 04/24/2022 02:51:32 Imaging Results None recorded. Procedure Notes None recorded. Medical Equipment None [...] Available No t Available Fluzone High-Dose Quad 2020-21 (PF) 240 mcg/0.7 mL IM syringe ADM 0.7ML IM UTD 05/10 completed Not Available Not Available Not Available Vitals Date Recorded Body weight Body temperature Respiratory rate Heart rate Oxygen saturation Oxygen saturation in Arterial blood by Pulse oximetry Systolic blood pressure Diastolic blood pressure Provider Name and Address Organization Details Last Updated DateTime 4 02879.1 1 g 95.3 [degF] 20 /min 80 /min 99 % 99 % 152 mm[Hg] 82 mm[Hg] Florence Rodríguez RN [facility] [employer] [facility] 4 11:19:42 Date Recorded Body mass index (BMI) Body height Heart rate Body temperature Body weight Systolic blood pressure Diastolic blood pressure Provider Name and Address Organization Details Last Updated DateTime 3 24.9 kg/m2 170.18 cm 70 /min 98.3 [degF] 21682.1 9 g 118 mm[Hg] 74 mm[Hg] Not Available [facility] 3 02:55:45 Date Recorded Body height Body mass index (BMI) Body weight Body temperature Heart rate Systolic blood pressure Diastolic blood pressure Provider Name and Address Organization Details Last Updated DateTime 3 170.18 cm 24 kg/m2 33589.6 3 g 97.3 [degF] 82 /min 122 mm[Hg] 76 mm[Hg] LEVON Enriquez [facility] [employer] [facility] 3 14:22:31 Date Recorded Body height Body mass index (BMI) Body weight Body temperature Heart rate Systolic blood pressure Diastolic blood pressure Provider Name and Address Organization Details Last Updated DateTime 3 170.18 cm 23 kg/m2 28205.0 8 g 97.8 [degF] 88 /min 118 mm[Hg] 84 mm[Hg] LEVON Enriquez [facility] [employer] [facility] 3 11:41:05 Date Recorded Body height Body mass index (BMI) Body weight Body temperature Heart rate Oxygen saturation Oxygen saturation in Arterial blood by Pulse oximetry Systolic blood pressure Diastolic blood pressure Provider Name and Address Organization Details Last Updated DateTime 3 170.18 cm 23.2 kg/m2 39718.6 7 g 97.8 [degF] 84 /min 97 % 97 % 122 mm[Hg] 80 mm[Hg] Nova Ndiaye RN [place] - [employer] 12:05:14 Social History Question Answer Notes LastModified by Organizat ion Details LastModified Time Tobacco Smoking Status Former Smoker quit May 2022 LEVON Enriquez, [place] - [employer] 08/07/2022 14:21:09 Do You Have An Advance Directive? No [id number].29727 [id number] Information not available 04/24/2022 Do You Wear A Helmet When Biking? No MIGRATION.14661 57081 Information not available 04/24/2022 Are You Blind Or Do You Have Difficulty Seeing? No MIGRATION.49207 68122 Information not available 04/24/2022 What Is Your Level Of Caffeine Consumption? Occasional MIGRATION.76607 25308 Information not available 04/24/2022 How Much Tobacco Do You Chew? None MIGRATION.57315 61589 Information not available 04/24/2022 In The 14 Days Before Symptom Onset, Have You Had Close Contact With A Laboratory-confi rmed COVID-19 While That Case Was Ill? No MIGRATION.76919 67836 Information not available 04/24/2022 In The 14 Days Before Symptom Onset, Have You Had Close Contact With A Person Who Is Under Investigation For COVID-19 While That Person Was Ill? No MIGRATION.95327 93010 Information not available 04/24/2022 Are You Deaf Or Do You Have Serious Difficulty Hearing? No MIGRATION.36481 87564 Information not available 04/24/2022 What Type Of Diet Are You Following? REGULAR MIGRATION.42319 44503 Information not available 04/24/2022 Which Illicit Or Recreational Drugs Have You Used? None MIGRATION.65922 22032 Information not available 04/24/2022 What Is The Highest Grade Or Level Of School You Have Completed Or The Highest Degree You Have Received? [id number] MIGRATION.99452 74526 Information not available 04/24/2022 Have There Been Any Changes To Your Family Or Social Situation? No MIGRATION.83542 52140 Information not available 04/24/2022 Are There Any Guns Present In Your Home? No MIGRATION.89165 80362 Information not available 04/24/2022 Do You Use Insect Repellent Routinely? No MIGRATION.29309 53939 Information not available 04/24/2022 Where Do You Live? [place] MIGRATION.40250 90720 Information not available 04/24/2022 Do You Have A Medical Power Of Evidence Custodian? No MIGRATION.02392 59090 Information not available 04/24/2022 What Was The Date Of Your Most Recent Tobacco Screening? 12/11/2022 [email or web address] Information not available 12/11/2022 Do You Have Any Pets? Yes MIGRATION.03213 44381 Information not available 04/24/2022 What Is Your Relationship Status? MIGRATION.41265 61461 Information not available 04/24/2022 Do You Use Your Seat Belt Or Car Seat Routinely? Yes MIGRATION.22623 99237 Information not available 04/24/2022 Do You Have Smoke And Carbon Monoxide Detectors In Your Home? Yes MIGRATION.78355 37478 Information not available 04/24/2022 At What Age Did You Start Smoking Tobacco? 13 MIGRATION.13173 69475 Information not available 04/24/2022 Are You Passively Exposed To Smoke? Yes MIGRATION.60860 52683 Information not available 04/24/2022 Are There Any Smokers In Your House? Yes MIGRATION.73986 07424 Information not available 04/24/2022 How Much Tobacco Do You Smoke? 0.25 PPD MIGRATION.38491 15648 Information not available 04/24/2022 Do You Use Sunscreen Routinely? No MIGRATION.45600 44083 Information not available 04/24/2022 Have You Recently Traveled Abroad? No MIGRATION.02914 49656 Information not available 04/24/2022 Do You Have Difficulty Walking Or Climbing Stairs? No MIGRATION.96805 73013 Information not available 04/24/2022 Do You Have Any Dietary Restrictions? No MIGRATION.96995 57430 Information not available 04/24/2022 Sex: Female Functional Status Question Answer Note LastModified by Organizat ion Details LastModified Time Do you use any illicit or recreational drugs? No MIGRATION.334191 5790 Information not available 04/24/2022 Do you or have you ever used any other forms of tobacco or nicotine? No MIGRATION.033471 2783 Information not available 04/24/2022 What is your level of alcohol consumption? None MIGRATION.402828 8538 Information not available 04/24/2022 Do you or have you ever used smokeless tobacco? Never used smokeless tobacco MIGRATION.442856 6936 Information not available 04/24/2022 Do you have transportation difficulties? No MIGRATION.970928 8808 Information not available 04/24/2022 Are you able to walk? YESWOREST MIGRATION.822997 6170 Information not available 04/24/2022 Do you have difficulty doing errands alone? No MIGRATION.517181 8936 Information not available 04/24/2022 Are you able to care for yourself? Yes MIGRATION.538303 6746 Information not available 04/24/2022 What is your occupation? retired MIGRATION.532883 2230 Information not available 04/24/2022 Do you have difficulty dressing or bathing? No MIGRATION.815538 5733 Information not available 04/24/2022 Do you or have you ever used e-cigarettes or vape? Never used electronic cigarettes MIGRATION.733198 8150 Information not available 04/24/2022 What is your exercise level? Moderate MIGRATION.314734 4208 Information not available 04/24/2022 Mental Status Question Answer Note LastModified by Organizat ion Details LastModified Time Do you feel stressed (tense, restless, nervous, or anxious, or unable to sleep at night)? [id number] MIGRATION.52184539 26 Information not available 04/24/2022 Do you have difficulty concentrating, remembering or making decisions? No MIGRATION.30496982 26 Information not available 04/24/2022 Family History Relationship Description Onset Age of this Age Resolved Age Notes LastModified by Organization Details LastModified Time Paternal Grandmother General health good MIGRATION.715 [id number] Not available 04/24/2022 02:51:36 Father Congestive heart failure MIGRATION.322 [id number] Not available 04/24/2022 02:51:36 Medical History Condition Response NERVE DISEASE Y BLINDNESS N RHEUMATIC FEVER N KIDNEY STONES N BLADDER PROBLEMS N MRSA N OTHER # 1 N POLIO N LUNG DISEASE/DISORDER Y HISTORY OF DRUG ABUSE N COPD N RADIATION / CHEMOTHERAPY N Other # 2 N BLOOD DISEASES N SURGERY N EAR OR HEARING PROBLEMS N MUMPS N SHINGLES N DEPRESSION (INCLUDING POST ) N BOWEL PROBLEMS N STROKE/TIA N ULCERS N BENIGN PROSTATIC HYPERPLASIA N MEASLES Y HYPOTENSION N MYOCARDIAL INFARCTION N OBESITY N GERD/NAUSEA Y ANEURYSM N URINARY/BLADDER/KIDNEY PROBLEMS N INPATIENT PSYCH CARE N CORONARY ARTERY DISEASE (CAD) N ADDICTION CONCERNS N Impotence N ENDOMETRIOSIS N USE OF BLOOD THINNERS Y SKIN [...] GLAUCOMA N FOOT PROBLEM N DIVERTICULITIS N SLEEP APNEA N CHICKENPOX Y INFECTIOUS DISEASE N PROSTATE N HEART ARRHYTHMIA N INSOMNIA N HIGH CHOLESTEROL / HYPERLIPIDEMIA Y HYPERTHYROIDISM N EYE PROBLEMS N NEUROLOGICAL PROBLEMS N EDEMA N CHRONIC PAIN SYNDROME N HYPOTHYROIDISM N CONSTIPATION N CAROTID BLOCKAGE N BACK / NECK PROBLEMS N HAVE YOU BEEN HOSPITALIZED OR SEEN IN [facility] ER IN THE PAST YEAR ? N ATHEROSCLEROSIS N BREAST PROBLEMS N DIALYSIS N ECZEMA N OSTEOPOROSIS N ARTHRITIS N APPENDICITIS N DIABETES, TYPE Y BAD TEETH N ENT N HEARTBURN / REFLUX N AUTISM SPECTRUM DISORDER (ASD) N HEPATITIS / LIVER DISEASE N PULMONARY DISEASE N GOUT N SLEEP DISORDER N ALZHEIMER'S DISEASE N Brain Problems N HERPES N DEMENTIA N SEIZURES/EPILEPSY N HEADACHES/MIGRAINES N VASCULAR DISEASE N PACEMAKER N Blood Disorder N DIZZINESS N KIDNEY DISEASE N HEART DISEASE/HEART PROBLEMS N MULTIPLE SCLEROSIS N CARDIAC ARRHYTHMIA N CANCER: SPECIFY N ANESTHESIA COMPLICATIONS N Gall Stones N ATRIAL FIBRILLATION Y PULMONARY EMBOLISM N AUTOIMMUNE DISEASE N Gynecological History Statement/Question Response Date of Last Pap Date of Last Mammogram 04/25/2017 Date of Last Colonoscopy 05/28/2017 Obstetrics History GPAL:G 0 P 0 0 0 0 Immunizations Vaccine Type Date Status Note Provider Nam e and Address Organization Details Recorded Time COVID-19, mRNA, LNP-S, PF, 100 mcg/0.5mL dose or 50 mcg/0.25mL dose 01/05/2021 completed Not Available [facility] 3 00:19:52 Influenza, high-dose, quadrivalent, PF 12/31/2020 completed Not Available [facility] 3 00:19:52 COVID-19, mRNA, LNP-S, PF, 100 mcg/0.5mL dose or 50 mcg/0.25mL dose 04/28/2020 completed Not Available [facility] 3 00:19:52 COVID-19, mRNA, LNP-S, PF, 100 mcg/0.5mL dose or 50 mcg/0.25mL dose 03/31/2020 completed Not Available [facility] 3 00:19:52 Influenza, high-dose, quadrivalent, PF 12/20/2019 completed Not Available [facility] 3 00:19:52 Influenza, high-dose, quadrivalent, PF 11/28/2021 completed Not Available [facility] 3 00:19:52 Influenza, high-dose, trivalent, PF 12/27/2015 completed Not Available [facility] 2022 00:19:52 Influenza, split virus, quadrivalent, PF 12/28/2014 completed Not Available [facility] 3 00:19:52 Past Encounters Encounter ID Performer Location Encounter Start Date Encounter Closed Date Diagnosis/Indication Diagnosis SNOMED-CT Code Diagnosis ICD10 Code Diagnosis Note [id number] Himanshu Quinn MD [facility] [address] [place] [address]639 1 05/10/2020 00:00:00 05/21/2020 18:46:10 [id number] Himanshu Quinn MD [facility] [address] [place] [address]-816 1 09/13/2020 00:00:00 09/16/2020 12:37:12 [id number] Himanshu Quinn MD [facility] [address] [place] [address] 1 12/13/2020 00:00:00 12/31/2020 15:04:52 [id number] Forrest Prado MD [facility] [address] [address] 0 12/27/2020 00:00:00 12/27/2020 15:08:33 [id number] Himanshu Quinn MD [facility] [address] [place] [address] 1 03/21/2021 00:00:00 03/21/2021 21:33:36 [id number] Himanshu Quinn MD [facility] [address] [place] [address], [place] [address] 1 06/13/2021 00:00:00 06/23/2021 14:11:34 [id number] Grant cohen MD [facility] General Surgery [address] [address] 1 06/14/2021 00:00:00 06/14/2021 11:56:19 [id number] Grant cohen MD [facility] General Surgery [address] [address] 1 06/19/2021 00:00:00 06/19/2021 13:41:05 [id number] Himanshu Quinn MD [facility] [address] [address] 1 06/21/2021 00:00:00 06/23/2021 14:12:54 [id number] Himanshu Quinn MD [facility] [address] [address] 1 06/27/2021 00:00:00 06/27/2021 21:35:08 [id number] Grant cohen MD [facility] General Surgery [address] [address] 1 07/03/2021 00:00:00 07/03/2021 13:57:08 [id number] Himanshu Quinn MD [facility] [address] [facility] [address] [address] 1 08/06/2021 00:00:00 09/01/2021 16:55:53 [id number] Himanshu Quinn MD [facility] [address] [facility] [address] [address] 1 08/29/2021 00:00:00 08/29/2021 18:26:54 [id number] Himanshu Quinn MD [facility] [address] [facility] [address] [address] 1 11/28/2021 00:00:00 01/13/2022 21:13:52 [id number] Himanshu Quinn MD [facility] Internal Med [facility] [address] [facility] [address] [address] 1 03/27/2022 00:00:00 03/27/2022 22:35:23 [id number] Himanshu Quinn MD [facility] Internal Med [facility] [address] [facility] [address] [address] 1 08/07/2022 14:04:41 08/07/2022 15:35:32 Chronic atrial fibrillation 857120847 I48.20 Bronchiectasis 19891229 J47.9 Chronic ob structive pulmonary disease 49670862 J44.9 Gastroesop hageal reflux disease 070740112 K21.9 Diabetes mellitus 212285 09 E11.9 [id number] Himanshu Quinn MD [facility] Internal Med [facility] [address] [facility] [address] [address] 1 11/06/2022 11:15:40 11/06/2022 12:11:07 Benign essential hypertension 5062559 I10 Diabetes mellitus 188244 09 E11.9 Gout 26949510 M10.9 Fatigue 99989858 R53.83 Chronic at rial fibrillation 068793173 I48.20 Sarcoidosis 76117981 D86 .9 [id number] Himanshu Quinn MD [facility] Internal Med [facility] [address] [facility] [address] [address] 1 12/11/2022 11:19:11 12/11/2022 12:56:13 Bronchiectasis 76843277 J47.9 Chronic at rial fibrillation 300012537 I48.20 Sarcoidosis 60226804 D86 .9 Urinary incontinence 165 697420 R32 Benign ess ential hypertension 6352531 I10 Diabetes mellitus 568783 09 E11.9 [id number] Himanshu Quinn MD [facility] Internal Med [facility] [address] [facility] [address] [address] 1 03/12/2023 11:05:21 03/12/2023 12:17:53 Benign essential hypertension 8319325 I10 Chronic ob structive pulmonary disease 41435039 J44.9 Diabetes mellitus 199885 09 E11.9 Gastroesop hageal reflux disease 973109853 K21.9 Chronic at rial fibrillation 644997291 I48.20 Sarcoidosis 25091768 D86 .9 Health Concerns Section Related Observation LastModified by Organization Detai ls LastModified Time None Recorded Concern Status LastModified by Organization Details LastModified Time None Recorded Advance Directives Directive N: Payers Insurance Date Sequence Insurance Name Policy Number Policy Cortes Covered Member ID Cortes Member ID Guarantor Name 04/07/2023 1 [facility] (MEDICARE REPLACEMENT/A DVANTAGE - PPO) [id number] Jacqueline El [id number] Jacqueline El Notes Date Note Type Note Provider Name and Address Organization Details Recorded Time 08/07/2022 text/html Hospitalized las t month AFib RVR little bit of pneumonia she is feeling better no major changes in her medication regimen diabetes has been doing maría elena Quinn MD [address] [email or web address], [place], [address], [employer] 09/15/2022 18:55:57 11/06/2022 text/html AFib RVR little bit of pneumonia she is feeling better no major changes in her medication regimen diabetes has been doing maría elena Quinn MD [address] [email or web address], [place], [address], [employer] 11/19/2022 10:25:44 12/11/2022 text/html Bronchiectasis d oing fine COPD stable sarcoid cough sometimes AFib no palpitations or dizziness urinary incontinence better hypertension no headache no dizziness diabetes no polyphagia no polydipsia Himanshu Quinn MD [address] [email or web address], [place], [address], [employer] 12/13/2022 11:44:20 03/12/2023 text/html Bronchiectasis d oing fine COPD stable sarcoid cough sometimes AFib no palpitations or dizziness urinary incontinence better hypertension no headache no dizziness diabetes no polyphagia no polydipsia Himanshu Quinn MD [address] [email or web address], [place], [address], [employer] 03/25/2023 09:35:04 OBGyn Episode No OBEpisode recorded.
--- OUTSIDE RECORDS SUMMARY | 2024-08-25 11:04 | XMS_ITS | Referral Summary ---
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
--- OUTSIDE RECORDS SUMMARY | 2024-08-25 11:04 | XMS_ITS | Clinical Summary ---
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
--- OUTSIDE RECORDS SUMMARY | 2024-08-25 11:04 | XMS_ITS | Data Portability ---
Author Organization [facility] [place] Address [address] [address] Care Team Providers Care Automobile Mechanic Name Role Phone SAEID QUINN Primary Care Provider Assessment Encounter Date Assessment Date Assessment LastModified by Organization Details LastModified Time 08/26/2023 08/26/2023 continue current therapy all questions answered about diagnosis and assessment and plan we will follow up in 4 months. [email or web address] Not available 08/26/2023 21:31:02 11/25/2023 11/25/2023 blood work has been ordered advised to stay up-to-date on flu COVID and RSV as well as pneumonia shots she will see me in 3 months continue current therapy [email or web address] Not available 12/07/2023 15:15:46 05/14/2024 05/14/2024 COPD continue wi th inhalers atrial fibrillation she was anticoagulated and is in atrial fibrillation currently rhinitis montelukast GERD omeprazole fleet dispatch manager albuterol and Trelegy she did try to take the Chantix it did not work well for her hypertension felodipine metoprolol hyperuricemia allopurinol blood work ordered she is not interested in pharmacotherapy to stop smoking see me in 3 months [email or web address] Not available 05/15/2024 14:14:21 06/25/2024 06/25/2024 Quit smoking tobacco care instructions were provided. X-ray of the neck. Flexeril 10 mg 1/2 tablet b.i.d. 15. No refill. If this does not improve in the next few days or so she will call back if the x-ray is negative then we will put her on physical therapy she will give us a call in 3-4 days [email or web address] Not available 07/11/2024 11:44:41 08/18/2024 08/18/2024 Abnormal checks as her AC needs a CT scan she is a smoker need to make sure that there was not any masses in her chest she also could have a little bit of traction effect because of scarring from her SHAMIKA. Her blood pressure is controlled AFib seems to be doing fine there has been no flare-ups of gout otherwise there has not been any other problems with rhinitis or her GERD. She will continue all medications and see me in 3 months [email or web address] Not available 08/18/2024 21:53:14 Plan of Treatment Reminders Order Date Submit Date Provider Last Modified By Organization Details Last Modified Time Details Appointments ANY 15 2024 01:15P Grace Quinn MD Not available Not available Not available Lab lipid panel, serum 2024 025 [facility] (Centralized Electronic Ordering - All Locations), Patient Can Go To The Location Of Their Choice, [id number] 08/19/2024 10:11:57 CMP, serum or plasma 2024 025 [facility] ([facility]ized [facility] Ordering - All Locations), Patient Can Go To The Location Of Their Choice, [id number] 08/19/2024 10:11:59 CBC w/ auto diff 2024 025 [facility] ([facility]ized [facility] Ordering - All Locations), Patient Can Go To The Location Of Their Choice, [id number] 08/19/2024 10:12:00 CBC w/ auto diff 2024 025 [facility], [address], [place], [address], 05/15/2024 08:25:01 CMP, serum or plasma 2024 025 [facility], [address], [place], [address], 05/15/2024 08:25:00 lipid panel, serum 2024 025 [facility], [address], [place], [address], 05/15/2024 08:24:59 uric acid, serum or plasma 2023 024 [place] [facility], [address], [place], [address], 11/26/2023 08:31:18 CBC w/ auto diff 2023 024 [place] [facility], [address], [place], [address], 11/26/2023 08:31:19 CMP, serum or plasma 2023 024 [place] [facility] [address], [place], [address], 11/26/2023 08:31:18 lipid panel, serum 2023 024 [place] [facility], [address], [place], [address], 11/26/2023 08:31:17 Referral None recorded. Procedures None recorded. Surgeries None recorded. Imaging XR, cervical spine 2024 025 [facility], [address], [place], [address], 06/28/2024 15:41:28 Medication Orders felodipin e ER 10 mg tablet,ex tended release 24 hr 2024 025 [email or web address] [id number], [address] [place], [place], [id number], 08/18/2024 17:40:19 cyclobenz aprine 10 mg tablet [email or web address] [id number], [address] [place], [place], [id number], 06/25/2024 12:25:43 Patient TargetsNo targets recorded. Patient Instructions Encounter Date Encounter Id Patient Instructions Last Modified By Organization Details Last Modified Time 05/14/2024 [id number] A healthy lifestyle: care instructions [email or web address] Not available 05/14/2024 17:58:26 06/25/2024 [id number] A healthy lifestyle: care instructions Not available 06/25/2024 12:25:43 Quitting Tobacco : Care Instructions [email or web address] Not available 06/25/2024 12:25:43 08/18/2024 [id number] A healthy lifestyle: care instructions [email or web address] Not available 08/18/2024 17:40:19 Quitting Tobacco : Care Instructions [email or web address] Not available 08/18/2024 17:40:19 Reason for Referral None Reported. Results Created Date Observation Date Name Description Value Unit Range Abnormal Flag Note LastModifiedBy Organization Detail LastModifiedTime 11/25/1911/26/2023 LIPID PANEL cholesterol, total 115 mg/dL 100-19 9 Not Available [facility] ([facility]) [address] [place], [address], 11/26/2023 08:31:17 11/25/1911/26/2023 LIPID PANEL triglyceride s 41 mg/dL 0-149 Not Available [facility] ([facility]) [address] [place], [address], 11/26/2023 08:31:17 11/25/1911/26/2023 LIPID PANEL HDL cholesterol 55 mg/dL >39 Not Available [facility] ([facility]) [address] [place], [address], 11/26/2023 08:31:17 11/25/1911/26/2023 LIPID PANEL VLDL cholesterol yonny 11 mg/dL 5-40 Not Available [facility] ([facility]) [address] [place], [address], 11/26/2023 08:31:17 10/01/20 24 11/26/2023 LIPID PANEL LDL chol calc [facility]) 49 mg/dL 0-99 Not Available [facility] ([facility]) [address] [place], [address], 11/26/2023 08:31:17 11/25/19 24 11/26/2023 COMP. METAB OLIC PANEL (14) glucose 136 mg/dL 70-99 above high normal Not Available [facility] ([facility]) [address] [place], [address], 11/26/2023 08:31:17 11/25/19 24 11/26/2023 COMP. METAB OLIC PANEL (14) BUN 11 mg/dL 8-27 Not Available [facility] ([facility]) [address] [place], [address], 11/26/2023 08:31:17 11/25/19 24 11/26/2023 COMP. METAB OLIC PANEL (14) creatinine 0.85 mg/dL 0.57-1 .00 Not Available [facility] ([facility]) [address] [place], [address], 11/26/2023 08:31:17 11/25/19 24 11/26/2023 COMP. METAB OLIC PANEL (14) eGFR 70 mL/mi n/1.7 3 >59 Not Available [facility] ([facility]) [address] [place], [address], 11/26/2023 08:31:17 11/25/19 24 11/26/2023 COMP. METAB OLIC PANEL (14) BUN/creatini ne ratio 13 12-28 Not Available [facility] ([facility]) [address] [place], [address], 11/26/2023 08:31:17 11/25/19 24 11/26/2023 COMP. METAB OLIC PANEL (14) sodium 140 mmol/ L 134-14 4 Not Available [facility] ([facility]) [address] [place], [address], 11/26/2023 08:31:17 11/25/19 24 11/26/2023 COMP. METAB OLIC PANEL (14) potassium 3.9 mmol/ L 3.5-5. 2 Not Available [facility] ([facility]) [address], [place], [address], 11/26/2023 08:31:17 11/25/19 24 11/26/2023 COMP. METAB OLIC PANEL (14) chloride 97 mmol/ L 96-106 Not Available [facility] ([facility]) [address] [place], [address], 11/26/2023 08:31:17 11/25/19 24 11/26/2023 COMP. METAB OLIC PANEL (14) carbon dioxide, total 28 mmol/ L 20-29 Not Available [facility] ([facility]) [address] [place], [address], 11/26/2023 08:31:17 11/25/19 24 11/26/2023 COMP. METAB OLIC PANEL (14) calcium 9.0 mg/dL 8.7-10 .3 Not Available [facility] ([facility]) [address] [place], [address], 11/26/2023 08:31:17 11/25/19 24 11/26/2023 COMP. METAB OLIC PANEL (14) protein, total 7.9 g/dL 6.0-8. 5 Not Available [facility] ([facility]) [address] [place], [address], 11/26/2023 08:31:17 11/25/1911/26/2023 COMP. METAB OLIC PANEL (14) albumin 3.5 g/dL 3.8-4. 8 below low normal Not Available [facility] ([facility]) [address] [place], [address], 11/26/2023 08:31:17 11/25/19 24 11/26/2023 COMP. METAB OLIC PANEL (14) globulin, total 4.4 g/dL 1.5-4. 5 Not Available [facility] ([facility]) [address] [facility], [place], [address], 11/26/2023 08:31:17 11/25/19 24 11/26/2023 COMP. METAB OLIC PANEL (14) bilirubin, total 0.5 mg/dL 0.0-1. 2 Not Available [facility] ([facility]) [address] [facility], [place], [address], 11/26/2023 08:31:17 11/25/1911/26/2023 COMP. METAB OLIC PANEL (14) alkaline phosphatase 93 IU/L 44-121 Not Available [facility] ([facility]) [address] [facility], [place], [address], 11/26/2023 08:31:17 11/25/19 24 11/26/2023 COMP. METAB OLIC PANEL (14) AST (SGOT) 23 IU/L 0-40 Not Available [facility] ([facility]) [address] [place], [address], 11/26/2023 08:31:17 11/25/19 24 11/26/2023 COMP. METAB OLIC PANEL (14) ALT (SGPT) 11 IU/L 0-32 Not Available [facility] ([facility]) [address] [place], [address], 11/26/2023 08:31:17 11/25/19 24 11/26/2023 URIC ACID uric acid 5.6 mg/dL 3.1-7. 9 Charlie hood for gout patie nts: <6.0 Not Available [facility] ([facility]) [address] [place], [address], 11/26/2023 08:31:18 11/25/19 24 11/26/2023 CBC WITH DIFFE RENTI AL/PL ATELE T WBC 8.5 x10e3 /uL 3.4-10 .8 Not Available [facility] ([facility]) [address] [facility], [place], [address], 11/26/2023 08:31:19 11/25/19 24 11/26/2023 CBC WITH DIFFE RENTI AL/PL ATELE T RBC 4.06 x10e6 /uL 3.77-5 .28 Not Available [facility] ([facility]) [address] [facility], [place], [address], 11/26/2023 08:31:19 11/25/19 24 11/26/2023 CBC WITH DIFFE RENTI AL/PL ATELE T hemoglobin 12.3 g/dL 11.1-1 5.9 Not Available [facility] ([facility]) [address] [facility], [place], [address], 11/26/2023 08:31:19 11/25/19 24 11/26/2023 CBC WITH DIFFE RENTI AL/PL ATELE T hematocrit 37.8 % 34.0-4 6.6 Not Available [facility] ([facility]) [address] [facility], [place], [address], 11/26/2023 08:31:19 11/25/19 24 11/26/2023 CBC WITH DIFFE RENTI AL/PL ATELE T MCV 93 fL 79-97 Not Available [facility] ([facility]) [address] [facility], [place], [address], 11/26/2023 08:31:19 11/25/1911/26/2023 CBC WITH DIFFE RENTI AL/PL ATELE T MCH 30.3 pg 26.6-3 3.0 Not Available [facility] ([facility]) [address] [facility], [place], [address], 11/26/2023 08:31:19 11/25/19 24 11/26/2023 CBC WITH DIFFE RENTI AL/PL ATELE T MCHC 32.5 g/dL 31.5-3 5.7 Not Available [facility] ([facility]) [address] [facility], [place], [address], 11/26/2023 08:31:19 11/25/19 24 11/26/2023 CBC WITH DIFFE RENTI AL/PL ATELE T RDW 13.2 % 11.7-1 5.4 Not Available [facility] ([facility]) [address] [facility], [place], [address], 11/26/2023 08:31:19 11/25/19 24 11/26/2023 CBC WITH DIFFE RENTI AL/PL ATELE T platelets 224 x10e3 /uL 150-45 0 Not Available [facility] ([facility]) [address] [facility], [place], [address], 11/26/2023 08:31:19 11/25/19 24 11/26/2023 CBC WITH DIFFE RENTI AL/PL ATELE T neutrophils 70 % notest ab. Not Available [facility] ([facility]) [address] [facility], [place], [address], 11/26/2023 08:31:19 11/25/19 24 11/26/2023 CBC WITH DIFFE RENTI AL/PL ATELE T lymphs 20 % notest ab. Not Available [facility] ([facility]) [address] [facility], [place], [address], 11/26/2023 08:31:19 11/25/19 24 11/26/2023 CBC WITH DIFFE RENTI AL/PL ATELE T monocytes 8 % notest ab. Not Available [facility] ([facility]) [address] [facility], [place], [address], 11/26/2023 08:31:19 11/25/19 24 11/26/2023 CBC WITH DIFFE RENTI AL/PL ATELE T eos 1 % notest ab. Not Available [facility] ([facility]) [address] [facility], [place], [address], 11/26/2023 08:31:19 11/25/1911/26/2023 CBC WITH DIFFE RENTI AL/PL ATELE T basos 1 % notest ab. Not Available [facility] ([facility]) [address] [facility], [place], [address], 11/26/2023 08:31:19 11/25/1911/26/2023 CBC WITH DIFFE RENTI AL/PL ATELE T neutrophils (absolute) 6.0 x10e3 /uL 1.4-7. 0 Not Available [facility] ([facility]) [address] [facility], [place], [address], 11/26/2023 08:31:19 11/25/1911/26/2023 CBC WITH DIFFE RENTI AL/PL ATELE T lymphs (absolute) 1.7 x10e3 /uL 0.7-3. 1 Not Available [facility] ([facility]) [address] [facility], [place], [address], 11/26/2023 08:31:19 11/25/1911/26/2023 CBC WITH DIFFE RENTI AL/PL ATELE T monocytes(ab solute) 0.7 x10e3 /uL 0.1-0. 9 Not Available [facility] ([facility]) [address] [facility], [place], [address], 11/26/2023 08:31:19 11/25/1911/26/2023 CBC WITH DIFFE RENTI AL/PL ATELE T eos (absolute) 0.1 x10e3 /uL 0.0-0. 4 Not Available [facility] ([facility]) [address] [facility], [place], [address], 11/26/2023 08:31:19 11/25/1917 1211/26/2023 CBC WITH DIFFE RENTI AL/PL ATELE T baso (absolute) 0.0 x10e3 /uL 0.0-0. 2 Not Available [facility] ([facility]) [address] [facility], [place], [address], 11/26/2023 08:31:19 11/25/19 24 11/26/2023 CBC WITH DIFFE RENTI AL/PL ATELE T immature granulocytes 0 % notest ab. Not Available [facility] ([facility]) [address] [facility], [place], [address], 11/26/2023 08:31:19 11/25/19 24 11/26/2023 CBC WITH DIFFE RENTI AL/PL ATELE T immature grans (abs) 0.0 x10e3 /uL 0.0-0. 1 Not Available [facility] ([facility]) [address] [place], [address], 11/26/2023 08:31:19 05/15/19 25 05/15/2024 LIPID PANEL cholesterol, total 130 mg/dL 100-19 9 Not Available [facility] ([facility]) [address] [place], [address], 05/15/2024 08:24:59 05/15/19 25 05/15/2024 LIPID PANEL triglyceride s 38 mg/dL 0-149 Not Available [facility] ([facility]) [address] [place], [address], 05/15/2024 08:24:59 05/15/19 25 05/15/2024 LIPID PANEL HDL cholesterol 60 mg/dL >39 Not Available [facility] ([facility]) [address] [place], [address], 05/15/2024 08:24:59 05/15/19 25 05/15/2024 LIPID PANEL VLDL cholesterol yonny 10 mg/dL 5-40 Not Available [facility] ([facility]) [address] [facility], [place], [address], 05/15/2024 08:24:59 05/15/19 25 05/15/2024 LIPID PANEL LDL chol calc ([facility]) 60 mg/dL 0-99 Not Available [facility] ([facility]) [address] [facility], [place], [address], 05/15/2024 08:24:59 05/15/19 25 05/15/2024 COMP. METAB OLIC PANEL (14) glucose 111 mg/dL 70-99 above high normal Not Available [facility] ([facility]) [address] [place], [address], 05/15/2024 08:25:00 05/15/19 25 05/15/2024 COMP. METAB OLIC PANEL (14) BUN 12 mg/dL 8-27 Not Available [facility] ([facility]) [address] [place], [address], 05/15/2024 08:25:00 05/15/19 25 05/15/2024 COMP. METAB OLIC PANEL (14) creatinine 0.81 mg/dL 0.57-1 .00 Not Available [facility] ([facility]) [address] [place], [address], 05/15/2024 08:25:00 05/15/19 25 05/15/2024 COMP. METAB OLIC PANEL (14) eGFR 74 mL/mi n/1.7 3 >59 Not Available [facility] ([facility]) [address] [place], [address], 05/15/2024 08:25:00 05/15/19 25 05/15/2024 COMP. METAB OLIC PANEL (14) BUN/creatini ne ratio 15 12-28 Not Available [facility] ([facility]) [address] [place], [address], 05/15/2024 08:25:00 05/15/19 25 05/15/2024 COMP. METAB OLIC PANEL (14) sodium 141 mmol/ L 134-14 4 Not Available [facility] ([facility]) [address] [place], [address], 05/15/2024 08:25:00 05/15/19 25 05/15/2024 COMP. METAB OLIC PANEL (14) potassium 4.1 mmol/ L 3.5-5. 2 Not Available [facility] ([facility]) [address] [place], [address], 05/15/2024 08:25:00 05/15/19 25 05/15/2024 COMP. METAB OLIC PANEL (14) chloride 100 mmol/ L 96-106 Not Available [facility] ([facility]) [address] [place], [address], 05/15/2024 08:25:00 05/15/19 25 05/15/2024 COMP. METAB OLIC PANEL (14) carbon dioxide, total 28 mmol/ L 20-29 Not Available [facility] ([facility]) [address] [place], [address], 05/15/2024 08:25:00 05/15/19 25 05/15/2024 COMP. METAB OLIC PANEL (14) calcium 9.1 mg/dL 8.7-10 .3 Not Available [facility] ([facility]) [address] [place], [address], 05/15/2024 08:25:00 05/15/19 25 05/15/2024 COMP. METAB OLIC PANEL (14) protein, total 8.2 g/dL 6.0-8. 5 Not Available [facility] ([facility]) [address] [place], [address], 05/15/2024 08:25:00 05/15/19 25 05/15/2024 COMP. METAB OLIC PANEL (14) albumin 3.8 g/dL 3.8-4. 8 Not Available [facility] ([facility]) [address] [facility], [place], [address], 05/15/2024 08:25:00 05/15/19 25 05/15/2024 COMP. METAB OLIC PANEL (14) globulin, total 4.4 g/dL 1.5-4. 5 Not Available [facility] ([facility]) [address] [facility], [place], [address], 05/15/2024 08:25:00 05/15/19 25 05/15/2024 COMP. METAB OLIC PANEL (14) bilirubin, total 0.5 mg/dL 0.0-1. 2 Not Available [facility] ([facility]) [address] [facility], [place], [address], 05/15/2024 08:25:00 05/15/19 25 05/15/2024 COMP. METAB OLIC PANEL (14) alkaline phosphatase 111 IU/L 44-121 Not Available [facility] ([facility]) [address] [facility], [place], [address], 05/15/2024 08:25:00 05/15/19 25 05/15/2024 COMP. METAB OLIC PANEL (14) AST (SGOT) 24 IU/L 0-40 Not Available [facility] ([facility]) [address] [facility], [place], [address], 05/15/2024 08:25:00 05/15/19 25 05/15/2024 COMP. METAB OLIC PANEL (14) ALT (SGPT) 17 IU/L 0-32 Not Available [facility] ([facility]) [address] [place], [address], 05/15/2024 08:25:00 05/15/19 25 05/15/2024 CBC WITH DIFFE RENTI AL/PL ATELE T WBC 8.7 x10e3 /uL 3.4-10 .8 Not Available [facility] ([facility]) [address] [facility], [place], [address], 05/15/2024 08:25:01 05/15/19 25 05/15/2024 CBC WITH DIFFE RENTI AL/PL ATELE T RBC 4.25 x10e6 /uL 3.77-5 .28 Not Available [facility] ([facility]) [address] [facility], [place], [address], 05/15/2024 08:25:01 05/15/19 25 05/15/2024 CBC WITH DIFFE RENTI AL/PL ATELE T hemoglobin 13.0 g/dL 11.1-1 5.9 Not Available [facility] ([facility]) [address] [facility], [place], [address], 05/15/2024 08:25:01 05/15/1905/15/2024 CBC WITH DIFFE RENTI AL/PL ATELE T hematocrit 39.8 % 34.0-4 6.6 Not Available [facility] ([facility]) [address] [place], [address], 05/15/2024 08:25:01 05/15/19 25 05/15/2024 CBC WITH DIFFE RENTI AL/PL ATELE T MCV 94 fL 79-97 Not Available [facility] ([facility]) [address] [place], [address], 05/15/2024 08:25:01 05/15/1905/15/2024 CBC WITH DIFFE RENTI AL/PL ATELE T MCH 30.6 pg 26.6-3 3.0 Not Available [facility] ([facility]) [address] [place], [address], 05/15/2024 08:25:01 05/15/19 25 05/15/2024 CBC WITH DIFFE RENTI AL/PL ATELE T MCHC 32.7 g/dL 31.5-3 5.7 Not Available [facility] ([facility]) [address], [place], [address], 05/15/2024 08:25:01 05/15/19 25 05/15/2024 CBC WITH DIFFE RENTI AL/PL ATELE T RDW 13.0 % 11.7-1 5.4 Not Available [facility] ([facility]) [address] [facility], [place], [address], 05/15/2024 08:25:01 05/15/19 25 05/15/2024 CBC WITH DIFFE RENTI AL/PL ATELE T platelets 216 x10e3 /uL 150-45 0 Not Available [facility] ([facility]) [address] [facility], [place], [address], 05/15/2024 08:25:01 05/15/19 25 05/15/2024 CBC WITH DIFFE RENTI AL/PL ATELE T neutrophils 62 % notest ab. Not Available [facility] ([facility]) [address] [facility], [place], [address], 05/15/2024 08:25:01 05/15/19 25 05/15/2024 CBC WITH DIFFE RENTI AL/PL ATELE T lymphs 28 % notest ab. Not Available [facility] ([facility]) [address] [facility], [place], [address], 05/15/2024 08:25:01 05/15/19 25 05/15/2024 CBC WITH DIFFE RENTI AL/PL ATELE T monocytes 8 % notest ab. Not Available [facility] ([facility]) [address] [facility], [place], [address], 05/15/2024 08:25:01 05/15/19 25 05/15/2024 CBC WITH DIFFE RENTI AL/PL ATELE T eos 1 % notest ab. Not Available [facility] ([facility]) [address] [facility], [place], [address], 05/15/2024 08:25:01 05/15/19 25 05/15/2024 CBC WITH DIFFE RENTI AL/PL ATELE T basos 1 % notest ab. Not Available [facility] ([facility]) [address] [facility], [place], [address], 05/15/2024 08:25:01 05/15/19 25 05/15/2024 CBC WITH DIFFE RENTI AL/PL ATELE T neutrophils (absolute) 5.4 x10e3 /uL 1.4-7. 0 Not Available [facility] ([facility]) [address] [facility], [place], [address], 05/15/2024 08:25:01 05/15/19 25 05/15/2024 CBC WITH DIFFE RENTI AL/PL ATELE T lymphs (absolute) 2.4 x10e3 /uL 0.7-3. 1 Not Available [facility] ([facility]) [address] [facility], [place], [address], 05/15/2024 08:25:01 05/15/19 25 05/15/2024 CBC WITH DIFFE RENTI AL/PL ATELE T monocytes(ab solute) 0.7 x10e3 /uL 0.1-0. 9 Not Available [facility] ([facility]) [address] [facility], [place], [address], 05/15/2024 08:25:01 05/15/19 25 05/15/2024 CBC WITH DIFFE RENTI AL/PL ATELE T eos (absolute) 0.1 x10e3 /uL 0.0-0. 4 Not Available [facility] ([facility]) [address] [facility], [place], [address], 05/15/2024 08:25:01 05/15/19 25 05/15/2024 CBC WITH DIFFE RENTI AL/PL ATELE T baso (absolute) 0.1 x10e3 /uL 0.0-0. 2 Not Available [facility] ([facility]) [address] [facility], [place], [address], 05/15/2024 08:25:01 05/15/1905/15/2024 CBC WITH DIFFE RENTI AL/PL ATELE T immature granulocytes 0 % notest ab. Not Available [facility] ([facility]) [address] [facility], [place], [address], 05/15/2024 08:25:01 05/15/1905/15/2024 CBC WITH DIFFE RENTI AL/PL ATELE T immature grans (abs) 0.0 x10e3 /uL 0.0-0. 1 Not Available [facility] ([facility]) [address] [facility], [place], [address], 05/15/2024 08:25:01 08/19/19 25 08/19/2024 LIPID PANEL cholesterol, total 124 mg/dL 100-19 9 Not Available [facility] ([facility]) [address] [facility], [place], [address], 08/19/2024 10:11:57 08/19/19 25 08/19/2024 LIPID PANEL triglyceride s 55 mg/dL 0-149 Not Available [facility] ([facility]) [address] [place], [address], 08/19/2024 10:11:57 08/19/19 25 08/19/2024 LIPID PANEL HDL cholesterol 54 mg/dL >39 Not Available [facility] ([facility]) [address] [place], [address], 08/19/2024 10:11:57 08/19/19 25 08/19/2024 LIPID PANEL VLDL cholesterol yonny 12 mg/dL 5-40 Not Available [facility] ([facility]) [address] [facility], [place], [address], 08/19/2024 10:11:57 08/19/19 25 08/19/2024 LIPID PANEL LDL chol calc ([facility]) 58 mg/dL 0-99 Not Available [facility] ([facility]) [address] [place], [address], 08/19/2024 10:11:57 08/19/19 25 08/19/2024 COMP. METAB OLIC PANEL (14) glucose 157 mg/dL 70-99 above high normal Not Available [facility] ([facility]) [address] [place], [address], 08/19/2024 10:11:59 08/19/19 25 08/19/2024 COMP. METAB OLIC PANEL (14) BUN 13 mg/dL 8-27 Not Available [facility] ([facility]) [address] [place], [address], 08/19/2024 10:11:59 08/19/19 25 08/19/2024 COMP. METAB OLIC PANEL (14) creatinine 0.82 mg/dL 0.57-1 .00 Not Available [facility] ([facility]) [address] [place], [address], 08/19/2024 10:11:59 08/19/19 25 08/19/2024 COMP. METAB OLIC PANEL (14) eGFR 73 mL/mi n/1.7 3 >59 Not Available [facility] ([facility]) [address] [place], [address], 08/19/2024 10:11:59 08/19/19 25 08/19/2024 COMP. METAB OLIC PANEL (14) BUN/creatini ne ratio 16 12-28 Not Available [facility] ([facility]) [address] [place], [address], 08/19/2024 10:11:59 08/19/19 25 08/19/2024 COMP. METAB OLIC PANEL (14) sodium 139 mmol/ L 134-14 4 Not Available [facility] ([facility]) [address] [place], [address], 08/19/2024 10:11:59 08/19/19 25 08/19/2024 COMP. METAB OLIC PANEL (14) potassium 4.3 mmol/ L 3.5-5. 2 Not Available [facility] ([facility]) [address] [place], [address], 08/19/2024 10:11:59 08/19/19 25 08/19/2024 COMP. METAB OLIC PANEL (14) chloride 98 mmol/ L 96-106 Not Available [facility] [address] [facility] [place] [address], 08/19/2024 10:11:59 08/19/19 25 08/19/2024 COMP. METAB OLIC PANEL (14) carbon dioxide, total 25 mmol/ L 20-29 Not Available [facility] ([facility]) [address] [facility] [place], [address], 08/19/2024 10:11:59 08/19/19 25 08/19/2024 COMP. METAB OLIC PANEL (14) calcium 9.1 mg/dL 8.7-10 .3 Not Available [facility] ([facility]) [address] [facility] [place], [address], 08/19/2024 10:11:59 08/19/19 25 08/19/2024 COMP. METAB OLIC PANEL (14) protein, total 7.7 g/dL 6.0-8. 5 Not Available [facility] ([facility]) [address] [facility] [place], [address], 08/19/2024 10:11:59 08/19/19 25 08/19/2024 COMP. METAB OLIC PANEL (14) albumin 3.5 g/dL 3.8-4. 8 below low normal Not Available [facility] ([facility]) [address] [facility] [place], [address], 08/19/2024 10:11:59 08/19/19 25 08/19/2024 COMP. METAB OLIC PANEL (14) globulin, total 4.2 g/dL 1.5-4. 5 Not Available [facility] ([facility]) [address] [facility], [place], [address], 08/19/2024 10:11:59 08/19/19 25 08/19/2024 COMP. METAB OLIC PANEL (14) bilirubin, total 0.5 mg/dL 0.0-1. 2 Not Available [facility] ([facility]) [address] [facility], [place], [address], 08/19/2024 10:11:59 08/19/19 25 08/19/2024 COMP. METAB OLIC PANEL (14) alkaline phosphatase 100 IU/L 44-121 Not Available [facility] ([facility]) [address] [place], [address], 08/19/2024 10:11:59 08/19/19 25 08/19/2024 COMP. METAB OLIC PANEL (14) AST (SGOT) 25 IU/L 0-40 Not Available [facility] ([facility]) [address] [facility], [place], [address], 08/19/2024 10:11:59 08/19/19 25 08/19/2024 COMP. METAB OLIC PANEL (14) ALT (SGPT) 12 IU/L 0-32 Not Available [facility] ([facility]) [address] [place], [address], 08/19/2024 10:11:59 08/19/19 25 08/19/2024 CBC WITH DIFFE RENTI AL/PL ATELE T WBC 8.2 x10e3 /uL 3.4-10 .8 Not Available [facility] ([facility]) [address] [place], [address], 08/19/2024 10:12:00 08/19/1908/19/2024 CBC WITH DIFFE RENTI AL/PL ATELE T RBC 4.09 x10e6 /uL 3.77-5 .28 Not Available [facility] ([facility]) [address] [place], [address], 08/19/2024 10:12:00 08/19/1908/19/2024 CBC WITH DIFFE RENTI AL/PL ATELE T hemoglobin 12.4 g/dL 11.1-1 5.9 Not Available [facility] ([facility]) [address] [place], [address], 08/19/2024 10:12:00 08/19/1908/19/2024 CBC WITH DIFFE RENTI AL/PL ATELE T hematocrit 39.1 % 34.0-4 6.6 Not Available [facility] ([facility]) [address] [place], [address], 08/19/2024 10:12:00 08/19/1908/19/2024 CBC WITH DIFFE RENTI AL/PL ATELE T MCV 96 fL 79-97 Not Available [facility] ([facility]) [address] [place], [address], 08/19/2024 10:12:00 08/19/1908/19/2024 CBC WITH DIFFE RENTI AL/PL ATELE T MCH 30.3 pg 26.6-3 3.0 Not Available [facility] ([facility]) [address] [place], [address], 08/19/2024 10:12:00 08/19/1908/19/2024 CBC WITH DIFFE RENTI AL/PL ATELE T MCHC 31.7 g/dL 31.5-3 5.7 Not Available [facility] ([facility]) [address] [place], [address], 08/19/2024 10:12:00 08/19/1908/19/2024 CBC WITH DIFFE RENTI AL/PL ATELE T RDW 13.5 % 11.7-1 5.4 Not Available [facility] ([facility]) [address] [facility], [place], [address], 08/19/2024 10:12:00 08/19/1908/19/2024 CBC WITH DIFFE RENTI AL/PL ATELE T platelets 218 x10e3 /uL 150-45 0 Not Available [facility] ([facility]) [address] [facility], [place], [address], 08/19/2024 10:12:00 08/19/1908/19/2024 CBC WITH DIFFE RENTI AL/PL ATELE T neutrophils 68 % notest ab. Not Available [facility] ([facility]) [address] [facility], [place], [address], 08/19/2024 10:12:00 08/19/1908/19/2024 CBC WITH DIFFE RENTI AL/PL ATELE T lymphs 22 % notest ab. Not Available [facility] ([facility]) [address] [facility], [place], [address], 08/19/2024 10:12:00 08/19/1908/19/2024 CBC WITH DIFFE RENTI AL/PL ATELE T monocytes 8 % notest ab. Not Available [facility] ([facility]) [address] [facility], [place], [address], 08/19/2024 10:12:00 08/19/1908/19/2024 CBC WITH DIFFE RENTI AL/PL ATELE T eos 1 % notest ab. Not Available [facility] ([facility]) [address] [facility], [place], [address], 08/19/2024 10:12:00 08/19/1908/19/2024 CBC WITH DIFFE RENTI AL/PL ATELE T basos 1 % notest ab. Not Available [facility] ([facility]) [address] [place], [address], 08/19/2024 10:12:00 08/19/19 25 08/19/2024 CBC WITH DIFFE RENTI AL/PL ATELE T neutrophils (absolute) 5.6 x10e3 /uL 1.4-7. 0 Not Available [facility] ([facility]) [address] [place], [address], 08/19/2024 10:12:00 08/19/19 25 08/19/2024 CBC WITH DIFFE RENTI AL/PL ATELE T lymphs (absolute) 1.8 x10e3 /uL 0.7-3. 1 Not Available [facility] ([facility]) [address] [place], [address], 08/19/2024 10:12:00 08/19/19 25 08/19/2024 CBC WITH DIFFE RENTI AL/PL ATELE T monocytes(ab solute) 0.6 x10e3 /uL 0.1-0. 9 Not Available [facility] ([facility]) [address] [place], [address], 08/19/2024 10:12:00 08/19/19 25 08/19/2024 CBC WITH DIFFE RENTI AL/PL ATELE T eos (absolute) 0.1 x10e3 /uL 0.0-0. 4 Not Available [facility] ([facility]) [address] [place], [address], 08/19/2024 10:12:00 08/19/1908/19/2024 CBC WITH DIFFE RENTI AL/PL ATELE T baso (absolute) 0.0 x10e3 /uL 0.0-0. 2 Not Available [facility] ([facility]) [address] [place], [address], 08/19/2024 10:12:00 08/19/19 25 08/19/2024 CBC WITH DIFFE RENTI AL/PL ATELE T immature granulocytes 0 % notest ab. Not Available [facility] ([facility]) [address] [facility], [place], [address], 08/19/2024 10:12:00 08/19/19 25 08/19/2024 CBC WITH DIFFE RENTI AL/PL ATELE T immature grans (abs) 0.0 x10e3 /uL 0.0-0. 1 Not Available [facility] ([facility]) [address] [facility], [place], [address], 08/19/2024 10:12:00 06/27/19 25 06/25/2024 XR, cervi yonny spine No observ ation record ed. [facility] [address], [place], [address], 08/05/2024 11:55:54 Result Notes None recorded. Problems Name Problem SNOMED Code Status Onset Date Resolution Date Notes Provider Name and Address Organization Details Recorded Time Essential hypertension 80201566 Active 2023 Saeid Quinn MD Attn: Sada cooley,[address] [place], [address], [place] - [place] 4 15:07:02 Atrial fibrillation 39062357 Active 2023 Saeid Quinn MD Attn: Sada cooley,[address] [place], [address], [place] [facility] 4 15:07:03 Pulmonary Mycobacterium avium complex infection 169199008 Active 2023 Saeid Quinn MD Attn: Sada cooley,[address] [place], [address], [place] 4 15:07:04 Gastroesophage al reflux disease without esophagitis 571909577 Active 2023 Saeid Quinn MD Attn: Sada cooley,[address] [place], [address], [facility] - [facility] 4 15:07:08 Chronic rhinitis 89497583 Active 2023 Saeid Quinn MD Attn: Sada cooley,[address] [facility], [place], [address], [facility] - SI 4 15:07:09 Chronic obstructive pulmonary disease 92202450 Active 2023 Saeid Quinn MD Attn: Sada cooley,[address] [facility], [place], [address], [facility] - SI 4 15:07:10 Neck pain 66162323 Active 2024 Kristy Liriano MA [facility], [place] - [facility] 5 11:31:58 Plain X-ray of chest abnormal Active 2024 Saeid Quinn MD Attn: Sada cooley,[address] [facility], [place], [address], [facility] - SI 5 21:53:40 Problem Notes None recorded. Procedures Surgical History Date Name Laterality Status Provider Name and Address Organization Details Recorded Time Eye Surgery completed Olegario Hayward MA [facility] 04/30/2023 10:46:19 Total hysterectomy completed Olegario Hayward MA [facility] 04/30/2023 10:46:26 Imaging Results None recorded. Procedure Notes None recorded. Medical Equipment None Reported. Allergies No known drug allergies Medications Name Sig Start Date Stop Date Status Note LastModified by Organization Details LastModified Time cyclobenz aprine 10 mg tablet TAKE 1/2 TABLET BY MOUTH TWICE DAILY NEEDED FOR NECK SPASMS active Not Available Not Available No t Available furosemid e 40 mg tablet TAKE 1 [...] TAKE 1 CAPSULE BY MOUTH EVERY DAY 2024 active Not Available Not Available Not Avai lable felodipin e ER 10 mg tablet,ex tended release 24 hr Take 1 tablet every day by oral route. 2024 active Not Available Not Available Not [...] Updated DateTime 5 170.18 cm 22.3 kg/m2 52859.8 4 g 69 /min 96 % 96 % 130 mm[Hg] 70 mm[Hg] Vianney Padilla [facility] 5 15:00:07 Date Recorded Body height Body mass index (BMI) Body weight Heart rate Oxygen saturation Oxygen saturation in Arterial blood by Pulse oximetry Systolic blood pressure Diastolic blood pressure Provider Name and Address Organization Details Last Updated DateTime 5 170.18 cm 21.9 kg/m2 38686.2 1 g 60 /min 96 % 96 % 130 mm[Hg] 80 mm[Hg] Bita Davis MA [facility] SI 5 10:42:41 Date Recorded Body height Body mass index (BMI) Body weight Heart rate Oxygen saturation Oxygen saturation in Arterial blood by Pulse oximetry Systolic blood pressure Diastolic blood pressure Provider Name and Address Organization Details Last Updated DateTime 5 170.18 cm 21.6 kg/m2 37264.4 7 g 94 /min 99 % 99 % 138 mm[Hg] 74 mm[Hg] Bita Davis MA [facility] SI 5 14:43:05 Date Recorded Body height Body mass index (BMI) Body weight Heart rate Oxygen saturation Oxygen saturation in Arterial blood by Pulse oximetry Systolic blood pressure Diastolic blood pressure Provider Name and Address Organization Details Last Updated DateTime 4 170.18 cm 22.4 kg/m2 57604.9 9 g 67 /min 99 % 99 % 124 mm[Hg] 82 mm[Hg] Olegario Hayward MA [facility] 4 11:23:07 Date Recorded Body height Body mass index (BMI) Body weight Respiratory rate Oxygen saturation Oxygen saturation in Arterial blood by Pulse oximetry Heart rate Systolic blood pressure Diastolic blood pressure Provider Name and Address Organization Details Last Updated DateTime 4 170.18 cm 21.8 kg/m2 64754.4 2 g 18 /min 97 % 97 % 60 /min 136 mm[Hg] 74 mm[Hg] Tracy Hayward MA [facility] 11:35:08 Social History Question Answer Notes LastModified by Organizat ion Details LastModified Time Tobacco Smoking Status Current Some Day Smoker pt says when things get on her nerves she smokes 3-4 cigarettes Tracy HEMANT Hayward [place], [place] - [facility] 11/25/2023 11:42:24 Are You Blind Or Do You Have [...] Date Of Your Most Recent Tobacco Screening? 08/18/2024 Information not available 08/18/2024 What Is Your Current Pack Years? 10-19packyear [...] crevisma Information not available 11/25/2023 Do You Use Sunscreen Routinely? No Information not available 04/30/2023 Has Tobacco Cessation Counseling Been Provided? Yes Information not available 04/30/2023 On What Date Was Tobacco Cessation Counseling Provided? 08/18/2024 Information not available 08/18/2024 Sex: Female Functional Status Question Answer Note LastModified by Organizat ion Details LastModified Time Do you use any illicit or recreational drugs? No Information not available 04/30/2023 Do you or have you ever used any other forms of tobacco or nicotine? No Information not available 04/30/2023 What is your level of alcohol consumption? None Information not available 04/30/2023 Are you able to care for yourself? Yes Information not available 04/30/2023 What is your exercise level? None Information not available 05/27/2023 Mental Status Question Answer Note LastModified by Organization D etails LastModified Time Do you feel stressed (tense, restless, nervous, or anxious, or unable to sleep at night)? [id number] Information not available 04/30/2023 Family History Nothing Reported. Medical History Condition Response Coronary Artery Disease N Other N Atrial Fibrillation N High Blood Pressure Y Kidney or Bladder Problems N Thyroid Problems N GI Problems N Depression N COPD Y Blood Clots N Skin Problems N Anemia N Heart Attack ([place]) N Anxiety Disorder N Diabetes N Muscle, Joint, or Bone Problems N Seizures/Epilepsy N Acid Reflux (GERD) N Cancer N Stroke N Asthma N Allergies N High Cholesterol N Hepatitis N Liver Disease N Headaches N Heart Failure N Osteoporosis N Gynecological History Statement/Question Response If Post Menopausal, Age at Menopause 38 Obstetrics History GPAL:G 2 P 2 0 0 1 Type Value Full Term 2 Living 1 Total 2 Immunizations Vaccine Type Date Status Note Provider Nam e and Address Organization Details Recorded Time Influenza, high-dose, quadrivalent, PF 2 completed Amy [place] null, [place] - [facility] 07/28/2023 15:50:11 Influenza, high-dose, quadrivalent, PF 3 completed Amy [place] [facility] 07/28/2023 15:50:11 Influenza, high-dose, quadrivalent, PF 0 completed Amy [place] [facility] 07/28/2023 15:50:11 Influenza, high-dose, quadrivalent, PF 1 completed Amy [place] [facility] 07/28/2023 15:50:11 Influenza, adjuvanted, quadrivalent, PF 1 completed [place] [facility] 07/28/2023 15:50:11 COVID-19, mRNA, LNP-S, PF, 100 mcg/0.5mL dose or 50 mcg/0.25mL dose 1 completed Amy [place] [facility] 07/28/2023 15:50:11 COVID-19, mRNA, LNP-S, PF, 100 mcg/0.5mL dose or 50 mcg/0.25mL dose 1 completed Amy [place] [facility] 07/28/2023 15:50:11 COVID-19, mRNA, LNP-S, PF, 100 mcg/0.5mL dose or 50 mcg/0.25mL dose 1 completed [place] [facility] 07/28/2023 15:50:11 COVID-19, mRNA, LNP-S, bivalent, PF, 30 mcg/0.3 mL dose 2 completed [place] [facility] 07/28/2023 15:50:11 COVID-19, mRNA, LNP-S, PF, 50 mcg/0.5 mL 3 completed [place] [facility] 07/28/2023 15:50:11 Influenza, high-dose, trivalent, PF 0 completed [place] [facility] 07/28/2023 15:50:11 Influenza, high-dose, trivalent, PF 6 completed [place] [facility] 07/28/2023 15:50:11 Influenza, split virus, trivalent, preservative 4 completed [place] [facility] 07/28/2023 15:50:11 Influenza, split virus, quadrivalent, PF 5 completed [place] [facility] 07/28/2023 15:50:11 Pneumococcal conjugate PCV21, polysaccharide HEQ163 conjugate, PF 4 completed Not Available [facility] 08/18/2024 14:27:17 COVID-19, mRNA, LNP-S, PF, 50 mcg/0.5 mL 4 completed Not Available [facility] 08/18/2024 14:27:17 Influenza, high-dose, trivalent, PF 4 completed Saeid Quinn MD Attn: Accounting[address] [place], [address], [facility] - [facility] 12/07/2023 15:14:38 Past Encounters Encounter ID Performer Location Encounter Start Date Encounter Closed Date Diagnosis/Indication Diagnosis SNOMED-CT Code Diagnosis ICD10 Code Diagnosis Note [id number] MD Laurie Driscoll (Adult Med) [address] [place] [id number] 04/30/2023 09:58:59 04/30/2023 11:52:43 Essential hypertension 46865141 I10 Atrial fibrillation 4943 6004 I48.91 Pulmonary Mycobacterium avium complex infection 398734917 A31.0 Gastroesop hageal reflux disease without esophagitis 773013841 K21.9 Chronic rhinitis 6848208 6 J31.0 Chronic ob structive pulmonary disease 30508706 J44.9 [id number] MD Laurie Driscoll (Adult Med) [address] [place] [id number] 05/27/2023 11:18:26 05/27/2023 12:51:10 Essential hypertension 43291836 I10 Atrial fibrillation 4943 6004 I48.91 Pulmonary Mycobacterium avium complex infection 734728821 A31.0 Gastroesop hageal reflux disease without esophagitis 962431344 K21.9 Chronic rhinitis 4901754 6 J31.0 Chronic ob structive pulmonary disease 23898786 J44.9 [id number] MD Laurie Driscoll (Adult Med) [address] [place] [id number] 08/26/2023 11:06:50 08/26/2023 12:22:45 Chronic obstructive pulmonary disease 07509957 J44.9 Atrial fibrillation 4943 6004 I48.91 Gastroesop hageal reflux disease without esophagitis 810215392 K21.9 Chronic rhinitis 5510216 6 J31.0 [id number] MD Laurie Driscoll (Adult Med) [address] [place] [id number] 11/25/2023 11:10:07 11/25/2023 12:08:59 Essential hypertension 70180071 I10 Gout 25638773 M10.9 Administra tion of influenza vaccine 53884921 Z23 Pulmonary Mycobacterium avium complex infection 958728023 A31.0 Gastroesop hageal reflux disease without esophagitis 210636192 K21.9 Chronic ob structive pulmonary disease 85874438 J44.9 Atrial fibrillation 4943 6004 I48.91 [id number] [facility] [address] [place] [id number] 05/14/2024 14:43:09 05/14/2024 15:54:31 Body mass index 20-24 - normal 136401738 Z68.22 Overweight 468032785 E66 .3 Essential hypertension 91625182 I10 Gastroesop hageal reflux disease without esophagitis 722941420 K21.9 Atrial fibrillation 4943 6004 I48.91 Chronic ob structive pulmonary disease 55124140 J44.9 Chronic rhinitis 5655095 6 J31.0 [id number] Saeid Quinn MD [facility] (Adult Med) [address] [place] [id number] 06/25/2024 10:24:38 06/25/2024 11:48:40 Cigarette smoker 74232557 F17.210 Smoker 36762133 F17.200 Normal weight 42386283 Z 68.21 Overweight 056527786 E66 .3 Neck pain 28010921 M54.2 [id number] Saeid Quinn MD Laurie (Adult Med) [address] [place] [id number] 08/18/2024 14:26:04 08/18/2024 15:20:22 Smoker 68083705 F17.200 Normal weight 17827284 Z 68.21 Essential hypertension 52835892 I10 Atrial fibrillation 4943 6004 I48.91 Gastroesop hageal reflux disease without esophagitis 056133579 K21.9 Plain X-ra y of chest abnormal 9868935317 R93.89 Health Concerns Section Related Observation LastModified by Organization Detai ls LastModified Time None Recorded Concern Status LastModified by Organization Details LastModified Time None Recorded Advance Directives Directive None Recorded Payers Insurance Date Sequence Insurance Name Policy Number Policy Cortes Covered Member ID Cortes Member ID Guarantor Name 08/15/2024 1 [facility] (MEDICARE REPLACEMENT/A DVANTAGE - HMO) [id number] Jacqueline El [id number] Jacqueline El Notes Date Note Type Note Provider Name and Address Organization Details Recorded Time 08/26/2023 text/html Hypertension no headache or dizziness atrial fibrillation no palpitations does not like she has got a pass out SHAMIKA some cough GERD no nausea or vomiting chronic rhinitis stable COPD no wheezing Saeid Quinn MD Attn: Accounting[address] [place], [address], [facility] 08/26/2023 21:31:19 11/25/2023 text/html atrial fibrillation no headache no palpitations. Gout no red hot swollen joints. hypertension no palpitations or dizziness. Chronic rhinitis stable. GERD doing fine on current medications. COPD no cough or wheezing at this time. SHAMIKA no fever chills night sweats weight loss Saeid Quinn MD Attn: Accounting[address] [place], [address], [facility] 12/07/2023 15:16:08 05/14/2024 text/html COPD no cough wheezing or shortness of breath GERD denies nausea or vomiting atrial fibrillation she was wearing a heart monitor from Cardiology currently rhinitis has been stable on current medical management blood pressure has been continues to smoke Vianney Padilla [place] null, [place] [facility] 05/17/2024 11:56:16 06/25/2024 text/html 2-3 days of neck pain worse with movement she was out in the wind last Friday so she thought that was it no fever chills she does have cough from time to time but she does not feel any different except that it hurts to turn her head from left to right no numbness or tingling in arms no problems walking Tylenol with little bit of help heat helps as well Saeid Quinn MD Attn: Accounting[address] [place], [address], [place] [facility] 07/11/2024 11:45:25 08/18/2024 text/html Hypertension no headache or dizziness. Atrial fibrillation she has not had any palpitations weak spells or lightheadedness. GERD no nausea no vomiting she feels good with regards to that. She had a chest x-ray done that showed some tracheal deviation and she has not got the CT scan done yet she is not having any shortness of breath there has not been any fever chills night sweats or weight loss Saeid Quinn MD Attn: Accounting[address] [facility], [place], [address], [facility] - [facility] 08/18/2024 21:53:57 OBGyn Episode No OBEpisode recorded.
--- OUTSIDE RECORDS SUMMARY | 2024-08-25 11:04 | XMS_ITS | Continuity of Care Document ---
Author Organization [facility] Address [address] [place] [address] [address] [place] [address] Phone Care Team Providers Care [employer] Name Role Phone Abdulaziz Mak MD Unavailable [...] Providers Copied on Encounter Office/outpat ient Visit, [facility], [address] [place] [address] [address], [place], [place], [address], [place] tel:[phone] [facility] No Information Oct-1 8-200 7 Aubree Cintron. [address] [facility] [place], [place], [place], [address], [place]. tel:[phone] Office/outpat ient Visit, [facility], [address], [place], [place], [address], [place] tel:[phone] [facility] No Information Sep-0 4-200 7 Aubree Cintron. [address], [place], [place], [address], [place]. tel:[phone] [facility], [address], [place], [place], [address], [place] tel:[phone] [facility] No Information 8[address] [employer] . [address] [facility], [address], [place], [place], [address], [place]. tel:[phone] Referring Provider: Abdulaziz Keen, [address] [facility] [address], [place], [address] . tel:[phone] sulting Provider: Dave Coelho, [facility], [place], [address]. tel:[phone] Office/outpat ient Visit, [facility] [employer] [facility], [address], [place], [place], [address], [place] tel:[phone] [facility] No Information 8200 7 Aubree Cintron. [address] [facility], [facility] [place], [address], [place]. tel:[phone] [facility], [address], [place], [place], [address], [place] tel:[phone] [facility] No Information 0[address] 7 [employer] . [address] [facility] [address], [address], [place], [place], [address], [place]. tel:[phone] Referring Provider: Abdulaziz Keen, [address] [facility], [place], [address] . tel:[phone] sulting Provider: Dave Coelho, [facility], [place], [address]. tel:[phone] Office/outpat ient Visit, [facility], [address], [place], [place], [address], [place] tel:[phone] [facility] No Information 0200 7 Aubree Cintron. [address] [facility] [address], [place], [place], [address], [place]. tel:[phone] Family History Family Member Type Diagnosis Age At Onset No Information Payers Payer name Insurance type Covered green party ID Authoriza tion(s) No Information Social History [...]
[2024-08-25 11:23] LABS: Estimated Glomerular Filt Rate 60
== END 2024-08-25 10:47 | disposition home or self-care (01) ==
PROVIDERS: PCP Internal Medicine; Visit Provider Internal Medicine
DX: R93.89 Abnormal findings on diagnostic imaging of other specified body structures (principal)
CPT/HCPCS: 71260; Q9967

== ENCOUNTER 2024-11-03 12:04 | Outpatient (CLI) | payer MEDICARE, SELFPAY ==
--- OUTSIDE RECORDS SUMMARY | 2024-11-03 12:58 | XMS_ITS | Clinical Summary ---
Author Organization [facility] [address] Address [address] [place] [address] Care Team Providers Care Inside Sales Professional Name Role Phone Himanshu Quinn MD Primary Care Provider [phone] Allergies No known active allergies Medications lisinopril [...] on file Legal Sex Female 5:39 AM [employer]UST[employer]ER [employer]PPORT [employer]LY[employer] Gender Identity Not on file Sexual Orientation [...] Plan of Treatment Not on file Insurance [facility] Member Subscriber Plan / Payer (Ef fective 2016-Present) Name:Jacqueline El Relation to Subscriber:Self Name:Jacqueline El Payer ID:[id number] ([facility]) Type:Not on file Address: [facility] [address] [place] [address] Care Teams Inside Sales Professional Relationship Specialty Start Date End Date Himanshu Quinn MD PCP - General Internal Medicine 10/21/16
--- NOTE | 2024-11-12 14:24 | P.PCNPFT_ITS ---
PFT Procedure Performed PFT Procedure Performed Spirometry with Pre/Post Bronchodilator Plethysmography (Lung Vol) Diffusing Cap (DLCO) Flow Vol Loop PFT Interpretation DOS: 11/03/2024 REQUESTING: Forrest Prado MD REASON FOR TESTING: severe COPD PULMONARY FUNCTION TESTS Results are reliable and reproducible. Repeatability of spirometry FEV1 maneuver pre and post bronchodilator is Grade A. Mainor: GLI 2012 reference equations were used. Spirometry: The pre-bronchodilator FEV1 is 0.90 L, 47%, reduced. The pre- bronchodilator FVC is 1.60 L, 64%, mildly reduced. The FEV1/FVC ratio is 56%, reduced, consistent with airflow obstruction. After bronchodilator, the FEV1 is 0.92 L, 48% predicted, +2%. After bronchodilator, the FVC is 1.66 L, 66%, +4%. The FEV1/FVC ratio is 55%. Lung volumes: The total lung capacity is 5.43 L, 109%, normal. the functional residual capacity is 4.37 L, 131%, normal. The residual volume is 3.83 L, 159%, elevated. The RV/TLC is 71%, elevated. Airway resistance is increased. Diffusion: DLCO is 6.4, 31%, severely reduced. The DLCO/VA is 2.86, 72%, nor mal. Flow volume loop: The flow volume loop shows coving of the expiratory limb consistent with airflow obstruction. IMPRESSION: This study shows an extremely severe obstructive ventilatory impa irment with an insignificant response to bronchodilator, moderately severe air trapping and severe diffusion impairment. Lack of response to bronchodilator should not preclude use if clinically indicated. There are no prior studies for comparison. Starr Riggs MD
== END 2024-11-03 12:05 | disposition home or self-care (01) ==
PROVIDERS: PCP Internal Medicine; Visit Provider Internal Medicine Pulmonary Disease
DX: J44.9 Chronic obstructive pulmonary disease, unspecified (principal)
CPT/HCPCS: 94060; 94726; 94729